=== PATIENT | male | born 1950 | race Caucasian/White ===

== ENCOUNTER 2017-09-20 06:46 | Outpatient (CLI) | payer OTHER, SELFPAY ==
[2017-09-20 07:27] LABS: Abs Immature Grans 0.02 k/cumm (0.0-0.09); Absolute Basophil Count 0.02 k/cumm (0.0-0.2); Absolute Eosinophil Count 0.12 k/cumm (0.0-0.7); Absolute Lymphocyte Count 1.92 k/cumm (1.2-3.4); Absolute Monocyte Count 0.45 k/cumm (0.11-0.7); Absolute Neutrophil Count 4.27 k/cumm (1.2-6.7); Basophils % 0.3; Eosinophils % 1.8; HCT 34.5 % (40.0-50.0); HGB 11.3 g/dL (13.5-17.5); Immature Grans % 0.3; Lymphocytes % 28.2; Mean Corp. HGB Concentration 32.8 g/dL (32.0-36.0); Mean Corpuscular Hemoglobin 31.7 pg (27.0-33.0); Mean Corpuscular Volume 96.6 fL (80-95); Mean Platelet Volume 9.5 fL (8.0-11.0); Monocytes % 6.6; Neutrophils % 62.8; Platelet Count 182 x1000/uL (130-400); RBC 3.57 m/cumm (4.50-6.00)
[2017-09-20 07:39] LABS: ALT 27 U/L (12-78); AST 24 U/L (15-37); Albumin 3.9 g/dL (3.4-5.0); Alkaline Phosphatase 96 U/L (46-116); Anion Gap 6.9 mmol/L (3-11); BUN 31 mg/dL (7-18); Bilirubin, Total 0.5 mg/dL (0.2-1.0); CO2 28.1 mmol/L (21.0-32.0); CREATININE 1.27 mg/dL (0.70-1.30); Calcium 8.8 mg/dL (8.5-10.1); Chloride 101 mmol/L (98-107); Glucose 112 mg/dL (70-100); Potassium 4.3 mmol/L (3.5-5.1); Sodium 136 mmol/L (136-145); Total Protein 7.7 g/dL (6.4-8.2)
[2017-09-23 10:02] LABS: PSA, Diagnostic 92.4 ng/ml (0-4.5)
== END 2017-09-20 06:47 ==
PROVIDERS: PCP Specialist/Technologist Athletic Trainer; Visit Provider Internal Medicine
DX: C61 Malignant neoplasm of prostate (principal)
CPT/HCPCS: 36415; 80053; 84153; 85025

== ENCOUNTER 2017-11-20 00:55 | Outpatient (CLI) | payer OTHER, SELFPAY ==
--- NOTE | 2017-11-20 10:40 | MERGE_ITS ---
*[facility]* *[facility]* [address] [place] [address] Date of study: 11/20/2017 Transthoracic Echocardiography M-mode, complete 2D, complete spectral Doppler, and color Doppler *STUDY CONCLUSIONS* Impressions: Significantly improved LV function. Summary: 1. Left ventricle: The cavity size was at the upper limits of normal. Wall thickness was normal. Systolic function was moderately to severely reduced. The estimated ejection fraction was 30-35%. Moderate diffuse hypokinesis with regional variations. Severe hypokinesis of the apical myocardium. 2. Aortic valve: There was trivial regurgitation. 3. Mitral valve: Mild thickening. There was mild regurgitation. 4. Right ventricle: The cavity size was at the upper limits of normal. Wall thickness was normal. Pacer wire or catheter noted in right ventricle. Systolic function was mildly reduced. 5. Pulmonary arteries: Pulmonary systolic pressure was mildly increased. PA peak pressure: 40mm Hg (S). *PATIENT PRESENTATION* Height: 165.1cm ((65in) ) S/D Pressure: 92 / 61 Weight: 85.3kg ((187.6lb) ) BSA: 2.01m^2 Test start time: 10:45 AM. Test stop time: 11:45 AM. PERFORMING Unknown PERFORMING [facility] SUPERVISOR [employer] POND Ann-Marie Patel RT (R)(CT), [facility] ORDERING Sara Burrell REFERRING Sara Burrell *PROCEDURE DATA* Procedure information: The patient was identified by two identifiers. This study was interpreted by [facility]. Pertinent images and digital data are archived for permanent storage and are available for subsequent review. Comparison was made to the study of 10/26/2016. Study status: Routine. Transthoracic echocardiography. M-mode, complete 2D, complete spectral Doppler, and color Doppler. A Transthoracic Echocardiogram was performed. Scanning was performed from the parasternal, apical, subcostal, and suprasternal notch acoustic windows. Images were obtained using an [id number] cardiac ultrasound machine. Image quality was fair. Study completion: The patient tolerated the procedure well. History: PMH: Cardiomyopathy. Systolic congestive heart failure. *CARDIAC ANATOMY* Left ventricle: The cavity size was at the upper limits of normal. Wall thickness was normal. Systolic function was moderately to severely reduced. The estimated ejection fraction was 30-35%. Moderate diffuse hypokinesis with regional variations. Regional wall motion abnormalities: Severe hypokinesis of the apical myocardium. Aortic valve: Trileaflet; normal thickness leaflets. Mobility was not restricted. Doppler: Transvalvular velocity was within the normal range. There was no stenosis. There was trivial regurgitation. VTI ratio of LVOT to aortic valve: 0.81. Valve area (VTI): 2.4cm^2. Indexed valve area (VTI): 1.2cm^2/m^2. Peak velocity ratio of LVOT to aortic valve: 0.74. Valve area (Vmax): 2.2cm^2. Indexed valve area (Vmax): 1.1cm^2/m^2. Mean velocity ratio of LVOT to aortic valve: 0.68. Valve area (Vmean): 2cm^2. Indexed valve area (Vmean): 1cm^2/m^2. Mean gradient (S): 4.2mm Hg. Peak gradient (S): 7.7mm Hg. Aorta: Aortic root: The aortic root was normal in size. Ascending aorta: The ascending aorta was normal in size. Mitral valve: Mild thickening. Mobility was not restricted. Doppler: Transvalvular velocity was within the normal range. There was no evidence for stenosis. There was mild regurgitation. Valve area by pressure half-time: 3.1cm^2. Indexed valve area by pressure half-time: 1.5cm^2/m^2. Left atrium: The atrium was at the upper limits of normal in size. Right ventricle: The cavity size was at the upper limits of normal. Wall thickness was normal. Pacer wire or catheter noted in right ventricle. Systolic function was mildly reduced. Pulmonic valve: Poorly visualized. Doppler: Transvalvular velocity was within the normal range. There was no evidence for stenosis. There was trivial regurgitation. Tricuspid valve: Structurally normal valve. Doppler: Transvalvular velocity was within the normal range. There was no evidence for stenosis. There was mild regurgitation. Pulmonary artery: Poorly visualized. Pulmonary systolic pressure was mildly increased. Right atrium: The atrium was normal in size. Pacer wire or catheter noted in right atrium. Pericardium: There was no pericardial effusion. Systemic veins: Inferior vena cava: Well visualized. The vessel was patent and normal in size. The respirophasic diameter changes were in the normal range (greater than or equal to 50%), consistent with normal central venous pressure. Baseline ECG: Normal sinus rhythm. Measurements Left ventricle Value 10/26/2016 Reference LV ID, ED, PLAX 5.7 cm 6.3 3.5 - 6.0 LV ID, ES, PLAX (H) 4.9 cm 5.6 2.1 - 4.0 LV PW thickness, ED, PLAX 0.9 cm 0.7 --------- LV end-diastolic volume, 155 ml 190 --------- 1-p A4C LV ejection fraction, 1-p 35 % 11 --------- A4C LV e', lateral 0.094 m/sec --------- LV E/e', lateral 7 --------- LV e', medial 0.071 m/sec --------- LV E/e', medial 9 --------- LV e', average 0.082 m/sec --------- LV E/e', average 8 --------- Ventricular septum Value 10/26/2016 Reference IVS thickness, ED, PLAX 0.9 cm 1.0 --------- LVOT Value 10/26/2016 Reference LVOT ID, A-P 1.9 cm 1.9 --------- LVOT area 2.9 cm^2 2.8 --------- LVOT peak velocity, S 1.03 m/sec 0.68 --------- LVOT mean velocity, S 0.66 m/sec --------- LVOT VTI, S 22.8 cm 12.1 --------- LVOT peak gradient, S 4.3 mm Hg --------- LVOT mean gradient, S 2.1 mm Hg 0.8 --------- Stroke volume (SV), LVOT DP 66 ml --------- Stroke index (SV/bsa), LVOT 33 ml/m^2 --------- DP Aortic valve Value 10/26/2016 Reference Aortic valve peak velocity, 1.4 m/sec --------- S Aortic valve mean velocity, 0.98 m/sec --------- S Aortic valve VTI, S 28.0 cm --------- Aortic mean gradient, S 4.2 mm Hg 3 --------- Aortic peak gradient, S 7.7 mm Hg 5 --------- VTI ratio, LVOT/AV 0.81 0.69 --------- Aortic valve area, VTI 2.4 cm^2 2 --------- Velocity ratio, peak, 0.74 --------- LVOT/AV Aortic valve area, peak 2.2 cm^2 1.8 --------- velocity Velocity ratio, mean, 0.68 --------- LVOT/AV Aortic valve area, mean 2 cm^2 --------- velocity Aortic valve area/bsa, mean 1 cm^2/m^2 --------- velocity Aorta Value 10/26/2016 Reference Aortic root ID, ED 3.1 cm 3.0 --------- Ascending aorta ID, A-P, S 3.2 cm 3.1 --------- RVOT Value 10/26/2016 Reference RVOT VTI, S 15.9 cm 10.2 --------- Left atrium Value 10/26/2016 Reference LA ID, A-P, ES 5.0 cm --------- LA ID/bsa, A-P (H) 2.5 cm/m^2 <=2.2 LA area, ES, A2C 18 cm^2 --------- LA volume/bsa, ES, 1-p A4C 33 ml/m^2 46 --------- LA/aortic root ratio 1.61 1.55 --------- Mitral valve Value 10/26/2016 Reference Mitral E-wave peak velocity 0.65 m/sec 0.85 --------- Mitral A-wave peak velocity 0.9 m/sec 0.3 --------- Mitral deceleration time (H) 248 ms 150 - 230 Mitral pressure half-time 72 ms 34 --------- Mitral E/A ratio, peak 0.72 2.88 --------- Mitral valve area, PHT, DP 3.1 cm^2 6.5 --------- Pulmonary arteries Value 10/26/2016 Reference PA pressure, S, DP (H) 40 mm Hg <=30 Tricuspid valve Value 10/26/2016 Reference Tricuspid regurg peak 2.8 m/sec 3.1 --------- velocity Tricuspid peak RV-RA 30.3 mm Hg 38.8 --------- gradient Systemic veins Value 10/26/2016 Reference Estimated CVP 10 mm Hg --------- Right ventricle Value 10/26/2016 Reference RV pressure, S, DP (H) 40 mm Hg <=30 Legend: (L) and (H) dorothy values outside specified reference range. I have personally reviewed the images and have reviewed and edited the reported findings. Electronically signed by Felix Montalvo 11/20/2017 21:09
== END 2017-11-20 01:15 ==
PROVIDERS: PCP Specialist/Technologist Athletic Trainer; Visit Provider Nurse Practitioner
DX: I25.5 Ischemic cardiomyopathy (principal); I50.22 Chronic systolic (congestive) heart failure; I50.1 Left ventricular failure, unspecified; I34.0 Nonrheumatic mitral (valve) insufficiency; Z95.810 Presence of automatic (implantable) cardiac defibrillator
CPT/HCPCS: 93306

== ENCOUNTER 2017-11-28 07:00 | Outpatient (CLI) | payer OTHER, SELFPAY ==
[2017-11-28 08:17] LABS: Anion Gap 8.8 mmol/L (3-11); BUN 23 mg/dL (7-18); CO2 29.2 mmol/L (21.0-32.0); CREATININE 1.04 mg/dL (0.70-1.30); Calcium 9.2 mg/dL (8.5-10.1); Chloride 102 mmol/L (98-107); Glucose 112 mg/dL (70-100); NT-proBNP 402 pg/mL; Potassium 4.3 mmol/L (3.5-5.1); Sodium 140 mmol/L (136-145)
== END 2017-11-28 07:20 ==
PROVIDERS: PCP Specialist/Technologist Athletic Trainer; Visit Provider Nurse Practitioner
DX: R06.02 Shortness of breath (principal); I25.5 Ischemic cardiomyopathy
CPT/HCPCS: 36415; 80048; 83880

== ENCOUNTER 2017-12-23 00:16 | Outpatient (CLI) | payer OTHER, SELFPAY ==
[2017-12-23 07:28] LABS: Abs Immature Grans 0.01 k/cumm (0.0-0.09); Absolute Basophil Count 0.02 k/cumm (0.0-0.2); Absolute Eosinophil Count 0.12 k/cumm (0.0-0.7); Absolute Lymphocyte Count 1.48 k/cumm (1.2-3.4); Absolute Monocyte Count 0.52 k/cumm (0.11-0.7); Absolute Neutrophil Count 4.15 k/cumm (1.2-6.7); Basophils % 0.3; Eosinophils % 1.9; HGB 9.8 g/dL (13.5-17.5); Immature Grans % 0.2; Lymphocytes % 23.5; Mean Corp. HGB Concentration 30.6 g/dL (32.0-36.0); Mean Corpuscular Hemoglobin 28.8 pg (27.0-33.0); Mean Corpuscular Volume 94.1 fL (80-95); Mean Platelet Volume 8.5 fL (8.0-11.0); Monocytes % 8.3; Neutrophils % 65.8; Platelet Count 202 x1000/uL (130-400)
[2017-12-23 07:41] LABS: ALT 19 U/L (12-78); AST 26 U/L (15-37); Albumin 3.4 g/dL (3.4-5.0); Alkaline Phosphatase 91 U/L (46-116); Anion Gap 6.5 mmol/L (3-11); BUN 25 mg/dL (7-18); Bilirubin, Total 0.4 mg/dL (0.2-1.0); CO2 30.5 mmol/L (21.0-32.0); Calcium 8.8 mg/dL (8.5-10.1); Chloride 101 mmol/L (98-107); Glucose 111 mg/dL (70-100); Potassium 3.8 mmol/L (3.5-5.1); Sodium 138 mmol/L (136-145); Total Protein 6.9 g/dL (6.4-8.2)
[2017-12-23 08:21] LABS: NT-proBNP 395 pg/mL
[2017-12-24 09:39] LABS: PSA, Diagnostic 179.4 ng/ml (0-4.5)
[2017-12-25 04:03] LABS: Testosterone, Total <7.0 ng/dL (240-950)
== END 2017-12-23 00:36 ==
PROVIDERS: PCP Specialist/Technologist Athletic Trainer; Visit Provider Internal Medicine
DX: C61 Malignant neoplasm of prostate (principal); I50.20 Unspecified systolic (congestive) heart failure; I25.5 Ischemic cardiomyopathy
CPT/HCPCS: 36415; 80053; 84403; 83880; 84153; 85025

== ENCOUNTER 2018-02-14 05:09 | Emergency (ER) | payer OTHER, SELFPAY ==
[2018-02-14 05:18] VITALS: BP 119/68; PULSE 79; RESP 16; TEMP 36.5; O2SAT 96
--- NOTE | 2018-02-14 05:48 | W.ED.GENAD ---
Discharge Plan Disposition Patient Disposition: HOME Condition: Good Discharge Details Chief Complaint: Urinary Clinical Impression: Hematuria Primary Care Provider: Nolberto Robert ED Provider: Barak Felton Home Meds and New Rx's Prescriptions: New cephalexin [Keflex] 500 mg capsule 500 mg PO BID 7 Days Qty: 14 RF: 0 No Action leuprolide 1 MG/0.2 ML kit 22.5 mg SQ every 3 mos RF: 0 cholecalciferol (vitamin D3) 1,000 UNITS tablet 2 tab PO DAILY RF: 0 calcium carbonate-vitamin D3 [Calcium 600 + D(3)] 1 EACH tablet 1 ea PO DAILY RF: 0 losartan 50 MG tablet 50 mg PO QAM RF: 0 atorvastatin [Lipitor] 40 MG tablet 40 mg PO HS RF: 0 torsemide 20 MG tablet 120 mg PO DAILY RF: 0 metoprolol succinate [Toprol XL] 50 MG tablet extended release 24 hr 75 mg PO DAILY RF: 0 aspirin [Aspir-81] 81 MG tablet,delayed release (DR/EC) 81 mg PO DAILY RF: 0 Discharge Instructions Instructions: Hematuria (ED) Additional Instructions: Please follow-up with Dr. Prakash on Saturday. If you notice an inability to pass urine, large clots causing pain, worsening pain in your pelvis abdomen or genitals, please return to the ER immediately. Please take the antibiotic as directed. If you notice any worsening of your symptoms, or any new symptoms such as vomiting, diarrhea, fever, chills, shortness of breath, chest pain, numbness, weakness, or fainting , please return immediately to the emergency department for reevaluation. Please follow up with your primary care provider as soon as possible for reassessment and reevaluation. As always, it was a pleasure participating in your medical care today. Referrals: Owen Prakash MD [ [facility] STAFF PHYSICIAN] - Discharge Data Discharge Date/Time-TO BE ENTERED AT DEPARTURE: 02/14/18 09:03 Medical Decision Making <Shine Contreras MD - Last Filed: 02/15/18 00:42> Patient presenting with gross hematuria. He has no pain or fever. He is no longer on Plavix and only takes a baby aspirin a day. He does have a history of prostate cancer. He, by report, did not have cystoscopy or workup following his gross hematuria in September. He does not appear to be in distress. Case is discussed with urology, Dr. Prakash. He does agree that patient probably should have repeat cystoscopy and workup. We will therefore place an IV and get CBC and chemistry for renal function. Plan CT scan with IV contrast as long as creatinine allows for it. Bladder scan in the ED shows only about 125 mL's present. Creatinine is normal. CBC with normal white count. Hemoglobin a little bit lower than baseline but not significant. Urinalysis without clots just blood. CT scan has been completed but not read. Patient will be signed over to Dr. Felton who will follow up on CT results and discuss with Dr. Prakash prior to discharge. Lab Data Lab results reviewed: Yes I reviewed the patient's lab results. <Barak Felton DO - Last Filed: 02/14/18 08:32> The patient was signed out to me by my colleague Dr. Contreras. Patient continues to have reassuring vital signs, CT scan results demonstrate notably inflamed and irritated looking prostate with mild left-sided hydronephrosis. Patient's renal function is stable. Creatinine is 0.99. He is still able to make to rate. He has no significant pain. Contacted Dr. Prakash and discussed the case with him, he feels that patient would benefit from cystoscopy in the outpatient setting secondary to his chronic medical conditions. We will set that up for Saturday morning. He also recommends antibiotic on the end term. Patient will be started on Keflex. I discussed the imaging with radiology and they see no other acute process in the abdomen at this time. Patient will be discharged home with close follow-up on Saturday. We discussed red flags which to return. I have extensively reviewed the treatment plan and discharge instructions with the patient and their family. I have addressed all patient concerns at this time. The patient and family was made aware of what symptoms to monitor for that would warrant a return to the emergency department. Discussed the plan with the patient and family, they demonstrate verbal understanding and agreement with our assessment and plan at this time. HPI <Shine Contreras MD - Last Filed: 02/15/18 00:42> General Mode of arrival: ambulatory. Date/Time Provider Initiated Documentation: 02/14/18 05:48. Limitations to Documentation: no limitations. Information obtained by: patient. HPI Narrative: Patient presents to ED with gross hematuria. Patient reports that it started last evening. This morning seems to be worse with some clots. He is not having any pain. He has no fever. He is not having significant difficulty urinating. He does have a history of metastatic prostate cancer for which he is followed by heme/onc. He does not have a urologist. He did have workup by urology including cystoscopy back in 2007 at the onset of his diagnosis of prostate cancer. In September he had gross hematuria resulting in a large clot in his bladder. Apparently went to [facility] where the clot was cleared and he was taken off Plavix. He did not have further workup and had no repeat cystoscopy or imaging done. He had been doing well until last evening. Related Data Home Medications Medication Instructions Recorded Confirmed leuprolide 22.5 mg SQ every 3 mos kit 05/16/15 02/14/18 calcium carbonate-vitamin D3 1 ea PO DAILY 09/01/15 02/14/18 [Calcium 600 + D(3)] cholecalciferol (vitamin D3) 2 tab PO DAILY 09/01/15 02/14/18 aspirin [Aspir-81] 81 mg PO DAILY 11/03/16 02/14/18 atorvastatin [Lipitor] 40 mg PO HS 11/03/16 02/14/18 metoprolol succinate [Toprol XL] 75 mg PO DAILY 11/03/16 02/14/18 torsemide 120 mg PO DAILY 11/03/16 02/14/18 losartan 50 mg PO QAM 10/08/17 02/14/18 cephalexin [Keflex] 500 mg PO BID 7 Days #14 cap 02/14/18 Previous Rx's Medication Instructions Recorded cephalexin [Keflex] 500 mg PO BID 7 Days #14 cap 02/14/18 Allergies Allergy/AdvReac Type Severity Reaction Status Date / Time No Known Allergies Allergy Unverified 02/14/18 05:27 General Stated Complaint: GI Bleed HOMER: 3 Review of Systems <Shine Contreras MD - Last Filed: 02/15/18 00:42> Constitutional Denies chills, Denies fatigue, Denies fever(s), Denies headache(s), Denies malaise and Denies weakness ENT Denies otalgia, Denies headache(s), Denies nasal congestion and Denies sinus pressure Cardiovascular Denies chest pain, Denies syncope, Denies lightheadedness, Denies palpitations and Denies dyspnea Respiratory Denies cough, Denies pain with cough and Denies dyspnea Gastrointestinal Denies abdominal pain, Denies melena, Denies hematochezia, Denies diarrhea, Denies nausea and Denies vomiting Genitourinary Reports hematuria, Denies dysuria, Denies urinary frequency, Denies urinary hesitancy and Denies urinary incontinence Musculoskeletal Denies back pain, Denies myalgias and Denies numbness Integumentary/Breasts Denies rash Neurologic Denies syncope, Denies headache(s), Denies numbness and Denies weakness Endocrine Denies fatigue and Denies palpitations PFSH <Shine Contreras MD - Last Filed: 02/15/18 00:42> Medical History CAD (coronary artery disease) (Chronic) Cardiomyopathy (Chronic) Prostate cancer (Chronic) Surgical History S/P implantation of automatic cardioverter/defibrillator (AICD) (Inactive) S/P orchiectomy (Inactive) Social History Smoking/Tobacco Use Status: Never Exam <Shine Contreras MD - Last Filed: 02/15/18 00:42> Const General: cooperative and comfortable Orientation: alert and oriented x3 [facility] Head: normocephalic and atraumatic Neck Neck: trachea midline and supple Resp Effort & Inspection: normal respiratory effort Auscultation: clear to auscultation bilaterally Cardio Rate: regular rate Rhythm: regular rhythm Heart Sounds: S1 normal and S2 normal GI Palpation: soft, not firm and nontender Back/Spine/Pelvis Back: no CVA tenderness Skin Rashes: no rashes Neuro General: alert, oriented x3, no focal motor deficits and CN's II-XI intact bilaterally Extrem General: no clubbing, cyanosis or edema Course <Shine Contreras MD - Last Filed: 02/15/18 00:42> Vital Signs Temperature 97.7 F 02/14/18 05:18 Pulse 79 02/14/18 05:18 Respiratory Rate 16 02/14/18 05:18 Blood Pressure 119/68 02/14/18 05:18 Pulse Oximetry 96 02/14/18 05:18 Temperature 97.7 F 02/14/18 05:18 Temperature Source Temporal Artery Scan 02/14/18 05:18 Pulse 79 02/14/18 05:18 Respiratory Rate 16 02/14/18 05:18 Respiratory Effort 02/14/18 05:18 Blood Pressure 119/68 02/14/18 05:18 Pulse Oximetry 96 02/14/18 05:18 Oxygen Delivery Method Room Air 02/14/18 05:18 Oxygen Flow Rate 0 02/14/18 05:18 Pain Level 0 02/14/18 05:18
--- NOTE | 2018-02-14 06:11 | DI.CT_ITS ---
SYMPTOM/DIAGNOSIS: GROSS HEMATURIA CT ABDOMEN AND PELVIS: 02/14/18 The study was conducted according to the usual protocol with intravenous administration of 100 cc Omnipaque 350. The patient has a history of gross hematuria. There is a sizeable bilateral pleural effusion. No gross pulmonary abnormality is demonstrated and there are apparent small regions of atelectasis involving the lung bases in conjunction with the pleural fluid. A small area of pleural based calcification is demonstrated in the posterior portion of the left hemithorax would be consistent with an old area of scarring or old healed granulomatous disease. The heart is not enlarged. There is pericardial effusion. Cardiac pacing leads are noted ending in the right atrium and right ventricle. The liver is intact. There is some thickening of the gallbladder wall with no evidence of definite pericholecystic fluid. There are no stones or ductal dilatation. The pancreas is unremarkable. The spleen is normal. The right kidney is unremarkable. There is a moderate hydronephrosis involving the left kidney and there is moderate to severe left ureterectasis. No stone is identified. There is a very large lobulated heterogeneous mass involving the bladder floor which appears to arise from the prostate and may in fact represent a tumor with invasion of the supra-adjacent posterior and posterolateral bladder wall. There is generalized bladder wall thickening also noted which could be on the basis of cystitis. There is no evidence of free fluid or free air in the intraperitoneal space. There is no evidence of bowel obstruction or localized bowel pathology. The appendix is normal. Incidentally, the adrenals are normal. Note is made of a 1.1 cm left retroperitoneal lymph node at the level of the left renal pedicle. There are at least 2 other small nodes in this region. In addition, there are a number of lymph nodes in the mid and inferior portions of the retroperitoneal space and questionable lymphadenopathy involving the pelvis, however, note is made of irregular nodular densities in the seminal vesicles and the possibility of prostatic tumor invasion through the capsule posteriorly and in to the seminal vesicles is raised. Incidentally, there is no evidence of bowel obstruction The appendix is normal. There is no evidence of an aortic aneurysm with note made of sclerotic and lytic regions involving the body of L-1 entirely consistent with metastatic disease. Note is made of degenerative changes involving the spine as well. There is no evidence of free air or free fluid in the intraperitoneal space. SUMMARY: Findings entirely consistent with prostatic carcinoma with lymphadenopathy and bony metastasis as described above. Note is made of moderately severe left hydronephrosis secondary to obstruction of the left upper track by the prostatic mass. There is also note made of thickening of the bladder wall and findings which would certainly suggest invasion of the bladder wall by the prostatic malignancy and there is evidence of adenopathy in the abdomen and pelvis The findings above should be correlated with a cystoscopic examination and further evaluation with a radionuclide bone scan would also be of value. Will discuss this further with Dr. Contreras in the E.R.
--- NOTE | 2018-02-14 06:14 | ED.GENADUL_ITS ---
Discharge Plan Disposition Patient Disposition: HOME Condition: Good Discharge Details Chief Complaint: Urinary Clinical Impression: Hematuria Primary Care Provider: Nolberto Robert ED Provider: Barak Felton Home Meds and New Rx's Prescriptions: New cephalexin [Keflex] 500 mg capsule 500 mg PO BID 7 Days Qty: 14 RF: 0 No Action leuprolide 1 MG/0.2 ML kit 22.5 mg SQ every 3 mos RF: 0 cholecalciferol (vitamin D3) 1,000 UNITS tablet 2 tab PO DAILY RF: 0 calcium carbonate-vitamin D3 [Calcium 600 + D(3)] 1 EACH tablet 1 ea PO DAILY RF: 0 losartan 50 MG tablet 50 mg PO QAM RF: 0 atorvastatin [Lipitor] 40 MG tablet 40 mg PO HS RF: 0 torsemide 20 MG tablet 120 mg PO DAILY RF: 0 metoprolol succinate [Toprol XL] 50 MG tablet extended release 24 hr 75 mg PO DAILY RF: 0 aspirin [Aspir-81] 81 MG tablet,delayed release (DR/EC) 81 mg PO DAILY RF: 0 Discharge Instructions Instructions: Hematuria (ED) Additional Instructions: Please follow-up with Dr. Prakash on Saturday. If you notice an inability to pass urine, large clots causing pain, worsening pain in your pelvis abdomen or genitals, please return to the ER immediately. Please take the antibiotic as directed. If you notice any worsening of your symptoms, or any new symptoms such as vomiting, diarrhea, fever, chills, shortness of breath, chest pain, numbness, weakness, or fainting , please return immediately to the emergency department for reevaluation. Please follow up with your primary care provider as soon as possible for reassessment and reevaluation. As always, it was a pleasure participating in your medical care today. Referrals: Owen Prakash MD [ [facility] STAFF PHYSICIAN] - Discharge Data Discharge Date/Time-TO BE ENTERED AT DEPARTURE: 02/14/18 09:03 Medical Decision Making <Shine Contreras MD - Last Filed: 02/15/18 00:42> Patient presenting with gross hematuria. He has no pain or fever. He is no longer on Plavix and only takes a baby aspirin a day. He does have a history of prostate cancer. He, by report, did not have cystoscopy or workup following his gross hematuria in September. He does not appear to be in distress. Case is dis cussed with urology, Dr. Prakash. He does agree that patient probably should have repeat cystoscopy and workup. We will therefore place an IV and get CBC and chemistry for renal function. Plan CT scan with IV contrast as long as creatinine allows for it. Bladder scan in the ED shows only about 125 mL's present. Creatinine is normal. CBC with normal white count. Hemoglobin a little bit lower than baseline but not significant. Urinalysis without clots just blood. CT scan has been completed but not read. Patient will be signed over to Dr. Felton who will follow up on CT results and discuss with Dr. Prakash prior to discharge. Lab Data Lab results reviewed: Yes I reviewed the patient's lab results. <Barak Felton DO - Last Filed: 02/14/18 08:32> The patient was signed out to me by my colleague Dr. Contreras. Patient continues to have reassuring vital signs, CT scan results demonstrate notably inflamed and irritated looking prostate with mild left-sided hydronephrosis. Patient's renal function is stable. Creatinine is 0.99. He is still able to make to rate. He has no significant pain. Contacted Dr. Prakash and discussed the case with him, he feels that patient would benefit from cystoscopy in the outpatient setting secondary to his chronic medical conditions. We will set that up for Saturday morning. He also recommends antibiotic on the end term. Patient will be started on Keflex. I discussed the imaging with radiology and they see no other acute process in the abdomen at this time. Patient will be discharged home with close follow-up on Saturday. We discussed red flags which to return. I have extensively reviewed the treatment plan and discharge instructions with the patient and their family. I have addressed all patient concerns at this time. The patient and family was made aware of what symptoms to monitor for that would warrant a return to the emergency department. Discussed the plan with the patient and family, they demonstrate verbal understanding and agreement with our assessment and plan at this time. HPI <Shine Contreras MD - Last Filed: 02/15/18 00:42> General Mode of arrival: ambulatory . Date/Time Provider Initiated Documentation: 02/14/18 05:48 . Limitations to Documentation: no limitations . Information obtained by: patient . HPI Narrative: Patient presents to ED with gross hematuria. Patient reports that it started last evening. This morning seems to be worse with some clots. He is not having any pain. He has no fever. He is not having significant difficulty urinating. He does have a history of metastatic prostate cancer for which he is followed by heme/onc. He does not have a urologist. He did have workup by urology including cystoscopy back in 2007 at the onset of his diagnosis of prostate cancer. In September he had gross hematuria resulting in a large clot in his bladder. Apparently went to [facility] where the clot was cleared and he was taken off Plavix. He did not have further workup and had no repeat cystoscopy or imaging done. He had been doing well until last evening. Related Data Home Medications Medication Instructions Recorded Confirmed leuprolide 22.5 mg SQ every 3 mos kit 05/16/15 02/14/18 calcium carbonate-vitamin D3 1 ea PO DAILY 09/01/15 02/14/18 [Calcium 600 + D(3)] cholecalciferol (vitamin D3) 2 tab PO DAILY 09/01/15 02/14/18 aspirin [Aspir-81] 81 mg PO DAILY 11/03/16 02/14/18 atorvastatin [Lipitor] 40 mg PO HS 11/03/16 02/14/18 metoprolol succinate [Toprol XL] 75 mg PO DAILY 11/03/16 02/14/18 torsemide 120 mg PO DAILY 11/03/16 02/14/18 losartan 50 mg PO QAM 10/08/17 02/14/18 cephalexin [Keflex] 500 mg PO BID 7 Days #14 cap 02/14/18 Previous Rx's Medication Instructions Recorded cephalexin [Keflex] 500 mg PO BID 7 Days #14 cap 02/14/18 Allergies Allergy/AdvReac Type Severity Reaction Status Date / Time No Known Allergies Allergy Unverified 02/14/18 05:27 General Stated Complaint: GI Bleed HOMER: 3 Review of Systems <Shine Contreras MD - Last Filed: 02/15/18 00:42> Constitutional Denies chills, Denies fatigue, Denies fever(s), Denies headache(s), Denies malaise and Denies weakness ENT Denies otalgia, Denies headache(s), Denies nasal congestion and Denies sinus pressure Cardiovascular Denies chest pain, Denies syncope, Denies lightheadedness, Denies palpitations and Denies dyspnea Respiratory Denies cough, Denies pain with cough and Denies dyspnea Gastrointestinal Denies abdominal pain, Denies melena, Denies hematochezia, Denies diarrhea, Denies nausea and Denies vomiting Genitourinary Reports hematuria, Denies dysuria, Denies urinary frequency, Denies urinary hesitancy and Denies urinary incontinence Musculoskeletal Denies back pain, Denies myalgias and Denies numbness Integumentary/Breasts Denies rash Neurologic Denies syncope, Denies headache(s), Denies numbness and Denies weakness Endocrine Denies fatigue and Denies palpitations PFSH <Shine Contreras MD - Last Filed: 02/15/18 00:42> Medical History CAD (coronary artery disease) (Chronic) Cardiomyopathy (Chronic) Prostate cancer (Chronic) Surgical History S/P implantation of automatic cardioverter/defibrillator (AICD) (Inactive) S/P orchiectomy (Inactive) Social History Smoking/Tobacco Use Status: Never Exam <Shine Contreras MD - Last Filed: 02/15/18 00:42> Const General: cooperative and comfortable Orientation: alert and oriented x3 [facility] Head: normocephalic and atraumatic Neck Neck: trachea midline and supple Resp Effort & Inspection: normal respiratory effort Auscultation: clear to auscultation bilaterally Cardio Rate: regular rate Rhythm: regular rhythm Heart Sounds: S1 normal and S2 normal GI Palpation: soft, not firm and nontender Back/Spine/Pelvis Back: no CVA tenderness Skin Rashes: no rashes Neuro General: alert, oriented x3, no focal motor deficits and CN's II-XI intact b ilaterally Extrem General: no clubbing, cyanosis or edema Course <Shine Contreras MD - Last Filed: 02/15/18 00:42> Vital Signs Temperature 97.7 F 02/14/18 05:18 Pulse 79 02/14/18 05:18 Respiratory Rate 16 02/14/18 05:18 Blood Pressure 119/68 02/14/18 05:18 Pulse Oximetry 96 02/14/18 05:18 Temperature 97.7 F 02/14/18 05:18 Temperature Source Temporal Artery Scan 02/14/18 05:18 Pulse 79 02/14/18 05:18 Respiratory Rate 16 02/14/18 05:18 Respiratory Effort 02/14/18 05:18 Blood Pressure 119/68 02/14/18 05:18 Pulse Oximetry 96 02/14/18 05:18 Oxygen Delivery Method Room Air 02/14/18 05:18 Oxygen Flow Rate 0 02/14/18 05:18 Pain Level 0 02/14/18 05:18
[2018-02-14 07:15] LABS: Abs Immature Grans 0.01 k/cumm (0.0-0.09); Absolute Basophil Count 0.01 k/cumm (0.0-0.2); Absolute Eosinophil Count 0.09 k/cumm (0.0-0.7); Absolute Lymphocyte Count 1.32 k/cumm (1.2-3.4); Absolute Monocyte Count 0.47 k/cumm (0.11-0.7); Absolute Neutrophil Count 5.01 k/cumm (1.2-6.7); Basophils % 0.1; Eosinophils % 1.3; Immature Grans % 0.1; Lymphocytes % 19.1; Mean Corpuscular Hemoglobin 28.8 pg (27.0-33.0); Mean Corpuscular Volume 92.7 fL (80-95); Mean Platelet Volume 8.3 fL (8.0-11.0); Monocytes % 6.8; Neutrophils % 72.6; Platelet Count 304 x1000/uL (130-400); RBC 3.13 m/cumm (4.50-6.00); RBC Distribution Width 15.3 % (11.8-14.1); White Blood Cell Count 6.91 k/cumm (4.4-10.8)
[2018-02-14] MEDS: Normal Saline 1,000 ML 125 ML IV (07:21)
[2018-02-14 07:25] VITALS: BP 103/60; PULSE 68; RESP 18; TEMP 36.8; O2SAT 99
--- NOTE | 2018-02-14 07:28 | NUR.NOTE ---
Nursing Note: Pt awake and alert, denies any pain. states he has been voiding blood, upon inspection urine with gross hematuria. vitals stable. denies any sob or n/v. afebrile. at bedside. awaiting imaging. will continue to monitor.
[2018-02-14 07:36] LABS: Anisocytosis 1+; BUN 21 mg/dL (7-18); Basophilic Stippling Present; CREATININE 0.99 mg/dL (0.70-1.30); Calcium 8.8 mg/dL (8.5-10.1); Chloride 101 mmol/L (98-107); Diff Comment RBC Morph Reviewed; Glucose 120 mg/dL (70-100); Hypochromasia 1+; Potassium 4.3 mmol/L (3.5-5.1); Sodium 139 mmol/L (136-145)
[2018-02-14 07:37] LABS: Poikilocytes 1+; Polychromasia Present
[2018-02-14 07:43] LABS: Bilirubin Small (Negative); Blood Large (Negative); Clarity Cloudy; Glucose Negative (Negative); Ketones Negative (Negative); Leukocyte Esterase Negative (Negative); Nitrite Negative (Negative); Specific Gravity 1.015 (1.005-1.025); Urobilinogen 0.2 EU/dL (Up TO 0.2)
[2018-02-14 07:51] LABS: RBC >50 (0-2)
[2018-02-14 07:52] LABS: C & S Indicated? Yes
[2018-02-14] MEDS: Omnipaque 350 MG/ML 100 ML BTL IJ (07:52)
--- NOTE | 2018-02-14 08:01 | NUR.NOTE ---
Nursing Note:Returned from CT. resting comfortably in bed, call light in reach.
== END 2018-02-14 09:03 | disposition home or self-care (01) ==
PROVIDERS: Emergency Medicine; Emergency Provider Student in an Organized Health Care Education/Training Program; PCP Specialist/Technologist Athletic Trainer
DX: R31.0 Gross hematuria (principal); Z85.46 Personal history of malignant neoplasm of prostate; Z79.82 Long term (current) use of aspirin
CPT/HCPCS: 36415; 80048; 96361; 99284; 74177; 81003; 81015; 85025; 87086; 99283; J3490

== ENCOUNTER 2018-02-20 01:14 | Emergency (ER) | payer OTHER, SELFPAY ==
[2018-02-20 01:19] VITALS: BP 127/73; PULSE 78; RESP 16; TEMP 36.4; O2SAT 100
--- NOTE | 2018-02-20 01:44 | ED.GENADUL_ITS ---
Discharge Plan Disposition Patient Disposition: HOME Condition: Stable Discharge Details Chief Complaint: Urinary Clinical Impression: Acute urinary retention Primary Care Provider: Nolberto Robert ED Provider: Barak Felton Home Meds and New Rx's Prescriptions: No Action leuprolide 1 MG/0.2 ML kit 22.5 mg SQ every 3 mos RF: 0 cholecalciferol (vitamin D3) 1,000 UNITS tablet 2 tab PO DAILY RF: 0 calcium carbonate-vitamin D3 [Calcium 600 + D(3)] 1 EACH tablet 1 ea PO DAILY RF: 0 losartan 50 MG tablet 50 mg PO QAM RF: 0 cephalexin [Keflex] 500 mg capsule 500 mg PO BID 7 Days Qty: 14 RF: 0 atorvastatin [Lipitor] 40 MG tablet 40 mg PO HS RF: 0 torsemide 20 MG tablet 120 mg PO DAILY RF: 0 metoprolol succinate [Toprol XL] 50 MG tablet extended release 24 hr 75 mg PO DAILY RF: 0 aspirin [Aspir-81] 81 MG tablet,delayed release (DR/EC) 81 mg PO DAILY RF: 0 Discharge Instructions Instructions: Urinary Retention in Men (ED) Additional Instructions: Continue her home antibiotic that you are currently on. Please keep the Calix in place. Dr. Prakash will be contacting you to see if you need an additional antibiotic after culture results return. Please follow-up with Dr. Prakash your scheduled appointment. If you notice any worsening of your symptoms, or any new symptoms such as vomiting, diarrhea, fever, chills, shortness of breath, chest pain, numbness, weakness, or fainting , please return immediately to the emergency department for reevaluation. Please follow up with your primary care provider as soon as possible for reassessment and reevaluation. As always, it was a pleasure participating in your medical care today. Referrals: Owen Prakash MD [ [facility] STAFF PHYSICIAN] - Medical Decision Making This is a 67-year-old male with a past medical history of notable to severe prostate cancer, who recently had a hematuria within the past week, and was eventually discharged home without a Calix as he was able to make urine well without any clots. He is scheduled to follow-up with Dr. Prakash his follow-up appointment was scheduled for early March. He has been doing well over the past few days, he has had no blood except until tonight. Fortunately he has also noted clots, notable suprapubic pressure. He denies any severe pain, or associated vomiting or diarrhea. Physical exam demonstrates normal vital signs with a reassuring heart rate, normal blood pressure. Genital exam demonstrates no other significant abnormalities. I did discuss potential laboratory workup versus holding off for the time being, the patient would like to hold off on any additional needle sticks or labs at this time. No clear indication for repeat imaging at this time. We will place a Calix catheter for washout. Patient will most likely require a leg bag for home use and continue close follow-up with Dr. Prakash. 4:13 a.m. Multiple attempts have been made with various types of catheter including a 16 [place], 14 coud? catheter, and a pediatric catheter, unfortunately none of these have been able to pass. The patient seems to have a very tight, borderline impassable stricture roughly 1 cm in from the urethral meatus. The patient does have over 400 cc in his bladder at this time but is comfortable. I am concerned that there may be a new stricture, mass, or other abnormality causing his symptoms. We will get basic labs, and contact Dr. Prakash for potential suprapubic catheter further evaluation. 7:[address] Prakash has come by and assessed the patient. Utilizing a HIDA wire and dilator he was able to place a Calix catheter. Notable amount of urine was obtained. Patient tolerated the procedure well and does have a Calix leg bag in place now. Dr. Prakash has requested that the patient continue his antibiotic that he was initially prescribed. He has requested a urine culture. We will get this. Dr. Prakash will be contacting the patient later this week to see if a different antibiotic is indicated. Is also requested that the patient follow-up closely next week. Patient is feeling well at this time, vital signs are reassuring. Patient will be discharged home. I have extensively reviewed the treatment plan and discharge instructions with the patient and their family. I have addressed all patient concerns at this time. The patient and family was made aware of what symptoms to monitor for that would warrant a return to the emergency department. Discussed the plan with the patient and family, they demonstrate verbal understanding and agreement with our assessment and plan at this time. HPI General Date/Time Provider Initiated Documentation: 02/20/18 01:24 . HPI Narrative: This is a 67-year-old male with a past medical history of prostate cancer, who is not a candidate for radiation or chemo but is taking Lupron for hormonal treatment. He was recently searing here in the emergency department roughly 1 week ago, where he had notable hematuria at that time but no evidence of clots. Dr. Prakash was contacted, and after a CT scan showing mild hydro-, as well as a notable prostate cancer Dr. Prakash recommended close outpatient follow- up. Patient's follow-up appointment is scheduled for March 21. Patient was still able to make a good stream, and a Calix catheter was not placed. He was discharged home and he had resolution of his hematuria roughly 3-4 days later, he has been hematuria free for the last 4 days until tonight. He noticed again return of the hematuria, with some mild associated suprapubic pressure. He denies any burning, dysuria, nausea, vomiting, or diarrhea. He has been taking his Keflex antibiotic as directed and still has 1-2 days left of treatment peer he is not on a blood thinners except for a baby aspirin. He denies any other complaints, modifying factors, recent surgery, pertinent family history, or IV or illicit drug use. Related Data Home Medications Medication Instructions Recorded Confirmed leuprolide 22.5 mg SQ every 3 mos kit 05/16/15 02/14/18 calcium carbonate-vitamin D3 1 ea PO DAILY 09/01/15 02/14/18 [Calcium 600 + D(3)] cholecalciferol (vitamin D3) 2 tab PO DAILY 09/01/15 02/14/18 aspirin [Aspir-81] 81 mg PO DAILY 11/03/16 02/14/18 atorvastatin [Lipitor] 40 mg PO HS 11/03/16 02/14/18 metoprolol succinate [Toprol XL] 75 mg PO DAILY 11/03/16 02/14/18 torsemide 120 mg PO DAILY 11/03/16 02/14/18 losartan 50 mg PO QAM 10/08/17 02/14/18 cephalexin [Keflex] 500 mg PO BID 7 Days #14 cap 02/14/18 Previous Rx's Medication Instructions Recorded cephalexin [Keflex] 500 mg PO BID 7 Days #14 cap 02/14/18 Allergies Allergy/AdvReac Type Severity Reaction Status Date / Time No Known Allergies Allergy Unverified 02/14/18 05:27 General Stated Complaint: Urinary HOMER: 3 Review of Systems Review of Systems All systems reviewed & are unremarkable except as noted in HPI and below PFSH Social History Smoking/Tobacco Use Status: Never Exam Narrative Exam Narrative: 1.Const: Well-nourished, Well-developed, appearing stated age 2.Eyes: PERRL, no conjunctival injection, and symmetrical lids. No evidence of conjunctival pallor. 3.ENT: Atraumatic external nose and ears. Moist MM. Neck: Symmetric, trachea midline, No thyromegaly. 4.CVS: +S1/S2, No murmurs or gallops. Peripheral pulses 2+ and equal in all extremities. Brisk capillary refill in all extremities. 5.RESP: Unlabored respiratory effort. Clear to auscultation bilaterally. No wheezes rales or rhonchi 6.GI: Soft, Nontender/Nondistended, No hepatosplenomegaly. No guarding or rebound. Minimal suprapubic tenderness/pressure. 7.MSK: Normocephalic/Atraumatic, Extremities w/o deformity or ttp No cyanosis or clubbing, Normal movement of all extremities 8.Skin: Warm, Dry. No rashes or lesions. No pallor 9.Neuro: endoscope technician II-XII grossly intact. Sensation grossly intact, no focal neurologic deficits. 10.Psych: (AAO) x3. Appropriate mood and affect Course Vital Signs Temperature 36.4 C L 02/20/18 01:19 Pulse 78 02/20/18 01:19 Respiratory Rate 16 02/20/18 01:19 Blood Pressure 127/73 02/20/18 01:19 Pulse Oximetry 100 02/20/18 01:19 Temperature 36.4 C L 02/20/18 01:19 Pulse 78 02/20/18 01:19 Respiratory Rate 16 02/20/18 01:19 Respiratory Effort 02/20/18 01:19 Blood Pressure 127/73 02/20/18 01:19 Pulse Oximetry 100 02/20/18 01:19 Oxygen Delivery Method Room Air 02/20/18 01:19 Oxygen Flow Rate 0 02/20/18 01:19 Pain Level 0 02/20/18 01:31
[2018-02-20 03:26] LABS: Abs Immature Grans 0.02 k/cumm (0.0-0.09); Absolute Basophil Count 0.01 k/cumm (0.0-0.2); Absolute Eosinophil Count 0.07 k/cumm (0.0-0.7); Absolute Lymphocyte Count 1.36 k/cumm (1.2-3.4); Absolute Monocyte Count 0.33 k/cumm (0.11-0.7); Absolute Neutrophil Count 5.42 k/cumm (1.2-6.7); Basophils % 0.1; HCT 31.8 % (40.0-50.0); Immature Grans % 0.3; Lymphocytes % 18.9; Mean Corp. HGB Concentration 31.4 g/dL (32.0-36.0); Mean Corpuscular Hemoglobin 29.2 pg (27.0-33.0); Mean Platelet Volume 8.5 fL (8.0-11.0); Monocytes % 4.6; Neutrophils % 75.1; Platelet Count 310 x1000/uL (130-400); RBC 3.42 m/cumm (4.50-6.00); RBC Distribution Width 16.2 % (11.8-14.1); White Blood Cell Count 7.21 k/cumm (4.4-10.8)
[2018-02-20 03:34] LABS: ALT 26 U/L (12-78); AST 21 U/L (15-37); Albumin 3.4 g/dL (3.4-5.0); Alkaline Phosphatase 99 U/L (46-116); Anion Gap 10.7 mmol/L (3-11); BUN 26 mg/dL (7-18); Bilirubin, Total 0.4 mg/dL (0.2-1.0); CO2 27.3 mmol/L (21.0-32.0); CREATININE 1.33 mg/dL (0.70-1.30); Calcium 8.9 mg/dL (8.5-10.1); Chloride 101 mmol/L (98-107); Estimated GFR 53.47 (mL/min/1.73m2); Glucose 118 mg/dL (70-100); Potassium 4.2 mmol/L (3.5-5.1); Sodium 139 mmol/L (136-145); Total Protein 7.5 g/dL (6.4-8.2)
--- NOTE | 2018-02-20 06:36 | NUR.NOTE ---
Addendum entered by Michelle Huitron 02/20/18 06:44: we could not get the charles passed the meatus with the different sizes down to a pedi cath Original Note: Nursing Note: tried four times to get a charles in pt with no luck, tried by two different nurses
[2018-02-20] MEDS: Lidocaine 2% Jelly 11 ML SYR (06:38)
[2018-02-20 07:23] LABS: Bilirubin Negative (Negative); Blood Large (Negative); Clarity Sl Cloudy; Glucose Negative (Negative); Ketones Negative (Negative); Leukocyte Esterase Negative (Negative); Nitrite Negative (Negative); Specific Gravity 1.015 (1.005-1.025); Urobilinogen 0.2 EU/dL (Up TO 0.2)
[2018-02-20 07:31] LABS: Bacteria Few HPF (Negative); Casts Negative LPF (Negative); Epithelial Cells Rare HPF (Negative); Mucus Negative (Negative); RBC >50 (0-2); WBC 0-2 HPF (0-5)
[2018-02-20 07:32] LABS: C & S Indicated? Yes; Crystals Few Amorphous HPF (Negative)
--- NOTE | 2018-02-20 07:49 | W.PM.OP ---
Date of service: 02/20/18 Time of Service: 07:00 Operative Note DATE OF PROCEDURE: 02/20/18 PRE-OP DIAGNOSIS: Urethral stricture POST-OP DIAGNOSIS: same PROCEDURE: Urethral dilation, insert urethral catheter ANESTHESIA: none ESTIMATED BLOOD LOSS: 0 COMPLICATIONS: None Patient was transported to: no change Patient's condition: stable Indications: This is a 67 year old man who has a history of metastatic and locally aggressive prostate cancer. He is currently in the ER unable to void. The staff was unable to place a catheter due to an obstruction just within the urethral meatus. Procedure Description: I saw the patient in the ER. He was placed in the supine position. I was able to pass a guidewire through a [place] tipped catheter and advance the wire through the urethral stricture. I then dilated the urethral stricture with fascial dilators and advanced a 16 [place] tipped catheter over the wire into the bladder. The catheter balloon was inflated with 10 cc of sterile water. The catheter was hooked to gravity drainage. We will plan on removing the catheter for a voiding trial in about a week. a urine sample was sent to the lab to see if additional antibiotics might be needed.
--- NOTE | 2018-02-20 07:56 | ROE_ITS ---
Date of service: 02/20/18 Time of Service: 07:00 Operative Note DATE OF PROCEDURE: 02/20/18 PRE-OP DIAGNOSIS: Urethral stricture POST-OP DIAGNOSIS: same PROCEDURE: Urethral dilation, insert urethral catheter ANESTHESIA: none ESTIMATED BLOOD LOSS: 0 COMPLICATIONS: None Patient was transported to: no change Patient's condition: stable Indications: This is a 67 year old man who has a history of metastatic and locally aggressive prostate cancer. He is currently in the ER unable to void. The staff was unable to place a catheter due to an obstruction just within the urethral meatus. Procedure Description: I saw the patient in the ER. He was placed in the supine position. I was able to pass a guidewire through a [place] tipped catheter and advance the wire through the urethral stricture. I then dilated the urethral stricture with fascial dilators and advanced a 16 [place] tipped catheter over the wire into the bladder. The catheter balloon was inflated with 10 cc of sterile water. The catheter was hooked to gravity drainage. We will plan on removing the catheter for a voiding trial in about a week. a urine sample was sent to the lab to see if additional antibiotics might be needed.
[2018-02-20 08:00] VITALS: TEMP 36.4
== END 2018-02-20 07:43 | disposition home or self-care (01) ==
PROVIDERS: Emergency Provider Student in an Organized Health Care Education/Training Program; PCP Specialist/Technologist Athletic Trainer
DX: R33.8 Other retention of urine (principal); R31.9 Hematuria, unspecified; C61 Malignant neoplasm of prostate
CPT/HCPCS: 51703; 80053; 99284; 81003; 81015; 85025; 87086

== ENCOUNTER 2018-02-23 21:03 | Emergency (ER) | payer OTHER, SELFPAY ==
[2018-02-23 21:07] VITALS: BP 115/59; PULSE 81; RESP 18; TEMP 36.1; O2SAT 99
--- NOTE | 2018-02-23 21:22 | W.ED.GENAD ---
Discharge Plan Disposition Patient Disposition: HOME Condition: Improving Discharge Details Chief Complaint: Urinary Clinical Impression: Blocked urinary catheter Primary Care Provider: Nolberto Robert ED Provider: Cait Crandall Home Meds and New Rx's Prescriptions: Continued oxybutynin chloride 5 mg tablet 5 mg PO TID PRN (Reason: bladder spasms) Qty: 15 RF: 0 leuprolide 1 MG/0.2 ML kit 22.5 mg SQ every 3 mos RF: 0 cholecalciferol (vitamin D3) 1,000 UNITS tablet 2 tab PO DAILY RF: 0 losartan 50 MG tablet 50 mg PO QPM RF: 0 atorvastatin [Lipitor] 40 MG tablet 40 mg PO HS RF: 0 torsemide 20 MG tablet 120 mg PO DAILY RF: 0 metoprolol succinate [Toprol XL] 50 MG tablet extended release 24 hr 75 mg PO DAILY RF: 0 aspirin [Aspir-81] 81 MG tablet,delayed release (DR/EC) 81 mg PO DAILY RF: 0 No Action potassium chloride 20 mEq Tablet Extended Release 20 meq PO DAILY RF: 0 Discharge Instructions Additional Instructions: Encourage hydration. Continue with catheter care as previously advised. Please contact Dr. Prakash tomorrow to discuss plan moving forward. If you have blockage again and are unable ot clear this please return to the emergency department. Referrals: Owen Prakash MD [ [facility] STAFF PHYSICIAN] - Nolberto Robert [Primary Care Provider] - Discharge Data Discharge Date/Time-TO BE ENTERED AT DEPARTURE: 02/23/18 21:47 Medical Decision Making Patient presents with c/c of clogged urinary catheter that has been blocked approxiamtely 1 hour. Small amount of blood tinged urine is noted in leg bag/ Patient is uncomfortable with palpation over the lower abdomen, unable to palpate bladder. Bladder scan 300cc per nursing staff, however, this seems low as the patient's had pushed 240 and nursing staff had pushed 180cc in an effort to clear the catheter. Despite these efforts, catheter continues to not drain. Consulted with Dr. Prakash who advised replacing the catheter with a 16F Coude catheter. Discussed procedure with patient and his . Nursing staff and myself were able to switch the catheter without difficulty, clot was removed and blood tinged urine flowing well. After draining, 25cc remains in bladder. He is feelign much improved. Patient discharged home, is aware of catheter care and how to flush. Encouarged hydration. He will contact Dr. Prakash tomorrow to discuss continued catheter care and recurrent blockages. Advised he seek care urgently with new/worsening symptoms. All of his quesitons and concerns were addressed, he is in agreement with this plan. HPI General Mode of arrival: ambulatory. Date/Time Provider Initiated Documentation: 02/23/18 21:03. Limitations to Documentation: no limitations. Information obtained by: patient and family (accompanied by ). HPI Narrative: Patient is a 67 year old male, accompanied by , with c/c of clogged urinary catheter. Patient has been having difficulty with this clogging, has been seen multiple times over the past week. Followed by Dr. Prakash. Patient has history of prostate cancer, hematuria, cardiomyopathy, CAD. He reports that his catheter, which was placed [address] Prakash, has not been draining for the past hour. He feels uncomfortable, feels full. , who is a nurse, has attempted to flush. Has been clogging his catheter with clots, has been flushing for hte past few nights. Unable to get return despite flushing at home. No flank pain, no fevers/chills. Related Data Home Medications Medication Instructions Recorded Confirmed leuprolide 22.5 mg SQ every 3 mos kit 05/16/15 02/24/18 cholecalciferol (vitamin D3) 2 tab PO DAILY 09/01/15 02/24/18 aspirin [Aspir-81] 81 mg PO DAILY 11/03/16 02/24/18 atorvastatin [Lipitor] 40 mg PO HS 11/03/16 02/24/18 metoprolol succinate [Toprol XL] 75 mg PO DAILY 11/03/16 02/24/18 torsemide 120 mg PO DAILY 11/03/16 02/24/18 losartan 50 mg PO QPM 10/08/17 02/24/18 oxybutynin chloride 5 mg tablet 5 mg PO TID PRN #15 tab 02/21/18 02/24/18 potassium chloride 20 meq PO DAILY 02/23/18 02/24/18 Previous Rx's Medication Instructions Recorded oxybutynin chloride 5 mg tablet 5 mg PO TID PRN #15 tab 02/21/18 Allergies Allergy/AdvReac Type Severity Reaction Status Date / Time No Known Allergies Allergy Unverified 02/23/18 22:17 General Stated Complaint: Urinary HOMER: 3 Review of Systems Constitutional Reports as per HPI, Denies chills, Denies fatigue, Denies fever(s) and Denies headache(s) ENT Denies headache(s) Cardiovascular Reports as per HPI, Denies chest pain and Denies dyspnea Respiratory Denies dyspnea Gastrointestinal Reports as per HPI, Reports abdominal pain (pressure), Denies change in bowel habits, Denies nausea and Denies vomiting Genitourinary Reports as per HPI, Reports hematuria and Reports difficulty urinating (catheter in place) Musculoskeletal Reports back pain (low central back pain which he reports is typical with blockage, no flank p) Integumentary/Breasts Reports as per HPI and Denies rash Neurologic Denies headache(s) Endocrine Denies fatigue [facility] Social History Smoking/Tobacco Use Status: Never Exam Const General: cooperative, healthy appearing, comfortable, no acute distress and well developed Nutritional Appearance: average body habitus and well nourished Orientation: alert and awake HENMT Head: normal to inspection Mouth: moist mucous membranes Resp Effort & Inspection: normal respiratory effort, able to speak in complete sentences and no respiratory distress Auscultation: clear to auscultation bilaterally, no rales, no rhonchi and no wheezes Cardio Rate: regular rate Rhythm: regular rhythm Heart Sounds: S1 normal and S2 normal GI Inspection: normal to inspection and non-distended Palpation: soft and tender (low central pain over the bladder) with no rebound tenderness Auscultation: normal bowel sounds Penis: normal penis and other (catheter in place with no abnormliaty) Back/Spine/Pelvis Back: no CVA tenderness Skin General skin exam: no rashes or lesions noted Trauma: no lacerations or abrasions Neuro General: alert and awake Cognition: normal cognition Speech: speech normal Gait: normal gait Psych Appearance: grossly normal and well kempt Mental Status: mental status grossly normal Speech and Movement: speech and movement normal Course Vital Signs Temperature 36.1 C L 02/23/18 21:07 Pulse 81 02/23/18 21:07 Respiratory Rate 18 02/23/18 21:07 Blood Pressure 115/59 L 01/06/19 21:07 Pulse Oximetry 99 02/23/18 21:07 Temperature 36.1 C L 02/23/18 21:07 Temperature Source Skin 02/23/18 21:07 Pulse 81 02/23/18 21:07 Respiratory Rate 18 02/23/18 21:07 Blood Pressure 115/59 L 02/23/18 21:07 Pulse Oximetry 99 02/23/18 21:07 Oxygen Delivery Method Room Air 02/23/18 21:07 Oxygen Flow Rate 0 02/23/18 21:07 Pain Level 8 02/23/18 21:07
--- NOTE | 2018-02-23 21:27 | ED.GENADUL_ITS ---
Discharge Plan Disposition Patient Disposition: HOME Condition: Improving Discharge Details Chief Complaint: Urinary Clinical Impression: Blocked urinary catheter Primary Care Provider: Nolberto Robert ED Provider: Cait Crandall Home Meds and New Rx's Prescriptions: Continued oxybutynin chloride 5 mg tablet 5 mg PO TID PRN (Reason: bladder spasms) Qty: 15 RF: 0 leuprolide 1 MG/0.2 ML kit 22.5 mg SQ every 3 mos RF: 0 cholecalciferol (vitamin D3) 1,000 UNITS tablet 2 tab PO DAILY RF: 0 losartan 50 MG tablet 50 mg PO QPM RF: 0 atorvastatin [Lipitor] 40 MG tablet 40 mg PO HS RF: 0 torsemide 20 MG tablet 120 mg PO DAILY RF: 0 metoprolol succinate [Toprol XL] 50 MG tablet extended release 24 hr 75 mg PO DAILY RF: 0 aspirin [Aspir-81] 81 MG tablet,delayed release (DR/EC) 81 mg PO DAILY RF: 0 No Action potassium chloride 20 mEq Tablet Extended Release 20 meq PO DAILY RF: 0 Discharge Instructions Additional Instructions: Encourage hydration. Continue with catheter care as previously advised. Please contact Dr. Prakash tomorrow to discuss plan moving forward. If you have blockage again and are unable ot clear this please return to the emergency department. Referrals: Owen Prakash MD [ [facility] STAFF PHYSICIAN] - Nolberto Robert [Primary Care Provider] - Discharge Data Discharge Date/Time-TO BE ENTERED AT DEPARTURE: 02/23/18 21:47 Medical Decision Making Patient presents with c/c of clogged urinary catheter that has been blocked approxiamtely 1 hour. Small amount of blood tinged urine is noted in leg bag/ Patient is uncomfortable with palpation over the lower abdomen, unable to palpate bladder. Bladder scan 300cc per nursing staff, however, this seems low as the patient's had pushed 240 and nursing staff had pushed 180cc in an effort to clear the catheter. Despite these efforts, catheter continues to not drain. Consulted with Dr. Prkaash who advised replacing the catheter with a 16F Coude catheter. Discussed procedure with patient and his . Nursing staff and myself were able to switch the catheter without difficulty, clot was removed and blood tinged urine flowing well. After draining, 25cc remains in bladder. He is feelign much improved. Patient discharged home, is aware of catheter care and how to flush. Encouarged hydration. He will contact Dr. Prakash tomorrow to discuss continued catheter care and recurrent blockages. Advised he seek care urgently with new/worsening symptoms. All of his quesitons and concerns were addressed, he is in agreement with this plan. HPI General Mode of arrival: ambulatory . Date/Time Provider Initiated Documentation: 02/23/18 21:03 . Limitations to Documentation: no limitations . Information obtained by: patient and family (accompanied by ) . HPI Narra tive: Patient is a 67 year old male, accompanied by , with c/c of clogged urinary catheter. Patient has been having difficulty with this clogging, has been seen multiple times over the past week. Followed by Dr. Prakash. Patient has history of prostate cancer, hematuria, cardiomyopathy, CAD. He reports that his catheter, which was placed [address] Prakash, has not been draining for the past hour. He feels uncomfortable, feels full. , who is a nurse, has attempted to flush. Has been clogging his catheter with clots, has been flushing for hte past few nights. Unable to get return despite flushing at home. No flank pain, no fevers/chills. Related Data Home Medications Medication Instructions Recorded Confirmed leuprolide 22.5 mg SQ every 3 mos kit 05/16/15 02/24/18 cholecalciferol (vitamin D3) 2 tab PO DAILY 09/01/15 02/24/18 aspirin [Aspir-81] 81 mg PO DAILY 11/03/16 02/24/18 atorvastatin [Lipitor] 40 mg PO HS 11/03/16 02/24/18 metoprolol succinate [Toprol XL] 75 mg PO DAILY 11/03/16 02/24/18 torsemide 120 mg PO DAILY 11/03/16 02/24/18 losartan 50 mg PO QPM 10/08/17 02/24/18 oxybutynin chloride 5 mg tablet 5 mg PO TID PRN #15 tab 02/21/18 02/24/18 potassium chloride 20 meq PO DAILY 02/23/18 02/24/18 Previous Rx's Medication Instructions Recorded oxybutynin chloride 5 mg tablet 5 mg PO TID PRN #15 tab 02/21/18 Allergies Allergy/AdvReac Type Severity Reaction Status Date / Time No Known Allergies Allergy Unverified 02/23/18 22:17 General Stated Complaint: Urinary HOMER: 3 Review of Systems Constitutional Reports as per HPI, Denies chills, Denies fatigue, Denies fever(s) and Denies headache(s) ENT Denies headache(s) Cardiovascular Reports as per HPI, Denies chest pain and Denies dyspnea Respiratory Denies dyspnea Gastrointestinal Reports as per HPI, Reports abdominal pain (pressure), Denies change in bowel habits, Denies nausea and Denies vomiting Genitourinary Reports as per HPI, Reports hematuria and Reports difficulty urinating (catheter in place) Musculoskeletal Reports back pain (low central back pain which he reports is typical with blockage, no flank p) Integumentary/Breasts Reports as per HPI and Denies rash Neurologic Denies headache(s) Endocrine Denies fatigue [facility] Social History Smoking/Tobacco Use Status: Never Exam Const General: cooperative, healthy appearing, comfortable, no acute distress and well developed Nutritional Appearance: average body habitus and well nourished Orientation: alert and awake HENMT Head: normal to inspection Mouth: moist mucous membranes Resp Effort & Inspection: normal respiratory effort, able to speak in complete sentences and no respiratory distress Auscultation: clear to auscultation bilaterally, no rales, no rhonchi and no wheezes Cardio Rate: regular rate Rhythm: regular rhythm Heart Sounds: S1 normal and S2 normal GI Inspection: normal to inspection and non-distended Palpation: soft and tender (low central pain over the bladder) with no rebound tenderness Auscultation: normal bowel sounds Penis: normal penis and other (catheter in place with no abnormliaty) Back/Spine/Pelvis Back: no CVA tenderness Skin General skin exam: no rashes or lesions noted Trauma: no lacerations or abrasions Neuro General: alert and awake Cognition: normal cognition Speech: speech normal Gait: normal gait Psych Appearance: grossly normal and well kempt Mental Status: mental status grossly normal Speech and Movement: speech and movement normal Course Vital Signs Temperature 36.1 C L 02/23/18 21:07 Pulse 81 02/23/18 21:07 Respiratory Rate 18 02/23/18 21:07 Blood Pressure 115/59 L 02/23/18 21:07 Pulse Oximetry 99 02/23/18 21:07 Temperature 36.1 C L 02/23/18 21:07 Temperature Source Skin 02/23/18 21:07 Pulse 81 02/23/18 21:07 Respiratory Rate 18 02/23/18 21:07 Blood Pressure 115/59 L 02/23/18 21:07 Pulse Oximetry 99 02/23/18 21:07 Oxygen Delivery Method Room Air 02/23/18 21:07 Oxygen Flow Rate 0 02/23/18 21:07 Pain Level 8 02/23/18 21:07
--- NOTE | 2018-02-23 22:13 | NUR.NOTE ---
patient reports catheter is not draining, provider examined patient, bladder scan revealed greater than 306mL, irrigating charles unsuccessful, provder ordered catheter change after consulting urology, 16 guyanese caude inserted pvr 25 mL. RN will attach new leg bag to patient. Nursing Note:
[2018-02-23] MEDS: Lidocaine 2% Jelly 11 ML SYR (22:31)
== END 2018-02-23 21:47 | disposition home or self-care (01) ==
PROVIDERS: Emergency Provider Physician Assistant; PCP Specialist/Technologist Athletic Trainer
DX: T83.098A Other mechanical complication of other urinary catheter, initial encounter (principal); R31.9 Hematuria, unspecified; Z85.46 Personal history of malignant neoplasm of prostate
CPT/HCPCS: 51702; 99281

== ENCOUNTER 2018-02-24 22:12 | Emergency (ER) | payer OTHER, MEDICARE, SELFPAY ==
[2018-02-24 22:17] VITALS: BP 130/65; PULSE 78; RESP 20; TEMP 36.3; O2SAT 96
--- NOTE | 2018-02-24 22:29 | W.ED.GENAD ---
Discharge Plan Disposition Patient Disposition: HOME Condition: Improving Discharge Details Chief Complaint: Urinary Clinical Impression: Gross hematuria, Calix catheter problem Primary Care Provider: Nolberto Robert ED Provider: Cait Crandall Home Meds and New Rx's Prescriptions: Continued oxybutynin chloride 5 mg tablet 5 mg PO TID PRN (Reason: bladder spasms) Qty: 15 RF: 0 leuprolide 1 MG/0.2 ML kit 22.5 mg SQ every 3 mos RF: 0 cholecalciferol (vitamin D3) 1,000 UNITS tablet 2 tab PO DAILY RF: 0 losartan 50 MG tablet 50 mg PO QPM RF: 0 potassium chloride 20 mEq Tablet Extended Release 20 meq PO DAILY RF: 0 atorvastatin [Lipitor] 40 MG tablet 40 mg PO HS RF: 0 torsemide 20 MG tablet 120 mg PO DAILY RF: 0 metoprolol succinate [Toprol XL] 50 MG tablet extended release 24 hr 75 mg PO DAILY RF: 0 aspirin [Aspir-81] 81 MG tablet,delayed release (DR/EC) 81 mg PO DAILY RF: 0 Discharge Instructions Additional Instructions: Encourage hydration. Continue with catheter care as previously advised. If you have issues with flow, increased pain, fevers/chills or other new/worsening symptoms please seek care urgently once again. Referrals: Owen Prakash MD [ [facility] STAFF PHYSICIAN] - Nolberto Robert [Primary Care Provider] - Medical Decision Making Patient is 59-year-old male, coming by his , with chief complaint of clogged urinary catheter. He was seen by myself last night for the same complaint. At that time, catheter was changed and good flow was achieved. However, secondary to the patient's continued clot formation, this clotted off again. Patient is closely followed by urology. He did stop to see Dr. Prakash today who is scheduled the patient for cystoscopy in 3 days. At that time, it is reported that he is hoping to cauterize the area of its bleeding and possibly discuss prostate surgery. Patient has known prostate cancer. Has been having difficulty with this over the past week requiring multiple ED visits and visits with urology. Nursing staff bladder scanned the patient, 40mL noted in the bladder, blood tinged urine is now noted in the catheter bag. Patient reports that none was present prior to him coming here, appears to be flowing at this time. No intervention needed at this time. Advised they continue with plan as previously outlined by Dr. Prakash, encouraged hyhdration. Advised thye may return if this becomes blocked again. All questions and concerns were addressed, they are in agreement iwht this plan. HPI General Mode of arrival: ambulatory. Date/Time Provider Initiated Documentation: 02/24/18 22:26. Limitations to Documentation: no limitations. Information obtained by: patient and family. History of Present Illness 67 year old M presents to the emergency department with the chief complaint of clogged urinary catheter, Patient started experiencing this unknown and it has been intermittent. other things that improve symptom(s), ( has been able to flush, unsuccessful at this time.) No exacerbating factors reported . Patient notes denies cough, fever/chills and nausea/vomiting. Patient did receive the following treatments prior to arrival, other (attempted to flush) Related Data Home Medications Medication Instructions Recorded Confirmed leuprolide 22.5 mg SQ every 3 mos kit 05/16/15 02/24/18 cholecalciferol (vitamin D3) 2 tab PO DAILY 09/01/15 02/24/18 aspirin [Aspir-81] 81 mg PO DAILY 11/03/16 02/24/18 atorvastatin [Lipitor] 40 mg PO HS 11/03/16 02/24/18 metoprolol succinate [Toprol XL] 75 mg PO DAILY 11/03/16 02/24/18 torsemide 120 mg PO DAILY 11/03/16 02/24/18 losartan 50 mg PO QPM 10/08/17 02/24/18 oxybutynin chloride 5 mg tablet 5 mg PO TID PRN #15 tab 02/21/18 02/24/18 potassium chloride 20 meq PO DAILY 02/23/18 02/24/18 Previous Rx's Medication Instructions Recorded oxybutynin chloride 5 mg tablet 5 mg PO TID PRN #15 tab 02/21/18 Allergies Allergy/AdvReac Type Severity Reaction Status Date / Time No Known Allergies Allergy Unverified 02/23/18 22:17 General Stated Complaint: Urinary HOMER: 4 Review of Systems Constitutional Reports as per HPI, Denies chills, Denies fatigue, Denies fever(s) and Denies headache(s) ENT Denies headache(s) Cardiovascular Reports as per HPI, Denies chest pain and Denies dyspnea Respiratory Denies dyspnea Gastrointestinal Reports as per HPI Genitourinary Reports as per HPI, Reports hematuria and Denies flank pain Musculoskeletal Reports back pain (low central back pain, unchanged over time) Integumentary/Breasts Reports as per HPI and Denies rash Neurologic Denies headache(s) Endocrine Denies fatigue [facility] Medical History CAD (coronary artery disease) (Chronic) Cardiomyopathy (Chronic) Prostate cancer (Chronic) Surgical History S/P implantation of automatic cardioverter/defibrillator (AICD) (Inactive) S/P orchiectomy (Inactive) Social History Smoking/Tobacco Use Status: Never Exam Const General: cooperative, comfortable, no acute distress, well developed and ill appearing chronically (pale) Nutritional Appearance: average body habitus and well nourished Orientation: alert and awake HENMT Head: normal to inspection Mouth: moist mucous membranes Resp Effort & Inspection: normal respiratory effort, able to speak in complete sentences and no respiratory distress Auscultation: clear to auscultation bilaterally, no rales, no rhonchi and no wheezes Cardio Rate: regular rate Rhythm: regular rhythm Heart Sounds: S1 normal and S2 normal GI Inspection: normal to inspection Palpation: soft, no guarding and nontender Back/Spine/Pelvis Back: no CVA tenderness Skin General skin exam: no rashes or lesions noted Trauma: no lacerations or abrasions Neuro General: alert and awake Cognition: normal cognition Speech: speech normal Gait: normal gait Psych Appearance: grossly normal and well kempt Mental Status: mental status grossly normal Speech and Movement: speech and movement normal Course Vital Signs Temperature 36.3 C L 02/24/18 22:17 Pulse 78 02/24/18 22:17 Respiratory Rate 20 02/24/18 22:17 Blood Pressure 130/65 02/24/18 22:17 Pulse Oximetry 96 02/24/18 22:17 Temperature 36.3 C L 02/24/18 22:17 Temperature Source Skin 02/24/18 22:17 Pulse 78 02/24/18 22:17 Respiratory Rate 20 02/24/18 22:17 Respiratory Effort Non-Labored 02/24/18 22:18 Blood Pressure 130/65 02/24/18 22:17 Blood Pressure Position Sitting 02/24/18 22:17 Pulse Oximetry 96 02/24/18 22:17 Oxygen Delivery Method Room Air 02/24/18 22:17 Oxygen Flow Rate 0 02/24/18 22:17
--- NOTE | 2018-02-24 22:33 | ED.GENADUL_ITS ---
Discharge Plan Disposition Patient Disposition: HOME Condition: Improving Discharge Details Chief Complaint: Urinary Clinical Impression: Gross hematuria, Calix catheter problem Primary Care Provider: Nolberto Robert ED Provider: Cait Crandall Home Meds and New Rx's Prescriptions: Continued oxybutynin chloride 5 mg tablet 5 mg PO TID PRN (Reason: bladder spasms) Qty: 15 RF: 0 leuprolide 1 MG/0.2 ML kit 22.5 mg SQ every 3 mos RF: 0 cholecalciferol (vitamin D3) 1,000 UNITS tablet 2 tab PO DAILY RF: 0 losartan 50 MG tablet 50 mg PO QPM RF: 0 potassium chloride 20 mEq Tablet Extended Release 20 meq PO DAILY RF: 0 atorvastatin [Lipitor] 40 MG tablet 40 mg PO HS RF: 0 torsemide 20 MG tablet 120 mg PO DAILY RF: 0 metoprolol succinate [Toprol XL] 50 MG tablet extended release 24 hr 75 mg PO DAILY RF: 0 aspirin [Aspir-81] 81 MG tablet,delayed release (DR/EC) 81 mg PO DAILY RF: 0 Discharge Instructions Additional Instructions: Encourage hydration. Continue with catheter care as previously advised. If you have issues with flow, increased pain, fevers/chills or other new/worsening symptoms please seek care urgently once again. Referrals: Owen Prakash MD [ [facility] STAFF PHYSICIAN] - Nolberto Robert [Primary Care Provider] - Medical Decision Making Patient is 59-year-old male, coming by his , with chief complaint of clogged urinary catheter. He was seen by myself last night for the same complaint. At that time, catheter was changed and good flow was achieved. However, secondary to the patient's continued clot formation, this clotted off again. Patient is closely followed by urology. He did stop to see Dr. Prakash today who is scheduled the patient for cystoscopy in 3 days. At that time, it is reported that he is hoping to cauterize the area of its bleeding and possibly discuss prostate surgery. Patient has known prostate cancer. Has been having difficulty with this over the past week requiring multiple ED visits and visits with urology. Nursing staff bladder scanned the patient, 40mL noted in the bladder, blood tinged urine is now noted in the catheter bag. Patient reports that none was present prior to him coming here, appears to be flowing at this time. No intervention needed at this time. Advised they continue with plan as previously outlined by Dr. Prakash, encouraged hyhdration. Advised thye may return if this becomes blocked again. All questions and concerns were addressed, they are in agreement iwht this plan. HPI General Mode of arrival: ambulatory . Date/Time Provider Initiated Documentation: 02/24/18 22:26 . Limitations to Documentation: no limitations . Information obtained by: patient and family . History of Present Illness 67 year old M presents to the emergency department with the chief complaint of clogged urinary catheter, Patient started experiencing this unknown and it has been intermittent. other things that improve symptom(s), ( has been able to flush, unsuccessful at this time.) No exacerbating factors reported . Patient notes denies cough, fever/chills and nausea/vomiting. Patient did receive the following treatments prior to arrival, other (attempted to flush) Related Data Home Medications Medication Instructions Recorded Confirmed leuprolide 22.5 mg SQ every 3 mos kit 05/16/15 02/24/18 cholecalciferol (vitamin D3) 2 tab PO DAILY 09/01/15 02/24/18 aspirin [Aspir-81] 81 mg PO DAILY 11/03/16 02/24/18 atorvastatin [Lipitor] 40 mg PO HS 11/03/16 02/24/18 metoprolol succinate [Toprol XL] 75 mg PO DAILY 11/03/16 02/24/18 torsemide 120 mg PO DAILY 11/03/16 02/24/18 losartan 50 mg PO QPM 10/08/17 02/24/18 oxybutynin chloride 5 mg tablet 5 mg PO TID PRN #15 tab 02/21/18 02/24/18 potassium chloride 20 meq PO DAILY 02/23/18 02/24/18 Previous Rx's Medication Instructions Recorded oxybutynin chloride 5 mg tablet 5 mg PO TID PRN #15 tab 02/21/18 Allergies Allergy/AdvReac Type Severity Reaction Status Date / Time No Known Allergies Allergy Unverified 02/23/18 22:17 General Stated Complaint: Urinary HOMER: 4 Review of Systems Constitutional Reports as per HPI, Denies chills, Denies fatigue, Denies fever(s) and Denies headache(s) ENT Denies headache(s) Cardiovascular Reports as per HPI, Denies chest pain and Denies dyspnea Respiratory Denies dyspnea Gastrointestinal Reports as per HPI Genitourinary Reports as per HPI, Reports hematuria and Denies flank pain Musculoskeletal Reports back pain (low central back pain, unchanged over time) Integumentary/Breasts Reports as per HPI and Denies rash Neurologic Denies headache(s) Endocrine Denies fatigue FOR[facility] Medical History CAD (coronary artery disease) (Chronic) Cardiomyopathy (Chronic) Prostate cancer (Chronic) Surgical History S/P implantation of automatic cardioverter/defibrillator (AICD) (Inactive) S/P orchiectomy (Inactive) Social History Smoking/Tobacco Use Status: Never Exam Const General: cooperative, comfortable, no acute distress, well developed and ill appearing chronically (pale) Nutritional Appearance: average body habitus and well nourished Orientation: alert and awake HENMT Head: normal to inspection Mouth: moist mucous membranes Resp Effort & Inspection: normal respiratory effort, able to speak in complete sentences and no respiratory distress Auscultation: clear to auscultation bilaterally, no rales, no rhonchi and no wheezes Cardio Rate: regular rate Rhythm: regular rhythm Heart Sounds: S1 normal and S2 normal GI Inspection: normal to inspection Palpation: soft, no guarding and nontender Back/Spine/Pelvis Back: no CVA tenderness Skin General skin exam: no rashes or lesions noted Trauma: no lacerations or abrasions Neuro General: alert and awake Cognition: normal cognition Speech: speech normal Gait: normal gait Psych Appearance: grossly normal and well kempt Mental Status: mental status grossly normal Speech and Movement: speech and movement normal Course Vital Signs Temperature 36.3 C L 02/24/18 22:17 Pulse 78 02/24/18 22:17 Respiratory Rate 20 02/24/18 22:17 Blood Pressure 130/65 02/24/18 22:17 Pulse Oximetry 96 02/24/18 22:17 Temperature 36.3 C L 02/24/18 22:17 Temperature Source Skin 02/24/18 22:17 Pulse 78 02/24/18 22:17 Respiratory Rate 20 02/24/18 22:17 Respiratory Effort Non-Labored 02/24/18 22:18 Blood Pressure 130/65 02/24/18 22:17 Blood Pressure Position Sitting 02/24/18 22:17 Pulse Oximetry 96 02/24/18 22:17 Oxygen Delivery Method Room Air 02/24/18 22:17 Oxygen Flow Rate 0 02/24/18 22:17
== END 2018-02-24 22:49 | disposition home or self-care (01) ==
PROVIDERS: Emergency Provider Physician Assistant; PCP Specialist/Technologist Athletic Trainer
DX: R31.0 Gross hematuria (principal); T83.098A Other mechanical complication of other urinary catheter, initial encounter; C61 Malignant neoplasm of prostate
CPT/HCPCS: 99281

== ENCOUNTER 2018-02-27 14:31 | Observation (INO) | payer OTHER, SELFPAY ==
[2018-02-27 12:33] VITALS: BP 110/67; PULSE 84; RESP 18; TEMP 36.2; O2SAT 100
[2018-02-27] MEDS: Lactated Ringers 1,000 ML 80 ML IV ×2 (12:59→16:28)
[2018-02-27] MEDS: Lidocaine 2% Jelly 6 ML SYR (14:15)
[2018-02-27 15:25] VITALS: BP 106/52; PULSE 82; RESP 18; TEMP 36.2; O2SAT 90
--- NOTE | 2018-02-27 15:46 | NUR.NOTE ---
1525-Pt arrived to med/surg room 217 via stretcher. Pt arrived fully alert and oriented x3. Pt transferred from the stretcher to his bed by stand and pivoting. Vital signs stable (see vitals). Continues bladder irrigation in progress. Urine in Calix catheter is clear pale pink. Respirations even and regular. No edema. Lung sounds are clear throughout with good aeration. Palpable AICD left chest wall. Distant heart sounds. Tolerating water. No nausea. Penile (towards tip) discomfort but manageable.
[2018-02-27 16:02] VITALS: BP 117/54; PULSE 60; RESP 18; TEMP 35.9; O2SAT 100
[2018-02-27 17:00] VITALS: BP 102/60; PULSE 60; RESP 18; TEMP 36; O2SAT 95
--- NOTE | 2018-02-27 18:39 | ROE_ITS ---
DATE OF OPERATION: February 27, 2018 PREOPERATIVE DIAGNOSIS: Gross hematuria with clot retention. POSTOPERATIVE DIAGNOSIS: Gross hematuria with clot retention. PROCEDURE: Cystoscopy, fulguration of prostatic tissue. SURGEON: Owen Prakash M.D. ANESTHESIA: MAC with local. COMPLICATIONS: None. HISTORY: This is a 67-year-old gentleman who has a history of castrate-resistant, locally aggressive , and metastatic prostate cancer. He is currently on androgen deprivation alone. His PSA is rising but given his cardiac and other health status he is not felt to be a candidate for chemotherapy. He has had several recent encounters with gross hematuria and clot. We had arranged a CT scan which showed new onset of left hydronephrosis from progression of his localized prostate cancer. He presen ts now for cystoscopy with clot evacuation and fulguration of any suspicious bleeding point. OPERATIVE REPORT: The patient was brought to the Operating Room on 02/27/18. He was given monitored anesthesia care and placed in the dorsal lithotomy position. His indwelling urethral catheter was re moved. A 22 [place] rigid cystoscope was then passed through the urethra into the bladder. The urethra and b ladder were inspected with a 30-degree lens. The pendulous urethra showed an area of narrowing that had required dilation previously. This area s eemed well open at this point in time. The remainder of the pendulous urethra appeared normal. The prostatic urethra showed irregular tissue with very prominent blood vessels. Up toward the 2 o'clock position there did appear to be some adherent clot. I then entered the bladder neck and the bladder mucosa was inspected. No retained clots were identif ied but some of the prostatic tissue did appear to be impinging on the bladder lumen. We then removed the cystoscope and placed a 24 [place] resectoscope sheath. I used a cauterizing butt on to vaporize any of the prominent blood vessels that I saw as well as the mucosa under the area wit h adherent clot. At the completion of the procedure no active bleeding was seen. We removed the resectoscope and plac ed a 22 [place] hematuria catheter. The catheter balloon was inflated with 30 cc of sterile water. C ontinuous bladder irrigation with saline was begun. We will plan on running bladder irrigation overn ight to make sure there are no clots that form. As long as the urine remains clear, we will plan on removing the irrigation and catheter tomorrow morning. cc: YULIYA Peñaloza M.D.
[2018-02-27 19:08] VITALS: BP 118/54; PULSE 63; RESP 18; TEMP 36.2; O2SAT 95
[2018-02-27] MEDS: Losartan 50 MG TAB PO (20:45)
[2018-02-27] MEDS: Atorvastatin 40 MG TAB PO (22:36)
[2018-02-28 02:05] VITALS: BP 104/58; PULSE 67; RESP 16; TEMP 37.1; O2SAT 98
[2018-02-28 04:50] VITALS: BP 97/47; PULSE 64; RESP 18; TEMP 36.8; O2SAT 96
[2018-02-28 07:30] VITALS: BP 105/50; PULSE 64; RESP 16; TEMP 36.2; O2SAT 99
--- NOTE | 2018-02-28 07:42 | W.PM.PROGNOT ---
Date of Service Date of service: 02/28/18 Time of Service: 07:42 Assessment and Plan (1) Gross hematuria: Current visit: No Status: Acute He is doing quite well. We will discontinue his CBI and see what the urine psych by itself. If the urine remains clear, we will remove the catheter. We can then discharge him if he is voiding. If the urine is pink tinged, we should probably send him home with his catheter. He would then come to our office early in the week to have a catheter removed. Subjective Interval history since last seen: Chief complaint: Postoperative day #1 He had a comfortable night. He had no spasms or episodes of clot retention. He is tolerating p.o. fluids Exam Narrative Exam Narrative: He looks reasonably comfortable. His vital signs are documented elsewhere. H his bladder outflow is clear with CBI. Objective Objective Clinical Data: Vital Signs Temperature 37.1 C 02/28/18 02:05 Temperature Source Tympanic 02/28/18 02:05 Pulse 67 02/28/18 02:05 Pulse Rhythm Regular 02/27/18 15:10 Respiratory Rate 16 02/28/18 02:05 Respiratory Effort Non-Labored 02/27/18 15:10 Respiratory Depth Normal 02/27/18 15:10 Respiratory Pattern Normal 02/27/18 15:10 Blood Pressure 104/58 L 02/28/18 02:05 Pulse Oximetry 98 02/28/18 02:05 Oxygen Delivery Method Room Air 02/28/18 02:05 Oxygen Flow Rate 0 02/28/18 02:05 Pain Level 0 02/28/18 02:05 Comment 02/27/18 16:02 Intake & Output 02/27/18 02/27/18 02/28/18 11:59 23:59 11:59 Intake Total 496.667 / 496.667 240 / 240 Output Total 8250 / 8250 Balance -7753.333 / -7753.333 240 / 240 Weight 87.7 kg Intake: IV 496.667 / 496.667 Oral 240 / 240 Output: Urine 8250 / 8250 Other: Urine Color Pale Urine Appearance Clear Urine Odor None Comment [address] charles
[2018-02-28] MEDS: Calcium Carbonate 1.25 GM TAB 0.5 GM PO (08:42)
[2018-02-28] MEDS: Aspirin E.C. 81 MG TABEC PO (08:42)
[2018-02-28] MEDS: Potassium Chloride 10 MEQ TABCR 20 MEQ PO (08:43)
[2018-02-28] MEDS: TORSEMIDE 120 MG PO (08:43)
[2018-02-28] MEDS: Metoprolol CR 50 MG TABCR 75 MG PO (08:44)
[2018-02-28] MEDS: Normal Saline Flush 10 ML SYR IV (08:48)
--- NOTE | 2018-02-28 09:10 | W.PM.DS.N ---
Date of service: 02/28/18 Time of Service: 09:10 DS: Diagnosis Discharge Diagnosis (1) Gross hematuria: Status: Acute Discharge Plan Disposition Patient Disposition: HOME Condition: Stable Discharge Details Reason For Visit: CLOT RETENTION Admit Date/Time: 02/27/18 14:31 Admit Provider: Owen Prakash Attending Provider: Owen Prakash Primary Care Provider: Nolberto Robert Hospital Course Hospital Course: The patient was admitted for a planned cystoscopy, clot evacuation and fulguration of bleeders. Cystoscopically, the bleeding appeared to be from locally invasive prostate cancer. We hospitalized him over night with CBI. His irrigation wa clear, but he had some pink tinge to the urine after the CBI was stopped. Home Meds and New Rx's Prescriptions: No Action oxybutynin chloride 5 mg tablet 5 mg PO TID PRN (Reason: bladder spasms) Qty: 15 RF: 0 leuprolide 1 MG/0.2 ML kit 22.5 mg SQ every 3 mos RF: 0 cholecalciferol (vitamin D3) 1,000 UNITS tablet 2 tab PO DAILY RF: 0 losartan 50 MG tablet 50 mg PO QPM RF: 0 potassium chloride 20 mEq Tablet Extended Release 20 meq PO DAILY RF: 0 calcium carbonate [Calcium 500] 500 mg calcium (1,250 mg) Tablet 500 mg PO DAILY RF: 0 atorvastatin [Lipitor] 40 MG tablet 40 mg PO HS RF: 0 torsemide 20 MG tablet 120 mg PO DAILY RF: 0 metoprolol succinate [Toprol XL] 50 MG tablet extended release 24 hr 75 mg PO DAILY RF: 0 aspirin [Aspir-81] 81 MG tablet,delayed release (DR/EC) 81 mg PO DAILY RF: 0 Discharge Instructions Additional Instructions: F/U Saturday for catheter removal Stand Alone Forms: Nursing Discharge Form Referrals: Marianela Farris NP [NURSE PRACTITIONER] - 03/03/18 9:00 am (Cath Removal) Activity:: Activity as Tolerated Equipment/Supplies:: charles to leg bag Diet:: As Tolerated Discharge Orders Discharge Orders: Discharge Order (Routine); Ordered 02/28/18 Ordered By: Owen Prakash Exam Const General: cooperative, comfortable and frail appearing Chest Chest: normal inspection of the chest GI Palpation: soft and no masses Other: charles with light pink urine Neuro General: alert, awake and oriented x3 DS: Data Vitals/I&O Vitals and I&O: Vital Signs Temperature 36.2 C L 02/28/18 07:30 Temperature Source Tympanic 02/28/18 07:30 Pulse 64 02/28/18 07:30 Pulse Rhythm Regular 02/28/18 02:10 Respiratory Rate 16 02/28/18 07:30 Respiratory Effort Non-Labored 02/28/18 02:10 Respiratory Depth Normal 02/28/18 02:10 Respiratory Pattern Normal 02/28/18 02:10 Blood Pressure 105/50 L 02/28/18 07:30 Pulse Oximetry 99 02/28/18 07:30 Oxygen Delivery Method Room Air 02/28/18 07:30 Oxygen Flow Rate 0 02/28/18 07:30 Pain Level 0 02/28/18 04:50 Comment 02/27/18 16:02 Intake & Output 02/27/18 02/27/18 02/28/18 11:59 23:59 11:59 Intake Total 496.667 / 496.667 600 / 600 Output Total 8250 / 8250 Balance -7753.333 / -7753.333 600 / 600 Weight 87.7 kg Intake: IV 496.667 / 496.667 Oral 600 / 600 Output: Urine 8250 / 8250 Other: Urine Color Pale Pale Urine Appearance Clear Clear Urine Odor None Comment [address] charles clear with slight tint of pink PFSH Medical History CAD (coronary artery disease) (Chronic) Cardiomyopathy (Chronic) Prostate cancer (Chronic) Surgical History S/P implantation of automatic cardioverter/defibrillator (AICD) (Inactive) S/P orchiectomy (Inactive) Social History Smoking/Tobacco Use Status: Never
--- NOTE | 2018-02-28 09:52 | PDOC.CMIN ---
- If Service Date Differs Date of service: 02/28/18 Time of Service: 09:52 Care Management Initial Assess REASON FOR HOSPITALIZATION:: Clot retention. PAST MEDICAL HISTORY/PAST SURGICAL HISTORY:: CHF, CAD, colon polyp, diabetes, cardiomyopathy, prostate cancer. Surgical hx: AICD, orchiectomy, vasectomy, colonoscopy. PREVIOUS FUNCTIONAL STATUS/SOCIAL/FAMILY SUPPORTS:: Per CM initial assessment (10/08), Josiah resides with his Malu in [place], [place]. The couple report a good support network of family and friends. Josiah reports he worked at [employer] for years prior to senior living, and reports enjoying his senior living. He also shares his cancer diagnosis came about in 2008 and had already metastasized at that time. He has hormonal treatments every three monthes at [facility]. ADVANCE DIRECTIVES:: On file at [facility]. Health Care Agent: Malu Gongora. Has patient been provided with information about the portal?: Yes Did the patient sign up for the portal?: Yes CODE STATUS:: DNR/DNI INSURANCE COVERAGE / FINANCIAL ISSUES:: Medicare, [employer]. PRIMARY CARE PHYSICIAN:: Nolberto Robert. POTENTIAL DISCHARGE NEEDS:: Follow up appointment with urology for catheter removal (03/03) and PCP. PATIENT/FAMILY EDUCATION NEEDS:: Discharge education, any limitations, and follow up plan of care. Ask Me Three discussion. ANTICIPATED BARRIERS TO DISCHARGE:: No anticipated barriers to discharge. TRANSPORTATION:: Josiah will transport via private vehicle with his , Malu. PLAN:: Josiah will discharge when medically ready per MD. Anticipate patient will discharge with follow up appointments and no home health services. CM will continue to offer support to patient, family, and care team regarding discharge planning and disposition.
--- NOTE | 2018-02-28 10:00 | INITIAL_ITS ---
- If Service Date Differs Date of service: 02/28/18 Time of Service: 09:52 Care Management Initial Assess REASON FOR HOSPITALIZATION:: Clot retention. PAST MEDICAL HISTORY/PAST SURGICAL HISTORY:: CHF, CAD, colon polyp, diabetes, cardiomyopathy, prostate cancer. Surgical hx: AICD, orchiectomy, vasectomy, colonoscopy. PREVIOUS FUNCTIONAL STATUS/SOCIAL/FAMILY SUPPORTS:: Per CM initial assessment (10/08), Josiah resides with his Malu in [place], [place]. The couple report a good support network of family and friends. Josiah reports he worked at [employer] for years prior to [facility], and reports enjoying his [facility]. He also shares his cancer diagnosis came about in 2008 and had already metastasized at that time. He has hormonal treatments every three monthes at [facility]. ADVANCE DIRECTIVES:: On file at [facility]. Health Care Agent: Malu Gongora. Has patient been provided with information about the portal?: Yes Did the patient sign up for the portal?: Yes CODE STATUS:: DNR/DNI INSURANCE COVERAGE / FINANCIAL ISSUES:: Medicare, [employer]. PRIMARY CARE PHYSICIAN:: Nolberto Robert. POTENTIAL DISCHARGE NEEDS:: Follow up appointment with urology for catheter removal (03/03) and PCP. PATIENT/FAMILY EDUCATION NEEDS:: Discharge education, any limitations, and follow up plan of care. Ask Me Three discussion. ANTICIPATED BARRIERS TO DISCHARGE:: No anticipated barriers to discharge. TRANSPORTATION:: Josiah will transport via private vehicle with his , Malu. PLAN:: Josiah will discharge when medically ready per MD. Anticipate patient will discharge with follow up appointments and no home health services. CM will continue to offer support to patient, family, and care team regarding discharge planning and disposition.
--- NOTE | 2018-02-28 10:00 | PDOC.CMDIS ---
- If Service Date Differs Date of service: 02/28/18 Time of Service: 10:00 LACE Index Scoring Tool - Questions: Length of Stay (in days): 2 Acuity (Admit via E.D.?): Yes Comorbidities: Diabetes w/o Complication, Congestive Heart Failure, Any Tumor, Metastatic Solid Tumor E.D. Visits: 5 - Answers: Total Score: 14 Risk of Readmission: High Risk Care Management Discharge Reason for Hospitalization: Clot retention. Discharge Plan: Josiah will discharge home when medically ready per MD. Anticipate patient will discharge with no services and follow up with urology and his PCP. Josiah will transport via private vehicle with his , Malu. Patient/Family Education Needs: Discharge education, any limitation, and follow up plan of care. Ask Me Three discussion.
== END 2018-02-28 10:40 | disposition home or self-care (01) ==
LOC: SURG 15:34 → MS 15:39
PROVIDERS: Admitting Provider Urology; PCP Specialist/Technologist Athletic Trainer; Visit Provider Urology
PROC: 0TJB8ZZ Inspection of Bladder, Via Natural or Artificial Opening Endoscopic (ICD-10-PCS; CPT 52000; principal; 2018-02-27 14:00)
DX: R31.0 Gross hematuria (principal); N32.89 Other specified disorders of bladder; R97.21 Rising PSA following treatment for malignant neoplasm of prostate; C61 Malignant neoplasm of prostate; C79.9 Secondary malignant neoplasm of unspecified site
CPT/HCPCS: 52224; 99238; J3490; NC; G0378; J0690; J2250; J3010

== ENCOUNTER 2018-03-17 06:47 | Outpatient (CLI) | payer OTHER, SELFPAY ==
[2018-03-17 09:39] LABS: Anion Gap 10.3 mmol/L (3-11); BUN 30 mg/dL (7-18); CO2 27.7 mmol/L (21.0-32.0); CREATININE 1.25 mg/dL (0.70-1.30); Calcium 8.9 mg/dL (8.5-10.1); Chloride 102 mmol/L (98-107); Estimated GFR 57.44 (mL/min/1.73m2); Glucose 108 mg/dL (70-100); NT-proBNP 490 pg/mL; Potassium 4.1 mmol/L (3.5-5.1); Sodium 140 mmol/L (136-145)
== END 2018-03-17 07:07 ==
PROVIDERS: PCP Specialist/Technologist Athletic Trainer; Visit Provider Nurse Practitioner
DX: R06.02 Shortness of breath (principal); I25.5 Ischemic cardiomyopathy
CPT/HCPCS: 36415; 80048; 83880

== ENCOUNTER 2018-04-07 06:49 | Outpatient (CLI) | payer OTHER, SELFPAY ==
[2018-04-07 07:24] LABS: Abs Immature Grans 0.01 k/cumm (0.0-0.09); Absolute Basophil Count 0.01 k/cumm (0.0-0.2); Absolute Lymphocyte Count 1.74 k/cumm (1.2-3.4); Absolute Monocyte Count 0.54 k/cumm (0.11-0.7); Absolute Neutrophil Count 3.88 k/cumm (1.2-6.7); Basophils % 0.2; Eosinophils % 1.6; HCT 32.4 % (40.0-50.0); Immature Grans % 0.2; Lymphocytes % 27.7; Mean Corp. HGB Concentration 30.9 g/dL (32.0-36.0); Mean Corpuscular Hemoglobin 29.1 pg (27.0-33.0); Mean Corpuscular Volume 94.2 fL (80-95); Mean Platelet Volume 8.7 fL (8.0-11.0); Monocytes % 8.6; Neutrophils % 61.7; Platelet Count 213 x1000/uL (130-400); RBC 3.44 m/cumm (4.50-6.00); RBC Distribution Width 16.8 % (11.8-14.1); White Blood Cell Count 6.28 k/cumm (4.4-10.8)
[2018-04-07 07:35] LABS: ALT 17 U/L (12-78); AST 24 U/L (15-37); Albumin 3.5 g/dL (3.4-5.0); Alkaline Phosphatase 103 U/L (46-116); Anion Gap 10.3 mmol/L (3-11); BUN 29 mg/dL (7-18); Bilirubin, Total 0.7 mg/dL (0.2-1.0); CO2 28.7 mmol/L (21.0-32.0); CREATININE 1.37 mg/dL (0.70-1.30); Chloride 100 mmol/L (98-107); Estimated GFR 51.67 (mL/min/1.73m2); Glucose 106 mg/dL (70-100); Potassium 4.1 mmol/L (3.5-5.1); Sodium 139 mmol/L (136-145); Total Protein 7.8 g/dL (6.4-8.2)
[2018-04-08 11:00] LABS: PSA, Diagnostic 209.7 ng/ml (0-4.5)
[2018-04-09 13:41] LABS: Testosterone, Total <7.0 ng/dL (240-950)
== END 2018-04-07 07:09 ==
PROVIDERS: PCP Specialist/Technologist Athletic Trainer; Visit Provider Internal Medicine
DX: C61 Malignant neoplasm of prostate (principal)
CPT/HCPCS: 36415; 80053; 84403; 84153; 85025

== ENCOUNTER 2018-04-29 07:06 | Outpatient (CLI) | payer OTHER, SELFPAY ==
[2018-04-29 07:49] LABS: Abs Immature Grans 0.02 k/cumm (0.0-0.09); Absolute Basophil Count 0.01 k/cumm (0.0-0.2); Absolute Eosinophil Count 0.08 k/cumm (0.0-0.7); Absolute Lymphocyte Count 1.52 k/cumm (1.2-3.4); Absolute Monocyte Count 0.42 k/cumm (0.11-0.7); Absolute Neutrophil Count 3.78 k/cumm (1.2-6.7); Basophils % 0.2; Eosinophils % 1.4; HCT 32.6 % (40.0-50.0); HGB 10.2 g/dL (13.5-17.5); Immature Grans % 0.3; Lymphocytes % 26.1; Mean Corp. HGB Concentration 31.3 g/dL (32.0-36.0); Mean Corpuscular Hemoglobin 28.9 pg (27.0-33.0); Mean Corpuscular Volume 92.4 fL (80-95); Mean Platelet Volume 8.7 fL (8.0-11.0); Monocytes % 7.2; Neutrophils % 64.8; Platelet Count 224 x1000/uL (130-400); RBC 3.53 m/cumm (4.50-6.00); RBC Distribution Width 16.1 % (11.8-14.1); White Blood Cell Count 5.83 k/cumm (4.4-10.8)
[2018-04-29 08:09] LABS: ALT 18 U/L (12-78); AST 33 U/L (15-37); Albumin 3.5 g/dL (3.4-5.0); Alkaline Phosphatase 111 U/L (46-116); Anion Gap 11.5 mmol/L (3-11); BUN 31 mg/dL (7-18); Bilirubin, Total 0.4 mg/dL (0.2-1.0); CO2 26.5 mmol/L (21.0-32.0); CREATININE 1.36 mg/dL (0.70-1.30); Calcium 8.7 mg/dL (8.5-10.1); Chloride 99 mmol/L (98-107); Estimated GFR 52.11 (mL/min/1.73m2); Glucose 109 mg/dL (70-100); Potassium 3.6 mmol/L (3.5-5.1); Sodium 137 mmol/L (136-145); Total Protein 7.8 g/dL (6.4-8.2)
[2018-04-29 09:51] LABS: NT-proBNP 377 pg/mL
[2018-04-30 09:40] LABS: PSA, Diagnostic 189.8 ng/ml (0-4.5)
== END 2018-04-29 07:26 ==
PROVIDERS: Nurse Practitioner; PCP Specialist/Technologist Athletic Trainer; Visit Provider Internal Medicine
DX: C61 Malignant neoplasm of prostate (principal); I25.5 Ischemic cardiomyopathy; I50.20 Unspecified systolic (congestive) heart failure
CPT/HCPCS: 36415; 80053; 83880; 84153; 85025

== ENCOUNTER 2018-05-09 00:52 | Outpatient (CLI) | payer OTHER, SELFPAY ==
--- NOTE | 2018-05-09 10:30 | DI.NM_ITS ---
SYMPTOMS/DIAGNOSIS: RESTAGING OF METASTATIC PROSTATE CA, C61, C79.51 WHOLE BODY BONE SCAN: The patient received 24.5 mCi of technetium 99m MDP and whole body imaging was performed. Comparison is 04/19/16. Since the prior examination, there have developed multiple areas of radiotracer uptake. There is increased tracer uptake seen in the manubrium, the sternum, the left mid humerus, the right 8th rib posteriorly, the left 8th rib laterally. Several areas in the cervical, thoracic and lumbar spine are also noted. There is also increased radiotracer uptake involving the right femur. Increased radiotracer uptake is seen in the mid left clavicle. There is activity seen in the kidneys and urinary bladder. There is prominence of the left renal pelvis consistent with obstruction. CT scan from the same day shows that the pancreatic mass appears to be obstructing the left renal collecting system causing hydronephrosis. IMPRESSION: Findings consistent with metastatic disease involving the axial and appendicular skeleton.
[2018-05-09] MEDS: Omnipaque 350 MG/ML 50 ML BTL IJ (10:43)
[2018-05-09] MEDS: Breeza Beverage 473 ML BTL PO ×2 (10:44→10:45)
--- NOTE | 2018-05-09 11:30 | DI.CT_ITS ---
SYMPTOMS/DIAGNOSIS: RESTAGING OF METASTATIC PROSTATE CA, C61, C79.51 CT SCAN OF THE CHEST, ABDOMEN AND PELVIS: CT scan of the chest, abdomen and pelvis was performed following the uneventful administration of intravenous and oral contrast material. Comparison examinations are 02/14/18 and 07/02/16. CT SCAN OF THE ABDOMEN AND PELVIS: The liver is normal in size. No evidence of a hepatic mass is seen. The portal and superior mesenteric veins are patient as is the splenic vein. The gallbladder is negative. There is no biliary ductal dilatation. The pancreas, spleen and adrenal glands are unremarkable. The right kidney shows normal enhancement. No evidence of obstruction is identified. The prostate is enlarged and invades the urinary bladder. It measures 6.2 cm AP x 4.6 cm craniocaudad. Using similar techniques, on the prior examination it measures 6.8 cm AP x 5.6 cm transverse. There is again seen obstruction of the left renal collecting system which is dilated and there is delayed enhancement of the left kidney. There does not appear to be involvement of the adjacent rectum and colon by the mass. There is diffuse thickening of the wall of the urinary bladder likely chronic and related to obstructive changes. Post therapeutic cystitis can not be entirely excluded. The abdominal aorta is of normal caliber. No aneurysmal dilatation is seen. There are again seen enlarged retroperitoneal and bilateral iliac and inguinal adenopathy. The largest lymph node in the right iliac chain measures 3.6 x 1.8 cm which is unchanged. The largest lymph node in the left iliac chain measures 2.8 x 1.5 cm compared to 2.7 x 1.5 cm. There does appear to be slight decrease in size of the left periaortic adenopathy compared to the prior examination. No new abdominal or pelvic adenopathy is appreciated. The bowel shows no evidence of obstruction or inflammation. No findings of an acute appendicitis are present. No significant abdominal or pelvic ascites or pneumoperitoneum is present. Osseous sclerotic metastases are again identified. IMPRESSION: 1. Findings of an enlarged prostate gland consistent with prostatic carcinoma again shown to cause obstruction of the left renal collecting system. 2. Abdominal and pelvic adenopathy. Slight interval decrease in size of the left para-aortic lymph nodes. 3. Skeletal metastatic disease. Increase in size of the sclerotic focus in the L 5 vertebral body compared to 02/14/18. CT SCAN OF THE CHEST: The thoracic aorta is of normal caliber. No aneurysm or dissection is appreciated. The heart size is at the upper limits of normal. No significant pericardial effusion is seen. Pacing wires are present. No significant thoracic adenopathy, pleural effusion or pneumothorax is identified. The lungs are clear. No nodules are seen. No infiltrates are present. The tracheobronchial tree is unremarkable. Since the prior examination of the chest from 07/02/16, there have developed multiple sclerotic foci seen in the thoracic spine and sclerosis of the manubrium consistent with progressive osseous metastatic disease. There also appears to be sclerosis of the C 6 vertebral body consistent with metastatic disease. IMPRESSION: Progressive osseous metastatic disease in the chest.
[2018-05-09] MEDS: Omnipaque 350 MG/ML 100 ML BTL IJ (11:33)
== END 2018-05-09 01:12 ==
PROVIDERS: PCP Specialist/Technologist Athletic Trainer; Visit Provider Internal Medicine
DX: C61 Malignant neoplasm of prostate (principal); C79.51 Secondary malignant neoplasm of bone; K86.89 Other specified diseases of pancreas; N13.30 Unspecified hydronephrosis; N32.9 Bladder disorder, unspecified; R59.0 Localized enlarged lymph nodes
CPT/HCPCS: 74177; 78306; 71260; J3490; Q9967

== ENCOUNTER 2018-06-16 07:02 | Outpatient (CLI) | payer OTHER, SELFPAY ==
[2018-06-16 07:50] LABS: Abs Immature Grans 0.01 k/cumm (0.0-0.09); Absolute Basophil Count 0.01 k/cumm (0.0-0.2); Absolute Eosinophil Count 0.07 k/cumm (0.0-0.7); Absolute Lymphocyte Count 1.49 k/cumm (1.2-3.4); Absolute Monocyte Count 0.38 k/cumm (0.11-0.7); Absolute Neutrophil Count 3.45 k/cumm (1.2-6.7); Basophils % 0.2; Eosinophils % 1.3; HCT 31.6 % (40.0-50.0); HGB 9.7 g/dL (13.5-17.5); Immature Grans % 0.2; Lymphocytes % 27.5; Mean Corp. HGB Concentration 30.7 g/dL (32.0-36.0); Mean Corpuscular Hemoglobin 28.9 pg (27.0-33.0); Mean Platelet Volume 8.8 fL (8.0-11.0); Neutrophils % 63.8; Platelet Count 211 x1000/uL (130-400); RBC 3.36 m/cumm (4.50-6.00); RBC Distribution Width 16.1 % (11.8-14.1); White Blood Cell Count 5.41 k/cumm (4.4-10.8)
[2018-06-16 08:33] LABS: ALT 18 U/L (12-78); AST 29 U/L (15-37); Albumin 3.3 g/dL (3.4-5.0); Alkaline Phosphatase 110 U/L (46-116); Anion Gap 11.5 mmol/L (3-11); BUN 30 mg/dL (7-18); Bilirubin, Total 0.4 mg/dL (0.2-1.0); CO2 26.5 mmol/L (21.0-32.0); CREATININE 1.25 mg/dL (0.70-1.30); Calcium 8.6 mg/dL (8.5-10.1); Chloride 102 mmol/L (98-107); Estimated GFR 57.27 (mL/min/1.73m2); Glucose 111 mg/dL (70-100); Potassium 3.8 mmol/L (3.5-5.1); Sodium 140 mmol/L (136-145); Total Protein 6.9 g/dL (6.4-8.2)
[2018-06-16 08:39] LABS: NT-proBNP 702 pg/mL
[2018-06-17 09:22] LABS: PSA, Diagnostic 174.5 ng/ml (0-4.5)
[2018-06-19 12:29] LABS: Testosterone, Total <7.0 ng/dL (240-950)
== END 2018-06-16 07:22 ==
PROVIDERS: Nurse Practitioner; PCP Specialist/Technologist Athletic Trainer; Visit Provider Internal Medicine
DX: C61 Malignant neoplasm of prostate (principal); R06.02 Shortness of breath; I25.5 Ischemic cardiomyopathy
CPT/HCPCS: 36415; 80053; 84403; 83880; 84153; 85025

== ENCOUNTER 2018-07-28 02:14 | Outpatient (CLI) | payer OTHER, SELFPAY ==
[2018-07-28 07:42] LABS: Abs Immature Grans 0.02 k/cumm (0.0-0.09); Absolute Basophil Count 0.01 k/cumm (0.0-0.2); Absolute Eosinophil Count 0.07 k/cumm (0.0-0.7); Absolute Lymphocyte Count 1.59 k/cumm (1.2-3.4); Absolute Monocyte Count 0.62 k/cumm (0.11-0.7); Absolute Neutrophil Count 4.82 k/cumm (1.2-6.7); Basophils % 0.1; HCT 32.1 % (40.0-50.0); HGB 10.1 g/dL (13.5-17.5); Immature Grans % 0.3; Lymphocytes % 22.3; Mean Corp. HGB Concentration 31.5 g/dL (32.0-36.0); Mean Corpuscular Hemoglobin 29.2 pg (27.0-33.0); Mean Corpuscular Volume 92.8 fL (80-95); Monocytes % 8.7; Neutrophils % 67.6; Platelet Count 250 x1000/uL (130-400); RBC 3.46 m/cumm (4.50-6.00); RBC Distribution Width 16.1 % (11.8-14.1); White Blood Cell Count 7.13 k/cumm (4.4-10.8)
[2018-07-28 08:19] LABS: ALT 20 U/L (12-78); AST 57 U/L (15-37); Alkaline Phosphatase 170 U/L (46-116); Anion Gap 9.4 mmol/L (3-11); BUN 40 mg/dL (7-18); Bilirubin, Total 0.6 mg/dL (0.2-1.0); CO2 27.6 mmol/L (21.0-32.0); CREATININE 1.53 mg/dL (0.70-1.30); Chloride 100 mmol/L (98-107); Estimated GFR 45.35 (mL/min/1.73m2); Glucose 120 mg/dL (70-100); Potassium 4.5 mmol/L (3.5-5.1); Sodium 137 mmol/L (136-145); Total Protein 7.4 g/dL (6.4-8.2)
[2018-07-28 08:27] LABS: NT-proBNP 383 pg/mL
[2018-07-29 10:36] LABS: PSA, Diagnostic 373.5 ng/ml (0-4.5)
[2018-07-31 08:46] LABS: Testosterone, Total <7.0 ng/dL (240-950)
== END 2018-07-28 02:34 ==
PROVIDERS: Nurse Practitioner; PCP Specialist/Technologist Athletic Trainer; Visit Provider Internal Medicine
DX: I25.5 Ischemic cardiomyopathy (principal); I50.22 Chronic systolic (congestive) heart failure; C61 Malignant neoplasm of prostate
CPT/HCPCS: 36415; 80053; 84403; 83880; 84153; 85025

== ENCOUNTER 2018-08-04 07:02 | Outpatient (CLI) | payer OTHER, SELFPAY ==
[2018-08-04 08:34] LABS: Abs Immature Grans 0.01 k/cumm (0.0-0.09); Absolute Basophil Count 0.01 k/cumm (0.0-0.2); Absolute Eosinophil Count 0.07 k/cumm (0.0-0.7); Absolute Lymphocyte Count 1.22 k/cumm (1.2-3.4); Absolute Monocyte Count 0.41 k/cumm (0.11-0.7); Absolute Neutrophil Count 3.83 k/cumm (1.2-6.7); Basophils % 0.2; Eosinophils % 1.3; HCT 29.4 % (40.0-50.0); HGB 8.9 g/dL (13.5-17.5); Immature Grans % 0.2; Mean Corp. HGB Concentration 30.3 g/dL (32.0-36.0); Mean Corpuscular Hemoglobin 28.1 pg (27.0-33.0); Mean Corpuscular Volume 92.7 fL (80-95); Mean Platelet Volume 9.1 fL (8.0-11.0); Monocytes % 7.4; Neutrophils % 68.9; Platelet Count 246 x1000/uL (130-400); RBC 3.17 m/cumm (4.50-6.00); RBC Distribution Width 15.6 % (11.8-14.1); White Blood Cell Count 5.55 k/cumm (4.4-10.8)
[2018-08-04 08:56] LABS: Diff Comment RBC Morph Reviewed
[2018-08-04 08:57] LABS: Polychromasia Present
[2018-08-04 09:08] LABS: ALT 18 U/L (12-78); AST 39 U/L (15-37); Albumin 3.4 g/dL (3.4-5.0); Alkaline Phosphatase 143 U/L (46-116); Anion Gap 10.8 mmol/L (3-11); BUN 35 mg/dL (7-18); Bilirubin, Total 0.4 mg/dL (0.2-1.0); CO2 26.2 mmol/L (21.0-32.0); CREATININE 1.48 mg/dL (0.70-1.30); Calcium 8.8 mg/dL (8.5-10.1); Chloride 102 mmol/L (98-107); Estimated GFR 47.13 (mL/min/1.73m2); Glucose 115 mg/dL (70-100); NT-proBNP 713 pg/mL; Potassium 4.2 mmol/L (3.5-5.1); Sodium 139 mmol/L (136-145); Total Protein 6.9 g/dL (6.4-8.2)
[2018-08-04 10:23] LABS: Calculated LDL 48; Cholesterol 93 mg/dL (50-200); HDL Cholesterol 26 mg/dL (40-60); Triglyceride 98 mg/dL (30-150)
[2018-08-05 12:58] LABS: PSA, Diagnostic 343.3 ng/ml (0-4.5)
[2018-08-06 08:17] LABS: Testosterone, Total <7.0 ng/dL (240-950)
== END 2018-08-04 07:22 ==
PROVIDERS: PCP Specialist/Technologist Athletic Trainer; Visit Provider Nurse Practitioner
DX: C61 Malignant neoplasm of prostate (principal); I25.5 Ischemic cardiomyopathy; I50.22 Chronic systolic (congestive) heart failure; I25.10 Atherosclerotic heart disease of native coronary artery without angina pectoris
CPT/HCPCS: 36415; 80053; 80061; 83721; 84403; 83880; 84153; 85025

== ENCOUNTER 2018-08-22 12:15 | Outpatient (REF) | payer OTHER, SELFPAY | END 2018-08-22 12:35 | LOC: LBN 12:15 | PROVIDERS: PCP Specialist/Technologist Athletic Trainer; Visit Provider Urology | DX: R30.0 Dysuria (principal) | CPT/HCPCS: 87077; 87086; 87186 ==

== ENCOUNTER 2018-09-05 07:31 | Outpatient (CLI) | payer OTHER, SELFPAY ==
[2018-09-05 08:09] LABS: Abs Immature Grans 0.01 k/cumm (0.0-0.09); Absolute Basophil Count 0.01 k/cumm (0.0-0.2); Absolute Eosinophil Count 0.12 k/cumm (0.0-0.7); Absolute Lymphocyte Count 0.48 k/cumm (1.2-3.4); Absolute Monocyte Count 0.25 k/cumm (0.11-0.7); Basophils % 0.2; Eosinophils % 2.8; HCT 26.5 % (40.0-50.0); HGB 8.4 g/dL (13.5-17.5); Immature Grans % 0.2; Lymphocytes % 11.2; Mean Corp. HGB Concentration 31.7 g/dL (32.0-36.0); Mean Corpuscular Hemoglobin 29.2 pg (27.0-33.0); Mean Platelet Volume 8.7 fL (8.0-11.0); Monocytes % 5.9; Neutrophils % 79.7; Platelet Count 216 x1000/uL (130-400); RBC 2.88 m/cumm (4.50-6.00); RBC Distribution Width 16.7 % (11.8-14.1); White Blood Cell Count 4.27 k/cumm (4.4-10.8)
[2018-09-05 08:53] LABS: ALT 15 U/L (12-78); AST 35 U/L (15-37); Albumin 3.4 g/dL (3.4-5.0); Alkaline Phosphatase 178 U/L (46-116); Anion Gap 13.1 mmol/L (3-11); BUN 28 mg/dL (7-18); Bilirubin, Total 0.5 mg/dL (0.2-1.0); CO2 23.9 mmol/L (21.0-32.0); Calcium 8.3 mg/dL (8.5-10.1); Chloride 101 mmol/L (98-107); Glucose 166 mg/dL (70-100); Potassium 3.5 mmol/L (3.5-5.1); Sodium 138 mmol/L (136-145); Total Protein 7.1 g/dL (6.4-8.2)
[2018-09-08 10:24] LABS: PSA, Diagnostic 319.5 ng/ml (0-4.5)
[2018-09-09 03:23] LABS: Testosterone, Total <7.0 ng/dL (240-950)
== END 2018-09-05 07:51 ==
PROVIDERS: PCP Specialist/Technologist Athletic Trainer; Visit Provider Internal Medicine
DX: C61 Malignant neoplasm of prostate (principal)
CPT/HCPCS: 36415; 80053; 84403; 84153; 85025

== ENCOUNTER 2018-09-08 10:24 | Outpatient (CLI) | payer OTHER, SELFPAY | END 2018-09-08 10:44 | PROVIDERS: PCP Specialist/Technologist Athletic Trainer; Visit Provider Urology | DX: R35.0 Frequency of micturition (principal); R30.0 Dysuria; C61 Malignant neoplasm of prostate | CPT/HCPCS: 87086 ==

== ENCOUNTER 2018-09-29 05:19 | Outpatient (CLI) | payer OTHER, SELFPAY ==
[2018-09-29 07:53] LABS: Abs Immature Grans 0.02 k/cumm (0.0-0.09); Absolute Eosinophil Count 0.05 k/cumm (0.0-0.7); Absolute Lymphocyte Count 0.37 k/cumm (1.2-3.4); Absolute Monocyte Count 0.32 k/cumm (0.11-0.7); Absolute Neutrophil Count 4.31 k/cumm (1.2-6.7); HCT 26.1 % (40.0-50.0); HGB 7.8 g/dL (13.5-17.5); Immature Grans % 0.4; Lymphocytes % 7.3; Mean Corp. HGB Concentration 29.9 g/dL (32.0-36.0); Mean Corpuscular Hemoglobin 28.2 pg (27.0-33.0); Mean Corpuscular Volume 94.2 fL (80-95); Mean Platelet Volume 8.6 fL (8.0-11.0); Monocytes % 6.3; Platelet Count 264 x1000/uL (130-400); RBC 2.77 m/cumm (4.50-6.00); RBC Distribution Width 18.5 % (11.8-14.1); White Blood Cell Count 5.07 k/cumm (4.4-10.8)
[2018-09-29 08:14] LABS: ALT 17 U/L (12-78); AST 42 U/L (15-37); Albumin 3.2 g/dL (3.4-5.0); Alkaline Phosphatase 211 U/L (46-116); BUN 23 mg/dL (7-18); Bilirubin, Total 0.5 mg/dL (0.2-1.0); CREATININE 1.26 mg/dL (0.70-1.30); Calcium 8.4 mg/dL (8.5-10.1); Chloride 100 mmol/L (98-107); Estimated GFR 56.74 (mL/min/1.73m2); Glucose 171 mg/dL (70-100); NT-proBNP 918 pg/mL; Potassium 3.5 mmol/L (3.5-5.1); Sodium 138 mmol/L (136-145); Total Protein 7.4 g/dL (6.4-8.2)
[2018-09-29 08:39] LABS: Anisocytosis 2+; Diff Comment RBC Morph Reviewed; Hypochromasia 1+; Polychromasia Present
[2018-09-29 08:40] LABS: Poikilocytes 1+
[2018-09-30 09:57] LABS: PSA, Diagnostic 390.2 ng/ml (0-4.5)
[2018-10-02 11:40] LABS: Testosterone, Total <7.0 ng/dL (240-950)
== END 2018-09-29 05:39 ==
PROVIDERS: PCP Specialist/Technologist Athletic Trainer; Visit Provider Nurse Practitioner
DX: I25.5 Ischemic cardiomyopathy (principal); I50.22 Chronic systolic (congestive) heart failure; C61 Malignant neoplasm of prostate
CPT/HCPCS: 36415; 80053; 84403; 83880; 84153; 85025

== ENCOUNTER 2018-11-07 10:43 | Outpatient (CLI) | payer OTHER, SELFPAY ==
[2018-11-07 11:17] LABS: Abs Immature Grans 0.07 k/cumm (0.0-0.09); Absolute Basophil Count 0.01 k/cumm (0.0-0.2); Absolute Eosinophil Count 0.01 k/cumm (0.0-0.7); Absolute Lymphocyte Count 0.49 k/cumm (1.2-3.4); Absolute Monocyte Count 0.29 k/cumm (0.11-0.7); Absolute Neutrophil Count 3.28 k/cumm (1.2-6.7); Basophils % 0.2; Eosinophils % 0.2; Immature Grans % 1.7; Lymphocytes % 11.8; Mean Corp. HGB Concentration 28.9 g/dL (32.0-36.0); Mean Corpuscular Hemoglobin 25.9 pg (27.0-33.0); Mean Corpuscular Volume 89.6 fL (80-95); Mean Platelet Volume 8.1 fL (8.0-11.0); Neutrophils % 79.1; Platelet Count 197 x1000/uL (130-400); RBC 2.01 m/cumm (4.50-6.00); RBC Distribution Width 18.6 % (11.8-14.1); Reticulocyte 1.4 % (0.5-2.4); White Blood Cell Count 4.15 k/cumm (4.4-10.8)
[2018-11-07 11:31] LABS: HGB 5.2 g/dL (13.5-17.5)
[2018-11-07 12:10] LABS: Anisocytosis 2+; Diff Comment RBC Morph Reviewed; Hypochromasia 1+; Microcytosis 1+
[2018-11-07 12:11] LABS: Poikilocytes 1+; Polychromasia Present
[2018-11-07 12:23] LABS: Iron 46 ug/dL (50-175); Total Iron Binding Capacity 227 ug/dL (250-450); Transferrin Sat 20 % (20-55)
[2018-11-07 12:48] LABS: ALT 54 U/L (16-63); AST 124 U/L (15-37); Albumin 2.6 g/dL (3.4-5.0); Alkaline Phosphatase 422 U/L (46-116); Anion Gap 13.2 mmol/L (3-11); BUN 28 mg/dL (7-18); Bilirubin, Total 0.4 mg/dL (0.2-1.0); CO2 23.8 mmol/L (21.0-32.0); CREATININE 1.21 mg/dL (0.70-1.30); Calcium 8.4 mg/dL (8.5-10.1); Chloride 99 mmol/L (98-107); Estimated GFR 59.46 (mL/min/1.73m2); Folate 17.7 ng/mL (8.6-20.0); Glucose 166 mg/dL (70-100); Potassium 3.8 mmol/L (3.5-5.1); Sodium 136 mmol/L (136-145); Total Protein 6.7 g/dL (6.4-8.2); Vitamin B12 341 pg/mL (193-986)
== END 2018-11-07 11:03 ==
PROVIDERS: PCP Specialist/Technologist Athletic Trainer; Visit Provider Specialist/Technologist Athletic Trainer
DX: D64.9 Anemia, unspecified (principal)
CPT/HCPCS: 36415; 80053; 82607; 82746; 83540; 83550; 85025; 85045

== ENCOUNTER 2018-11-07 12:44 | Inpatient (IN) | payer OTHER, SELFPAY ==
[2018-11-07] VITALS (17 sets, daily range): BP systolic 81–112; BP diastolic 36–71; PULSE 60–95; RESP 12–24; TEMP 36.7–37.8; O2SAT 96–100
[2018-11-07 13:29] LABS: Abs Immature Grans 0.13 k/cumm (0.0-0.09); Mean Corp. HGB Concentration 29.6 g/dL (32.0-36.0); Mean Corpuscular Hemoglobin 26.3 pg (27.0-33.0); Mean Corpuscular Volume 88.9 fL (80-95); Mean Platelet Volume 8.7 fL (8.0-11.0); Platelet Count 192 x1000/uL (130-400); RBC Distribution Width 18.7 % (11.8-14.1); White Blood Cell Count 4.47 k/cumm (4.4-10.8)
--- NOTE | 2018-11-07 13:31 | DI.RAD_ITS ---
EXAM: XR CHEST 2V PA LATERAL INDICATION: mild cough. COMPARISON: No exams were available for comparison TECHNIQUE: 2D digital imaging was performed. FINDINGS: The lungs are well expanded and free of infiltrate. There is no pleural effusion. The heart is not e nlarged. The hilar structures, mediastinum and tracheal air column are intact. Cardiac pacing leads end in the right atrium and right ventricle. library monitor leads overlie the chest wall. IMPRESSION: No evidence of an infiltrate or mass. No evidence of acute cardiopulmonary disease.
--- NOTE | 2018-11-07 13:31 | W.ED.GENAD ---
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 He presents today for evaluation of low hemoglobin. No red flags of hematochezia melena or acholic stool. No red flags of hematuria. He did have a urinalysis earlier today which is negative for any significant blood. Physical exam is notably unremarkable, slightly pale conjunctiva. He is on aspirin daily. At this time concern is highest for potentially mild upper GI bleed or anemia of chronic disease. He does admit to decreased bowel movements, and occasional mild cramping but is asymptomatic now. We will get a CT scan to evaluate for colonic thickening out of concern for potential metastases to colon, we will start blood products, and reassess. 5 PM Patient laboratory work-up continued to demonstrate expectant findings, hemoglobin was 5.0, but he does not have evidence of pancytopenia, platelets normal. Coagulation studies stable, electrolytes normal, creatinine at baseline. Urinalysis negative for any blood. Stool Hemoccult negative. Patient's blood pressure actively oscillates between 80 systolic and 110 systolic. Family states that this is very normal for him. I did discuss central line and pressor support as a precaution, and family has refused this at this time. Initially patient did not want to stay overnight, however with his notably severe hemoglobin dropped, it strongly encouraged him to stay for blood and further surgical evaluation. I did contact the hospitalist and discussed the case with , he did recommend further surgical evaluation as there is no clear source of an active bleed however GI bleed is likely the cause of the patient's symptomatology. I did contact Dr. Retana the surgeon on-call, she came and assessed the patient. She agrees with the need for further EGD and colonoscopy evaluation. She accepts the patient for admission. I have extensively reviewed the treatment plan with the patient. I have addressed all patient concerns at this time. I have also discussed the plan with the admitting physician and they agree with the current assessment and plan and have agreed to assume responsibility for the patient. All parties demonstrate verbal understanding and agreement with our assessment and plan at this time. EKG 13: 08 Rate 89, intervals normal, sinus rhythm, no significant ST elevations or depressions, QRS is slightly prolonged. No evidence of STEMI, no significant Q waves. FINDINGS: The lungs are well expanded and free of infiltrate. There is no pleural effusion. The heart is not enlarged. The hilar structures, mediastinum and tracheal air column are intact. Cardiac pacing leads end in the right atrium and right ventricle. environmental monitoring specialist leads overlie the chest wall. IMPRESSION: No evidence of an infiltrate or mass. No evidence of acute cardiopulmonary disease. FINDINGS: Liver: Unremarkable. No mass. Gallbladder and bile ducts: Unremarkable. No calcified stones. No ductal dilation. Pancreas: Unremarkable. No ductal dilation. Spleen: Unremarkable. No splenomegaly. Adrenals: A left adrenal gland mass measuring 3 cm in diameter is new and consistent with metastatic disease. Normal right adrenal gland. Kidneys and ureters: Moderate dilatation of the left proximal renal collecting system to the level of the mid ureter on axial images 46 through 50 is redemonstrated. The distal left ureter is nondilated. The right kidney and right ureter are unremarkable. Stomach and bowel: Unremarkable. No obstruction. No mucosal thickening. Appendix: No evidence of appendicitis. Intraperitoneal space: Unremarkable. No free air. No significant fluid collection. Retroperitoneal space: Left-sided infrarenal retroperitoneal stranding is unchanged. Vasculature: Mild atherosclerosis of the abdominal aorta. No aneurysm. Lymph nodes: There has been interval change in the retroperitoneal lymphadenopathy which is now more infiltrative in appearance. Bladder: Mild wall thickening of the urinary bladder is unchanged. The probable urinary bladder wall invasion by prostate tumor is less prominent. Reproductive: There has been an interval decrease in size of the prostate, which now measures approximately 3.2 cm x 3.7 cm x 3.0 cm. Bones/joints: Interval progression of osseous bony metastatic disease is present. No acute fracture is identified. Soft tissues: Unremarkable. IMPRESSION: 1. Interval decrease in size of heterogeneously enhancing prostate. 2. Mild retroperitoneal lymphadenopathy. 3. Moderate left hydronephrosis, similar to that seen on the prior exam. The distal left ureter is now nondistended. 4. New left adrenal gland mass measuring 3 cm in diameter, consistent with metastatic disease. 5. Diffuse bony metastatic disease. Thank you for allowing us to participate in the care of your patient. Dictated and Authenticated by: Serg Feng MD HPI General Date/Time Provider Initiated Documentation: 11/07/18 12:57. 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 He also has a history of hypertension, coronary artery disease and high cholesterol. He also has a history of hematuria in the past which is notably resolved. He presents today for evaluation of notably low hemoglobin after routine blood draw. He has had some mild fatigue as of late however he denies any vomiting, nausea, hematemesis, diarrhea, melena, acholic stool, hematuria. He does admit to increased flatus and decreased bowel movements but denies any abdominal pain. Does admit to a very occasional cough but denies any chest pain, shortness of breath, numbness tingling weakness, bandlike sensation in the chest or chest heaviness. He was at his PCPs office today which did demonstrate a hemoglobin less than 6, urinalysis which was benign, electrolytes which is relatively benign. He does take aspirin but no other blood thinners. He has no other complaints at this time. Related Data Home Medications Medication Instructions Recorded Confirmed leuprolide 22.5 mg SQ every 3 mos kit 05/16/15 11/07/18 cholecalciferol (vitamin D3) 2 tab PO DAILY 09/01/15 11/07/18 aspirin [Aspir-81] 81 mg PO DAILY 11/03/16 11/07/18 atorvastatin [Lipitor] 40 mg PO HS 11/03/16 11/07/18 metoprolol succinate [Toprol XL] 75 mg PO DAILY 11/03/16 11/07/18 torsemide 100 mg PO DAILY 11/03/16 11/07/18 losartan 50 mg PO QPM 10/08/17 11/07/18 calcium carbonate [Calcium 500] 500 mg PO DAILY 02/27/18 11/07/18 [id number] acid 1 tab PO DAILY 11/07/18 11/07/18 [Multi-Day with Iron] Allergies Allergy/AdvReac Type Severity Reaction Status Date / Time No Known Allergies Allergy Unverified 11/07/18 18:11 General Stated Complaint: GenMedical HOMER: 2 Review of Systems Review of Systems ROS Unobtainable: All systems reviewed & are unremarkable except as noted in HPI and below PFSH Social History Smoking/Tobacco Use Status: Never Alcohol Intake: never Drug use: Never Substance use type: does not use Do you feel safe at home: Yes Do you feel safe in your relationship?: Yes Exam Narrative Exam Narrative: 1.Const: Well-nourished, Well-developed, appearing stated age 2.Eyes: PERRL, no conjunctival injection, and symmetrical lids. Slightly pale conjunctiva 3.ENT: Atraumatic external nose and ears. Moist MM. Neck: Symmetric, trachea midline, No thyromegaly. 4.CVS: +S1/S2, No murmurs or gallops. Peripheral pulses 2+ and equal in all extremities. Brisk capillary refill in all extremities. 5.RESP: Unlabored respiratory effort. Clear to auscultation bilaterally. No wheezes rales or rhonchi 6.GI: Soft, Nontender/Nondistended, No hepatosplenomegaly. No guarding or rebound. Rectal exam demonstrates normal male rectal exam, no fissures, no active blood or melena, stool Hemoccult is negative. 7.MSK: Normocephalic/Atraumatic, Extremities w/o deformity or ttp No cyanosis or clubbing, Normal movement of all extremities 8.Skin: Warm, Dry. No rashes or lesions. 9.Neuro: division director II-XII grossly intact. Sensation grossly intact, no focal neurologic deficits. 10.Psych: (AAO) x3. Appropriate mood and affect Course Vital Signs Vital signs: Vital Signs Temperature 37.1 C 11/07/18 12:57 Pulse 95 H 11/07/18 12:57 Respiratory Rate 16 11/07/18 12:57 Blood Pressure 101/47 L 11/07/18 12:57 Pulse Oximetry 100 11/07/18 12:57 Temperature 37.1 C 11/07/18 12:57 Temperature Source Skin 11/07/18 12:57 Pulse 95 H 11/07/18 12:57 Respiratory Rate 16 11/07/18 12:57 Blood Pressure 101/47 L 11/07/18 12:57 Blood Pressure Position Supine 11/07/18 12:57 Pulse Oximetry 100 11/07/18 12:57 Oxygen Delivery Method Room Air 11/07/18 12:57 Oxygen Flow Rate 0 11/07/18 12:57 Pain Level 0 11/07/18 12:57 Lab/Test Results Lab/Test Results: Laboratory Tests Range/Units 11/07/18 13:05 Crossmatch See Detail
[2018-11-07] MEDS: Omnipaque 350 MG/ML 100 ML BTL IJ (13:34)
--- NOTE | 2018-11-07 13:45 | DI.CT_ITS ---
EXAM: CT ABDOMEN PELVIS W CLINICAL HISTORY: abdominal pain, drop in hgb, constipation. TECHNIQUE: CT CHEST/ABD/PEL W from 05/09/2018 FINDINGS: The liver is unremarkable. The gallbladder is unremarkable. There are no stones or ductal dilatation. The pancreas and spleen are unremarkable. A left adrenal gland mass measures 3 cm in diameter and is new, consistent with metastatic disease. The right adrenal gland is normal. There is moderate dilata tion of the left proximal renal collecting system to the level of the mid ureter. The distal left is nondilated. The right kidney and right ureter are unremarkable. The stomach is unremarkable. There is no evidence of obstruction or mucosal thickening. There is nothing to suggest an acute appendix. The re is no free air or significant fluid in the intraperitoneal space. Left sided renal retroperitoneal stranding is unchanged. There are mild atherosclerotic changes involving the abdominal aorta. There is no evidence of an aneurysm. There has been an interval change in the retroperitoneal lymphadenopat hy which is now more infiltrative in appearance. Bladder wall thickening is identified, unchanged. Th ere is probable urinary bladder invasion by prostate tumor which appears less prominent on today's ex amination. An interval decrease in the size of the prostate which now measures approximately 3.2 x 3. 7 x 3.0 cm. Note is made of interval progression of osseous metastatic disease. No acute fracture is seen. The soft tissues are unremarkable. IMPRESSION: Summary interval decrease in the size of a heterogeneously enhancing prostate. There is mild retroper itoneal lymphadenopathy. Moderate left hydronephrosis is similar to that on the prior examination. Di stal left ureter is now nondistended. There is a new 3 cm left adrenal mass. This would be consistent with metastatic disease. Diffuse bony metastases are identified.
[2018-11-07 13:53] LABS: ALT 52 U/L (16-63); AST 130 U/L (15-37); Albumin 2.4 g/dL (3.4-5.0); Alkaline Phosphatase 375 U/L (46-116); BUN 29 mg/dL (7-18); Bilirubin, Total 0.4 mg/dL (0.2-1.0); CREATININE 1.34 mg/dL (0.70-1.30); Calcium 8.5 mg/dL (8.5-10.1); Chloride 98 mmol/L (98-107); Estimated GFR 52.85 (mL/min/1.73m2); Glucose 163 mg/dL (70-100); Potassium 3.9 mmol/L (3.5-5.1); Sodium 134 mmol/L (136-145); Total Protein 7.4 g/dL (6.4-8.2)
[2018-11-07 14:08] LABS: HCT 16.9 % (40.0-50.0)
[2018-11-07 14:09] LABS: Absolute Lymphocyte Count 0.45 k/cumm (1.2-3.4); Absolute Neutrophil Count 3.62 k/cumm (1.2-6.7)
[2018-11-07 14:10] LABS: Absolute Monocyte Count 0.22 k/cumm (0.11-0.7); Anisocytosis 2+; Diff Comment Manual Differential; Hypochromasia 1+; Microcytosis 1+
[2018-11-07 14:11] LABS: Poikilocytes 1+; Polychromasia Present
[2018-11-07 14:42] LABS: INR 1.2 (0.9-1.1); PTT Activated 31.6 sec (21.0-31.4); Prothrombin Time 12.2 sec (9.3-11.0)
--- NOTE | 2018-11-07 14:51 | NUR.NOTE ---
Consent obtained and patient educated.
--- NOTE | 2018-11-07 16:09 | W.SURGCON ---
Date of service: 11/07/18 Time of Service: 16:10 History of Present Illness Narrative: pt was sent to ED by PCP how checked his hgb and found it to be low- 5.0. He has always been anemic- around 8.0. He is on ASA- baby daily. stool was heme -. BP is stable. pt has prostate CA and treated w/ lupron. hematuria. Consults Consult date: 11/07/18 Requesting physician: Barak Felton [facility] Social History Smoking/Tobacco Use Status: Never Alcohol Intake: never Drug use: Never Substance use type: does not use Do you feel safe at home: Yes Do you feel safe in your relationship?: Yes Results Last Vital Signs Temp 37.0 C 11/07/18 15:32 Pulse 81 11/07/18 16:02 Resp 16 11/07/18 16:02 BP 104/56 L 11/07/18 16:02 Pulse Ox 98 11/07/18 16:02 Labs Result diagrams: 11/07/18 13:05 11/07/18 13:05 Labs: Laboratory Results - last 24 hr 11/07/18 11/07/18 11/07/18 13:05 13:05 13:05 WBC 4.47 RBC 1.90 L Hgb 5.0 L* Hct 16.9 L* MCV 88.9 MCH 26.3 L MCHC 29.6 L RDW 18.7 H Plt Count 192 MPV 8.7 Immature Gran % See Differential Neutrophils % 76.0 Band Neutrophils % 5.0 Lymphocytes % 10.0 Monocytes % 5.0 Eosinophils % 0.0 Basophils % 0.0 Metamyelocytes % 4.0 Absolute Neutrophils 3.62 Absolute Lymphocytes 0.45 L Absolute Monocytes 0.22 Absolute Eosinophils 0.00 Absolute Basophils 0.00 Differential Comment Manual differential RBC Morphology See below Polychromasia Present Hypochromasia 1+ Poikilocytosis 1+ Anisocytosis 2+ Microcytosis 1+ PT INR APTT Sodium 134 L Potassium 3.9 Chloride 98 Carbon Dioxide 22.0 Anion Gap 14.0 H BUN 29 H Creatinine 1.34 H Estimated GFR/1.73 m2 52.85 Glucose 163 H Calcium 8.5 Total Bilirubin 0.4 AST 130 H ALT 52 Alkaline Phosphatase 375 H Total Protein 7.4 Albumin 2.4 L Patient ABO/Rh B Positive Antibody Screen Negative Crossmatch See Detail 11/07/18 11/07/18 13:05 14:15 WBC RBC Hgb Hct MCV MCH MCHC RDW Plt Count MPV Immature Gran % Neutrophils % Band Neutrophils % Lymphocytes % Monocytes % Eosinophils % Basophils % Metamyelocytes % Absolute Neutrophils Absolute Lymphocytes Absolute Monocytes Absolute Eosinophils Absolute Basophils Differential Comment RBC Morphology Polychromasia Hypochromasia Poikilocytosis Anisocytosis Microcytosis PT Cancelled 12.2 H INR Cancelled 1.2 H APTT Cancelled 31.6 H Sodium Potassium Chloride Carbon Dioxide Anion Gap BUN Creatinine Estimated GFR/1.73 m2 Glucose Calcium Total Bilirubin AST ALT Alkaline Phosphatase Total Protein Albumin Patient ABO/Rh Antibody Screen Crossmatch
[2018-11-07 18:25] LABS: Bilirubin Negative (Negative); Blood Negative (Negative); Clarity Clear (Clear); Glucose Negative (Negative); Ketones Negative (Negative); Leukocyte Esterase Negative (Negative); Nitrite Negative (Negative); Specific Gravity <= 1.005 (1.005-1.025)
[2018-11-07] MEDS: Normal Saline Flush 10 ML SYR IVP ×2 (18:55→20:05)
[2018-11-07] MEDS: IRON SUCROSE COMPLEX 200 MG in Normal Saline 100 ML 136.176 MG IVPB (18:59)
[2018-11-07 19:22] LABS: Ferritin > 1000 ng/mL (8-388)
[2018-11-07] MEDS: diphenhydrAMINE 25 MG CAP PO (20:06)
[2018-11-07] MEDS: Ciprofloxacin 250 MG TAB PO (20:06)
[2018-11-07] MEDS: Acetaminophen 325 MG TAB 650 MG PO (20:06)
[2018-11-07] MEDS: Magnesium Citrate 300 ML BTL PO (20:07)
[2018-11-07] MEDS: Lactated Ringers 1,000 ML 125 ML IV (20:10)
[2018-11-07] MEDS: Sucralfate 1 GM TAB PO (21:39)
--- NOTE | 2018-11-07 22:09 | HPE_ITS ---
Date of service: 11/07/18 Time of Service: 22:10 Assessment and Plan Assessment and plan (1) Iron deficiency anemia due to chronic blood loss: Status: Acute Assessment and plan: pt has been taking po iron supp will do IV Fe supp IV PPI start carafate plan EGD in am risk: bleeding/infecton/perforation/aspiration/comp of anethesia no etiology for acute blood loss check periph smear (2) CAD (coronary artery disease): Status: Chronic (3) Prostate cancer: Status: Chronic Assessment and plan: mets to bladder by direct extension s/p XRT (4) Primary prostate cancer with metastasis from prostate to other site: Status: Acute History of Present Illness Consults Consult date: 11/07/18 Requesting physician: Deonna Carr Narrative: pt was sent to ED by PCP how checked his hgb and found it to be low- 5.0. He has always been anemic- around 8.0. He is on ASA- baby daily. stool was heme -. BP is stable. pt has prostate CA and treated w/ lupron. denies hematuria. He was having signif hematuria earlier this summer. He did undergo XRT. He has had no bleeding since than. He has been having problems w/ constipation lately. He has had problems w/ abdom pain and n/v, on saturday/saturday. He has not moved his bowels since the weekend. no wt loss. no bleeding. no black tarry stools. In june/july prior to XRT- he was playing volleyball. He is week/tired and can't do any activities. right colon is mildly dilated. don't see lg masses. Needs to move his bowels. there are some mildly dilated loops of small bowel- nonspeicific Review of Systems Review of Systems ROS Unobtainable: All systems reviewed & are unremarkable except as noted in HPI and below PFSH Medical History (Updated 11/07/18 @ 22:26 by Janeen Retana DO) CAD (coronary artery disease) (Chronic) Cardiomyopathy (Chronic) Iron deficiency anemia due to chronic blood loss (Acute) Primary prostate cancer with metastasis from prostate to other site (Acute) Prostate cancer (Chronic) Prostate cancer (Chronic) Surgical History S/P implantation of automatic cardioverter/defibrillator (AICD) (Inactive) S/P orchiectomy (Inactive) Social History Smoking/Tobacco Use Status: Never Alcohol Intake: never Drug use: Never Substance use type: does not use Do you feel safe at home: Yes Do you feel safe in your relationship?: Yes Meds Home Medications and Allergies Home Medications Medication Instructions Recorded Confirmed Type leuprolide 22.5 mg SQ every 3 mos kit 05/16/15 11/07/18 History cholecalciferol (vitamin D3) 2 tab PO DAILY 09/01/15 11/07/18 History aspirin [Aspir-81] 81 mg PO DAILY 11/03/16 11/07/18 History atorvastatin [Lipitor] 40 mg PO HS 11/03/16 11/07/18 History metoprolol succinate [Toprol XL] 75 mg PO DAILY 11/03/16 11/07/18 History torsemide 100 mg PO DAILY 11/03/16 11/07/18 History losartan 50 mg PO QPM 10/08/17 11/07/18 History calcium carbonate [Calcium 500] 500 mg PO DAILY 02/27/18 11/07/18 History [id number]-[id number] acid 1 tab PO DAILY 11/07/18 11/07/18 History [Multi-Day with Iron] Allergies Allergy/AdvReac Type Severity Reaction Status Date / Time No Known Allergies Allergy Unverified 11/07/18 18:11 Exam Const General: cooperative, comfortable, no acute distress, well developed and well groomed Nutritional Appearance: average body habitus and well nourished Orientation: alert, awake and oriented x3 Other: pale. [facility] Head: normal to inspection, normocephalic and atraumatic Ears: hearing grossly normal bilaterally and external ears normal General nose exam: external nose normal Face and sinus: normal facial exam and sinuses nontender Mouth: oral mucosae normal, lip normal, tongue normal and moist mucous membranes Teeth and gingiva: dentition normal Eyes General: appearance normal, both eyes and all related structures Conjunctivae: conjunctivae normal Sclera: sclerae normal Pupils: PERRL Neck Neck: normal visual inspection and full ROM Chest Chest: normal inspection of the chest Resp Effort & Inspection: normal respiratory effort, able to speak in complete sentences, no cough, no nasal flaring, not tachypneic and no use of accessory muscles Auscultation: clear to auscultation bilaterally, no rales, no rhonchi and no wheezes Cardio Jugular venous pressure: no JVD Rate: regular rate Rhythm: regular rhythm GI Inspection: normal to inspection, no edema and distended Palpation: soft, no masses, nontender and No ascites Auscultation: normal bowel sounds Other: mildly distended . minimal tenderness in epigastric position. Skin General skin exam: no rashes or lesions noted Trauma: no lacerations or abrasions Neuro General: alert, oriented x3, oriented, gait normal, moves all extremities, no focal motor deficits and CN's II-XI intact bilaterally Cognition: normal cognition Speech: speech normal Gait: normal gait Motor: muscle tone normal throughout Extrem General: normal to inspection, full ROM and no clubbing, cyanosis or edema Psych Appearance: grossly normal and well kempt Mental Status: mental status grossly normal Speech and Movement: speech and movement normal Affect: normal affect Results Labs Result diagrams: 11/07/18 13:05 11/07/18 13:05 Labs: Laboratory Results - last 24 hr 11/07/18 11/07/18 11/07/18 13:05 13:05 13:05 WBC 4.47 RBC 1.90 L Hgb 5.0 L* Hct 16.9 L* MCV 88.9 MCH 26.3 L MCHC 29.6 L RDW 18.7 H Plt Count 192 MPV 8.7 Immature Gran % See Differential Neutrophils % 76.0 Band Neutrophils % 5.0 Lymphocytes % 10.0 Monocytes % 5.0 Eosinophils % 0.0 Basophils % 0.0 Metamyelocytes % 4.0 Absolute Neutrophils 3.62 Absolute Lymphocytes 0.45 L Absolute Monocytes 0.22 Absolute Eosinophils 0.00 Absolute Basophils 0.00 Differential Comment Manual differential RBC Morphology See below Polychromasia Present Hypochromasia 1+ Poikilocytosis 1+ Anisocytosis 2+ Microcytosis 1+ PT INR APTT Sodium 134 L Potassium 3.9 Chloride 98 Carbon Dioxide 22.0 Anion Gap 14.0 H BUN 29 H Creatinine 1.34 H Estimated GFR/1.73 m2 52.85 Glucose 163 H Calcium 8.5 Ferritin Total Bilirubin 0.4 AST 130 H ALT 52 Alkaline Phosphatase 375 H Total Protein 7.4 Albumin 2.4 L Urine Color Urine Clarity Urine pH Ur Specific [place] Urine Protein Urine Ketones Urine Blood Urine Nitrite Urine Bilirubin Urine Urobilinogen Ur Leukocyte Esterase Urine Glucose Patient ABO/Rh B Positive Antibody Screen Negative Crossmatch See Detail 11/07/18 11/07/18 11/07/18 13:05 13:14 14:15 WBC RBC Hgb Hct MCV MCH MCHC RDW Plt Count MPV Immature Gran % Neutrophils % Band Neutrophils % Lymphocytes % Monocytes % Eosinophils % Basophils % Metamyelocytes % Absolute Neutrophils Absolute Lymphocytes Absolute Monocytes Absolute Eosinophils Absolute Basophils Differential Comment RBC Morphology Polychromasia Hypochromasia Poikilocytosis Anisocytosis Microcytosis PT Cancelled 12.2 H INR Cancelled 1.2 H APTT Cancelled 31.6 H Sodium Potassium Chloride Carbon Dioxide Anion Gap BUN Creatinine Estimated GFR/1.73 m2 Glucose Calcium Ferritin > 1000 H Total Bilirubin AST ALT Alkaline Phosphatase Total Protein Albumin Urine Color Urine Clarity Urine pH Ur Specific [place] Urine Protein Urine Ketones Urine Blood Urine Nitrite Urine Bilirubin Urine Urobilinogen Ur Leukocyte Esterase Urine Glucose Patient ABO/Rh Antibody Screen Crossmatch 11/07/18 18:08 WBC RBC Hgb Hct MCV MCH MCHC RDW Plt Count MPV Immature Gran % Neutrophils % Band Neutrophils % Lymphocytes % Monocytes % Eosinophils % Basophils % Metamyelocytes % Absolute Neutrophils Absolute Lymphocytes Absolute Monocytes Absolute Eosinophils Absolute Basophils Differential Comment RBC Morphology Polychromasia Hypochromasia Poikilocytosis Anisocytosis Microcytosis PT INR APTT Sodium Potassium Chloride Carbon Dioxide Anion Gap BUN Creatinine Estimated GFR/1.73 m2 Glucose Calcium Ferritin Total Bilirubin AST ALT Alkaline Phosphatase Total Protein Albumin Urine Color Yellow Urine Clarity Clear Urine pH 6.0 Ur Specific [place] <= 1.005 Urine Protein Negative Urine Ketones Negative Urine Blood Negative Urine Nitrite Negative Urine Bilirubin Negative Urine Urobilinogen 1.0 H Ur Leukocyte Esterase Negative Urine Glucose Negative Patient ABO/Rh Antibody Screen Crossmatch Last Vital Signs Temp 37.6 C H 11/07/18 21:51 Pulse 60 11/07/18 21:51 Resp 20 11/07/18 21:51 BP 112/55 L 11/07/18 21:51 Pulse Ox 96 11/07/18 21:51
[2018-11-08] VITALS (9 sets, daily range): BP systolic 97–119; BP diastolic 59–76; PULSE 77–84; RESP 16–19; TEMP 36.7–37.5; O2SAT 95–100
[2018-11-08] MEDS: Lactated Ringers 1,000 ML 125 ML IV (04:00)
[2018-11-08 05:36] LABS: Abs Immature Grans 0.11 k/cumm (0.0-0.09); HCT 27.5 % (40.0-50.0); Mean Corp. HGB Concentration 32.7 g/dL (32.0-36.0); Mean Corpuscular Volume 85.7 fL (80-95); Mean Platelet Volume 8.8 fL (8.0-11.0); Platelet Count 142 x1000/uL (130-400); RBC 3.21 m/cumm (4.50-6.00); RBC Distribution Width 16.2 % (11.8-14.1); White Blood Cell Count 4.23 k/cumm (4.4-10.8)
[2018-11-08 05:41] LABS: ALT 44 U/L (16-63); AST 116 U/L (15-37); Albumin 2.2 g/dL (3.4-5.0); Alkaline Phosphatase 368 U/L (46-116); Anion Gap 9.5 mmol/L (3-11); BUN 23 mg/dL (7-18); CO2 24.5 mmol/L (21.0-32.0); CREATININE 1.15 mg/dL (0.70-1.30); Calcium 8.2 mg/dL (8.5-10.1); Chloride 103 mmol/L (98-107); Glucose 119 mg/dL (70-100); Potassium 4.3 mmol/L (3.5-5.1); Sodium 137 mmol/L (136-145); Total Protein 6.5 g/dL (6.4-8.2)
[2018-11-08 06:02] LABS: Absolute Lymphocyte Count 0.25 k/cumm (1.2-3.4); Absolute Monocyte Count 0.21 k/cumm (0.11-0.7); Diff Comment Manual Differential; RBC Morphology Normal
--- NOTE | 2018-11-08 08:22 | PDOC.CMIN ---
- If Service Date Differs Date of service: 11/08/18 Time of Service: 08:22 Care Management Initial Assess REASON FOR HOSPITALIZATION:: iron deficiency anemia secondary to chronic blood loss PAST MEDICAL HISTORY/PAST SURGICAL HISTORY:: Medical History: CAD (coronary artery disease) (Chronic). Cardiomyopathy (Chronic). Iron deficiency anemia due to chronic blood loss (Acute). Primary prostate cancer with metastasis from prostate to other site (Acute). Surgical History: S/P implantation of automatic cardioverter/defibrillator (AICD) (Inactive). S/P orchiectomy (Inactive) PREVIOUS FUNCTIONAL STATUS/SOCIAL/FAMILY SUPPORTS:: Josiah resides with his Malu in [place], [place]. The couple report a good support network of family and friends. Josiah reports he worked at [employer] for years prior to long-term, and reports enjoying his long-term. He also shares his cancer diagnosis came about in 2008 and had already metastasized at that time. He has hormonal treatments every three monthes at [facility]. CURRENT FUNCTIONAL STATUS:: Josiah was sitting up in the chair talking with family when CM met with him. He was pleasant and receptive to conversation but not very talkative. He stated that he is feeling much better than when he first came in and has received 4 units of blood. He would like to go home today he reports, but the doctor wants him to stay one more night. ADVANCE DIRECTIVES:: On file at [facility]. HCA: Sofi Gongora Has patient been provided with information about the portal?: Yes Did the patient sign up for the portal?: No CODE STATUS:: DNR/DNI INSURANCE COVERAGE / FINANCIAL ISSUES:: Health plans INC CURRENT HOME/COMMUNITY SERVICES/EQUIPMENT:: none currently PRIMARY CARE PHYSICIAN:: Nolberto Robert POTENTIAL DISCHARGE NEEDS:: Follow up with PCP, surgeon and discharge plan of care PATIENT/FAMILY EDUCATION NEEDS:: Discharge plan, limitations, follow up, Ask Me Three. ANTICIPATED BARRIERS TO DISCHARGE:: none TRANSPORTATION:: via private vehicle with PLAN:: Josiah has received 4 blood transfusions for his profound, blood-loss anemia. He will return home with no new services. CM will continue to provide support to patient, family and discharge planning needs
[2018-11-08] MEDS: Normal Saline Flush 10 ML SYR IVP (09:29)
--- NOTE | 2018-11-08 10:07 | STOM_PTH ---
PATIENT: CHANDA PATEL LOC: U#:[id number] AGE/SX: 68/M ROOM: RE11/07/[address]: Janeen Retana : 1950 BED: A DIS: 11/10/2018 SPEC #: [id number] RECD: 11/10/18 11:11 STATUS: [facility] #: [id number] YELITZA: 11/08/18 10:[address]: Janeen Retana DEPT: Surgical Specimen RECD BY: Lucia Wilder ENTERED: 11/10/18 11:13 SP TYPE: STOMACH OTHR DR: Nolberto Robert Tissues: 1 - BIOPSY BOWEL 2 - STOMACH BIOPSY 3 - STOMACH BIOPSY 4 - ESOPHAGUS BIOPSY 5 - ESOPHAGUS BIOPSY Procedures: GROSS AND MICRO LEVEL 4 IMMUNOPEROXIDASE STAIN Comments: [id number]
[2018-11-08] MEDS: Lactated Ringers 1,000 ML 50 ML IV (11:30)
[2018-11-08] MEDS: Sucralfate 1 GM TAB PO ×3 (11:36→20:48)
[2018-11-08] MEDS: Ciprofloxacin 250 MG TAB PO ×2 (11:37→20:45)
[2018-11-08] MEDS: Mirabegron 25 MG TABCR PO (11:37)
[2018-11-08] MEDS: Torsemide 20 MG TAB 100 MG PO (13:15)
--- NOTE | 2018-11-08 14:26 | ENDO_ITS ---
Date of service: 11/08/18 Time of Service: 10:00 Endoscopy Report DATE OF PROCEDURE: 11/08/18 PRE-OP DIAGNOSIS: Fe defn anemia/GI bleed POST-OP DIAGNOSIS: other (mild gastritis ) PROCEDURE: egd w/ bx SURGEON: Janeen Retana ANESTHESIA: MAC ESTIMATED BLOOD LOSS: 2 PATHOLOGY: other COMPLICATIONS: None DISPOSITION: PACU INDICATIONS: se H & P PROCEDURE DESCRIPTION: After informed consent was obtained the patient was take to the procedure room and placed in a supine position. Monitors were applied and a time out was done. The patients name, date of , procedure type, allergies to medications and metal in their body was reviewed. A bite block was placed and the patient was sedated. Once sedated and comfortable the gastroscope was advanced through the oropharynx which was grossly normal into the esophagus. The proximal and mid-esophagus were nl.. In the distal esophagus there was small hiatal hernia and some mild esophagitis noted. The scope was advanced into the stomach and through the pylorus into the 3rd portion of the duodenum. The duodenum was noted to be nl. Biopsies were done. The scope was retracted back into the stomach and biopsies were done to rule out H. pylori. There were no ulcers. The scope was retroflexed. The cardia and fundus were noted to be normal. There small a hiatal hernia noted. The scope was retracted back into the esophagus and biopsies were done of the GE junction to rule out Marie's. The scope was removed and the patient was woken up and taken back to [facility] in stable condition. This is an essentially nl exam and does not explain pt degree of anemia.
--- NOTE | 2018-11-08 14:31 | W.PM.PROGNOT ---
Date of Service Date of service: 11/08/18 Time of Service: 14:31 Assessment and Plan Assessment and plan (1) Iron deficiency anemia due to chronic blood loss: Status: Acute Assessment and plan: EGD essentially unremarkable needs CE in future. ? Saturday check H & H at 4pm today cont PPI & carafate supportive care hold BP meds. pt bp has been good: 112/72 (2) CAD (coronary artery disease): Status: Chronic (3) Prostate cancer: Status: Chronic (4) Primary prostate cancer with metastasis from prostate to other site: Status: Acute Subjective Subjective Interval history since last seen: Pt is doing well. no headaches. No CP or SOB. no productive cough. no dysuria. no leg pain or swelling. stools were all heme. no hematuria. pt has much better color and feels stronger. no abdominal pain/H/I. Exam Const General: cooperative, healthy appearing, comfortable, no acute distress, well developed and well groomed Nutritional Appearance: average body habitus and well nourished Orientation: alert, awake and oriented x3 [facility] Head: normal to inspection, normocephalic and atraumatic Ears: hearing grossly normal bilaterally and external ears normal General nose exam: external nose normal Face and sinus: normal facial exam and sinuses nontender Mouth: oral mucosae normal, lip normal, tongue normal and moist mucous membranes Teeth and gingiva: dentition normal Eyes General: appearance normal, both eyes and all related structures Conjunctivae: conjunctivae normal Sclera: sclerae normal Pupils: PERRL Neck Neck: normal visual inspection and full ROM Chest Chest: normal inspection of the chest Resp Effort & Inspection: normal respiratory effort, able to speak in complete sentences, no cough, no nasal flaring, not tachypneic and no use of accessory muscles Auscultation: clear to auscultation bilaterally, no rales, no rhonchi and no wheezes Cardio Jugular venous pressure: no JVD Rate: regular rate Rhythm: regular rhythm GI Inspection: normal to inspection, no edema and non-distended Palpation: soft, no masses, nontender and No ascites Auscultation: normal bowel sounds Skin General skin exam: no rashes or lesions noted Trauma: no lacerations or abrasions Neuro General: alert, oriented x3, oriented, gait normal, moves all extremities, no focal motor deficits and CN's II-XI intact bilaterally Cognition: normal cognition Speech: speech normal Gait: normal gait Motor: muscle tone normal throughout Extrem General: normal to inspection, full ROM and no clubbing, cyanosis or edema Psych Appearance: grossly normal and well kempt Mental Status: mental status grossly normal Speech and Movement: speech and movement normal Affect: normal affect Objective Objective Clinical Data: Abnormal lab results 11/07/18 11/07/18 11/07/18 Range/Units 13:05 13:14 14:15 WBC (4.4-10.8) k/cumm RBC (4.50-6.00) m/cumm Hgb (13.5-17.5) g/dL Hct (40.0-50.0) % RDW (11.8-14.1) % Absolute Lymphocytes (1.2-3.4) k/cumm PT 12.2 H (9.3-11.0) sec INR 1.2 H (0.9-1.1) APTT 31.6 H (21.0-31.4) sec BUN (7-18) mg/dL Glucose (70-100) mg/dL Calcium (8.5-10.1) mg/dL Ferritin > 1000 H (8-388) ng/mL AST (15-37) U/L Alkaline Phosphatase (46-116) U/L Albumin (3.4-5.0) g/dL Urine Urobilinogen (Up TO 0.2) EU/dL Crossmatch See Detail 11/07/18 11/08/18 11/08/18 Range/Units 18:08 05:10 05:10 WBC 4.23 L (4.4-10.8) k/cumm RBC 3.21 L (4.50-6.00) m/cumm Hgb 9.0 L D (13.5-17.5) g/dL Hct 27.5 L D (40.0-50.0) % RDW 16.2 H (11.8-14.1) % Absolute Lymphocytes 0.25 L (1.2-3.4) k/cumm PT (9.3-11.0) sec INR (0.9-1.1) APTT (21.0-31.4) sec BUN 23 H (7-18) mg/dL Glucose 119 H (70-100) mg/dL Calcium 8.2 L (8.5-10.1) mg/dL Ferritin (8-388) ng/mL AST 116 H (15-37) U/L Alkaline Phosphatase 368 H (46-116) U/L Albumin 2.2 L (3.4-5.0) g/dL Urine Urobilinogen 1.0 H (Up TO 0.2) EU/dL Crossmatch Vital Signs Temperature 36.9 C 11/08/18 10:32 Temperature Source Tympanic 11/08/18 10:32 Pulse 77 11/08/18 10:32 Pulse Rhythm Regular 11/08/18 08:05 Respiratory Rate 18 11/08/18 10:32 Respiratory Effort Non-Labored 11/08/18 08:05 Respiratory Depth Normal 11/08/18 08:05 Respiratory Pattern Normal 11/08/18 08:05 Blood Pressure 106/61 11/08/18 10:32 Blood Pressure Position Supine 11/07/18 12:57 Pulse Oximetry 100 11/08/18 10:32 Oxygen Delivery Method Room Air 11/08/18 10:32 Oxygen Flow Rate 0 11/08/18 10:32 Pain Level 0 11/08/18 10:32 Intake & Output 11/07/18 11/08/18 11/08/18 23:59 11:59 23:59 Intake Total 940 / 940 2270.833 / 2270.833 Output Total 550 / 550 325 / 325 Balance 390 / 390 1945.833 / 1945.833 Weight 84.4 kg Intake: IV 120 / 120 833 / Blood Product 780 / 780 250 / 250 Rbc Leuko Reduced Unit 250 / 250 [id number] Rbc Leuko Reduced Unit 280 / 280 [id number] Rbc Leuko Reduced Unit 250 / 250 [id number] Rbc Leuko Reduced Unit 250 / 250 [id number] Other 40 / 40 30 / 30 Rbc Leuko Reduced Unit 20 / 20 [id number] Rbc Leuko Reduced Unit 30 / 30 [id number] Rbc Leuko Reduced Unit 20 / 20 [id number] Output: Urine 550 / 550 325 / 325 Other: Urine Color Yellow Yellow Straw Urine Appearance Clear Clear Urine Odor Normal Normal Stool Occult Blood Negative Stool Size Moderate Stool Characteristics Soft Liquid Brown Voiding Methods Toilet Urinal Laboratory Results WBC 4.23 k/cumm (4.4-10.8) L 11/08/18 05:10 RBC 3.21 m/cumm (4.50-6.00) L 11/08/18 05:10 Hgb 9.0 g/dL (13.5-17.5) L D 11/08/18 05:10 Hgb Cancelled 11/08/18 05:10 Hct 27.5 % (40.0-50.0) L D 11/08/18 05:10 Hct Cancelled 11/08/18 05:10 MCV 85.7 fL (80-95) D 11/08/18 05:10 MCH 28.0 pg (27.0-33.0) 11/08/18 05:10 MCHC 32.7 g/dL (32.0-36.0) 11/08/18 05:10 RDW 16.2 % (11.8-14.1) H 11/08/18 05:10 Plt Count 142 x1000/uL (130-400) 11/08/18 05:10 MPV 8.8 fL (8.0-11.0) 11/08/18 05:10 Immature Gran % 0.0 11/08/18 05:10 Neutrophils % 79.0 11/08/18 05:10 Band Neutrophils % 6.0 % 11/08/18 05:10 Lymphocytes % 6.0 11/08/18 05:10 Monocytes % 5.0 11/08/18 05:10 Eosinophils % 0.0 11/08/18 05:10 Basophils % 0.0 11/08/18 05:10 Metamyelocytes % 3.0 % 11/08/18 05:10 Myelocytes % 1.0 % 11/08/18 05:10 Absolute Neutrophils 3.60 k/cumm (1.2-6.7) 11/08/18 05:10 Absolute Lymphocytes 0.25 k/cumm (1.2-3.4) L 11/08/18 05:10 Absolute Monocytes 0.21 k/cumm (0.11-0.7) 11/08/18 05:10 Absolute Eosinophils 0.00 k/cumm (0.0-0.7) 11/08/18 05:10 Absolute Basophils 0.00 k/cumm (0.0-0.2) 11/08/18 05:10 Differential Comment Manual differential 11/08/18 05:10 RBC Morphology Normal 11/08/18 05:10 Polychromasia Present 11/07/18 13:05 Hypochromasia 1+ 11/07/18 13:05 Poikilocytosis 1+ 11/07/18 13:05 Anisocytosis 2+ 11/07/18 13:05 Microcytosis 1+ 11/07/18 13:05 PT 12.2 sec (9.3-11.0) H 11/07/18 14:15 INR 1.2 (0.9-1.1) H 11/07/18 14:15 APTT 31.6 sec (21.0-31.4) H 11/07/18 14:15 Sodium 137 mmol/L (136-145) 11/08/18 05:10 Potassium 4.3 mmol/L (3.5-5.1) 11/08/18 05:10 Chloride 103 mmol/L (98-107) 11/08/18 05:10 Carbon Dioxide 24.5 mmol/L (21.0-32.0) 11/08/18 05:10 Anion Gap 9.5 mmol/L (3-11) 11/08/18 05:10 BUN 23 mg/dL (7-18) H 11/08/18 05:10 Creatinine 1.15 mg/dL (0.70-1.30) 11/08/18 05:10 Estimated GFR/1.73 m2 >= 60.00 (mL/min/1.73m2) 11/08/18 05:10 Glucose 119 mg/dL (70-100) H 11/08/18 05:10 Calcium 8.2 mg/dL (8.5-10.1) L 11/08/18 05:10 Ferritin > 1000 ng/mL (8-388) H 11/07/18 13:14 Total Bilirubin 1.0 mg/dL (0.2-1.0) 11/08/18 05:10 AST 116 U/L (15-37) H 11/08/18 05:10 ALT 44 U/L (16-63) 11/08/18 05:10 Alkaline Phosphatase 368 U/L (46-116) H 11/08/18 05:10 Total Protein 6.5 g/dL (6.4-8.2) 11/08/18 05:10 Albumin 2.2 g/dL (3.4-5.0) L 11/08/18 05:10 Urine Color Yellow (Yellow) 11/07/18 18:08 Urine Clarity Clear (Clear) 11/07/18 18:08 Urine pH 6.0 (5-8) 11/07/18 18:08 Ur Specific [place] <= 1.005 (1.005-1.025) 11/07/18 18:08 Urine Protein Negative mg/dL (Negative) 11/07/18 18:08 Urine Ketones Negative mg/dL (Negative) 11/07/18 18:08 Urine Blood Negative (Negative) 11/07/18 18:08 Urine Nitrite Negative (Negative) 11/07/18 18:08 Urine Bilirubin Negative (Negative) 11/07/18 18:08 Urine Urobilinogen 1.0 EU/dL (Up TO 0.2) H 11/07/18 18:08 Ur Leukocyte Esterase Negative (Negative) 11/07/18 18:08 Urine Glucose Negative mg/dL (Negative) 11/07/18 18:08 Pathology Consult Spec Cancelled 11/07/18 16:57 Patient ABO/Rh B Positive 11/07/18 13:05 Antibody Screen Negative 11/07/18 13:05 Crossmatch See Detail 11/07/18 13:05
[2018-11-08 16:08] LABS: HCT 30.4 % (40.0-50.0)
[2018-11-08] MEDS: Metoprolol CR 25 MG TABCR PO (16:09)
[2018-11-09 03:15] VITALS: BP 97/61; PULSE 78; RESP 17; TEMP 37.1; O2SAT 100
[2018-11-09] MEDS: Lactated Ringers 1,000 ML 50 ML IV ×2 (08:21→21:00)
[2018-11-09 09:28] VITALS: BP 100/66; PULSE 92; RESP 12; TEMP 35.7; O2SAT 99
[2018-11-09] MEDS: Sucralfate 1 GM TAB PO ×2 (09:29→11:31)
[2018-11-09] MEDS: Ciprofloxacin 250 MG TAB PO ×2 (09:29→21:00)
[2018-11-09 11:20] LABS: HCT 31.6 % (40.0-50.0); HGB 10.3 g/dL (13.5-17.5)
[2018-11-09] MEDS: Torsemide 100 MG TAB PO (11:31)
--- NOTE | 2018-11-09 14:30 | PGE_ITS ---
Date of Service Date of service: 11/09/18 Time of Service: 14:30 Assessment and Plan Assessment and plan (1) Bone metastases: Status: Acute (2) Metastasis to adrenal gland: Status: Acute (3) Iron deficiency anemia due to chronic blood loss: Status: Acute Assessment and plan: pt hgb is stable -iron studies are still low. Most likely this is residential anemia secondary to loss from bleeding from bladder. (Prostate cancer is directly eroding into bladder). He had XRT in August for palliation for the bleeding. He is not having any further hematuria at this time. But his iron level was 16- so he is severely depleted of Iron stores. will cont to replace. His last CE was about 5 yrs ago. He does have a hx of polyps. We will do a CE for complete eval of GI tract. The EGD was nl. Plan CE in am. bowel prep tonight. anticipate CE in am and than d/c home. Colonoscopy include but are not limited to: Bleeding infection perforation aspiration and complications of anesthesia. on reviewing the CT- prostate cancer is continuing to progress- new bony mets adn lesion in the adrenal gland. (4) Prostate cancer: Status: Chronic (5) Primary prostate cancer with metastasis from prostate to other site: Status: Acute (6) CAD (coronary artery disease): Status: Chronic (7) Hypotension: Status: Acute Assessment and plan: pt is on losaarten 50mg po daily toprolo XL 75mg po daily torsemide daily pt received diuretic today but am holding in am b/c bowel prepping. pt only received 25mg toprolo XL and SBP is in high 90's. (97 currently) 97/63 112/70 after 4 units and on no BP meds. I think he is on too much BP meds. Will hold losaarten at d/c and have him f/u w/ PCP for evaluation and re-adjust meds. Subjective Subjective Interval history since last seen: Pt is doing well. no headaches. No CP or SOB. no productive cough. no dysuria. no leg pain or swelling. no abdominal pain. no CP or SOB. no stools today. no hematuria. Exam Const General: cooperative, comfortable, no acute distress, well developed and well groomed Nutritional Appearance: average body habitus and well nourished Orientation: alert, awake and oriented x3 HENMT Head: normal to inspection, normocephalic and atraumatic Ears: hearing grossly normal bilaterally and external ears normal General nose exam: external nose normal Face and sinus: normal facial exam and sinuses nontender Mouth: oral mucosae normal, lip normal, tongue normal and moist mucous membranes Teeth and gingiva: dentition normal Eyes General: appearance normal, both eyes and all related structures Conjunctivae: conjunctivae normal Sclera: sclerae normal Pupils: PERRL Neck Neck: normal visual inspection and full ROM Chest Chest: normal inspection of the chest Resp Effort & Inspection: normal respiratory effort, able to speak in complete sentences, no cough, no nasal flaring, not tachypneic and no use of accessory muscles Auscultation: clear to auscultation bilaterally, no rales, no rhonchi and no wheezes Cardio Jugular venous pressure: no JVD Rate: regular rate Rhythm: regular rhythm GI Inspection: normal to inspection, no edema and non-distended Palpation: soft, no masses, nontender and No ascites Auscultation: normal bowel sounds Skin General skin exam: no rashes or lesions noted Trauma: no lacerations or abrasions Neuro General: alert, oriented x3, oriented, gait normal, moves all extremities, no focal motor deficits and CN's II-XI intact bilaterally Cognition: normal cognition Speech: speech normal Gait: normal gait Motor: muscle tone normal throughout Extrem General: normal to inspection, full ROM and no clubbing, cyanosis or edema Psych Appearance: grossly normal and well kempt Mental Status: mental status grossly normal Speech and Movement: speech and movement normal Affect: normal affect Objective Objective Clinical Data: Abnormal lab results 11/08/18 11/09/18 Range/Units 16:03 11:11 Hgb 10.0 L 10.3 L (13.5-17.5) g/dL Hct 30.4 L 31.6 L (40.0-50.0) % Vital Signs Temperature 37.1 C 11/09/18 03:15 Temperature Source Tympanic 11/09/18 03:15 Pulse 78 11/09/18 03:15 Pulse Rhythm Regular 11/09/18 03:25 Respiratory Rate 17 11/09/18 03:15 Respiratory Effort Non-Labored 11/09/18 03:25 Respiratory Depth Normal 11/09/18 03:25 Respiratory Pattern Normal 11/09/18 03:25 Blood Pressure 97/61 L 11/09/18 03:15 Blood Pressure Position Supine 11/07/18 12:57 Pulse Oximetry 100 11/09/18 03:15 Oxygen Delivery Method Room Air 11/09/18 03:15 Oxygen Flow Rate 0 11/09/18 03:15 Pain Level 0 11/09/18 03:15 Intake & Output 11/08/18 11/09/18 11/09/18 23:59 11:59 23:59 Intake Total 240 / 2510.833 1380 / 1380 Output Total 2700 / 3025 750 / 750 Balance -2460 / -514.167 630 / 630 Intake: IV 1010 / 1010 Oral 240 / 240 370 / 370 Output: Urine 2700 / 3025 750 / 750 Other: Urine Color Yellow Yellow Urine Appearance Clear Clear Urine Odor Normal None Voiding Methods Urinal Urinal Laboratory Results WBC 4.23 k/cumm (4.4-10.8) L 11/08/18 05:10 RBC 3.21 m/cumm (4.50-6.00) L 11/08/18 05:10 Hgb 10.3 g/dL (13.5-17.5) L 11/09/18 11:11 Hct 31.6 % (40.0-50.0) L 11/09/18 11:11 MCV 85.7 fL (80-95) D 11/08/18 05:10 MCH 28.0 pg (27.0-33.0) 11/08/18 05:10 MCHC 32.7 g/dL (32.0-36.0) 11/08/18 05:10 RDW 16.2 % (11.8-14.1) H 11/08/18 05:10 Plt Count 142 x1000/uL (130-400) 11/08/18 05:10 MPV 8.8 fL (8.0-11.0) 11/08/18 05:10 Immature Gran % 0.0 11/08/18 05:10 Neutrophils % 79.0 11/08/18 05:10 Band Neutrophils % 6.0 % 11/08/18 05:10 Lymphocytes % 6.0 11/08/18 05:10 Monocytes % 5.0 11/08/18 05:10 Eosinophils % 0.0 11/08/18 05:10 Basophils % 0.0 11/08/18 05:10 Metamyelocytes % 3.0 % 11/08/18 05:10 Myelocytes % 1.0 % 11/08/18 05:10 Absolute Neutrophils 3.60 k/cumm (1.2-6.7) 11/08/18 05:10 Absolute Lymphocytes 0.25 k/cumm (1.2-3.4) L 11/08/18 05:10 Absolute Monocytes 0.21 k/cumm (0.11-0.7) 11/08/18 05:10 Absolute Eosinophils 0.00 k/cumm (0.0-0.7) 11/08/18 05:10 Absolute Basophils 0.00 k/cumm (0.0-0.2) 11/08/18 05:10 Differential Comment Manual differential 11/08/18 05:10 RBC Morphology Normal 11/08/18 05:10 Polychromasia Present 11/07/18 13:05 Hypochromasia 1+ 11/07/18 13:05 Poikilocytosis 1+ 11/07/18 13:05 Anisocytosis 2+ 11/07/18 13:05 Microcytosis 1+ 11/07/18 13:05 PT 12.2 sec (9.3-11.0) H 11/07/18 14:15 INR 1.2 (0.9-1.1) H 11/07/18 14:15 APTT 31.6 sec (21.0-31.4) H 11/07/18 14:15 Sodium 137 mmol/L (136-145) 11/08/18 05:10 Potassium 4.3 mmol/L (3.5-5.1) 11/08/18 05:10 Chloride 103 mmol/L (98-107) 11/08/18 05:10 Carbon Dioxide 24.5 mmol/L (21.0-32.0) 11/08/18 05:10 Anion Gap 9.5 mmol/L (3-11) 11/08/18 05:10 BUN 23 mg/dL (7-18) H 11/08/18 05:10 Creatinine 1.15 mg/dL (0.70-1.30) 11/08/18 05:10 Estimated GFR/1.73 m2 >= 60.00 (mL/min/1.73m2) 11/08/18 05:10 Glucose 119 mg/dL (70-100) H 11/08/18 05:10 Calcium 8.2 mg/dL (8.5-10.1) L 11/08/18 05:10 Ferritin > 1000 ng/mL (8-388) H 11/07/18 13:14 Total Bilirubin 1.0 mg/dL (0.2-1.0) 11/08/18 05:10 AST 116 U/L (15-37) H 11/08/18 05:10 ALT 44 U/L (16-63) 11/08/18 05:10 Alkaline Phosphatase 368 U/L (46-116) H 11/08/18 05:10 Total Protein 6.5 g/dL (6.4-8.2) 11/08/18 05:10 Albumin 2.2 g/dL (3.4-5.0) L 11/08/18 05:10 Urine Color Yellow (Yellow) 11/07/18 18:08 Urine Clarity Clear (Clear) 11/07/18 18:08 Urine pH 6.0 (5-8) 11/07/18 18:08 Ur Specific [place] <= 1.005 (1.005-1.025) 11/07/18 18:08 Urine Protein Negative mg/dL (Negative) 11/07/18 18:08 Urine Ketones Negative mg/dL (Negative) 11/07/18 18:08 Urine Blood Negative (Negative) 11/07/18 18:08 Urine Nitrite Negative (Negative) 11/07/18 18:08 Urine Bilirubin Negative (Negative) 11/07/18 18:08 Urine Urobilinogen 1.0 EU/dL (Up TO 0.2) H 11/07/18 18:08 Ur Leukocyte Esterase Negative (Negative) 11/07/18 18:08 Urine Glucose Negative mg/dL (Negative) 11/07/18 18:08 Pathology Consult Spec Cancelled 11/07/18 16:57 Patient ABO/Rh B Positive 11/07/18 13:05 Antibody Screen Negative 11/07/18 13:05 Crossmatch See Detail 11/07/18 13:05
[2018-11-09] MEDS: Bisacodyl 5 MG TABEC 10 MG PO ×2 (14:34→18:09)
--- NOTE | 2018-11-09 18:40 | CMPROGNOTE_ITS ---
- If Service Date Differs Date of service: 11/09/18 Time of Service: 18:40 Care Management Progress Note S/O: Josiah was sitting up in a chair when CM came to see him. He stated that he is feeling better and hopes to be discharged today. He still had not seen the doctor at the time of the visit. Hct and Hgb are slowly improving. A: Josiah is a 68 year old man admitted to [facility] on 11/07/18 with blood loss anemia P: Josiah will be discharged home with no additional services. He will follow up with his surgeon, PCP, and the discharge plan of care. He will transport via private vehicle with Malu when ready. CM will continue to support to patient, family and discharge planning needs.
[2018-11-09] MEDS: LORazepam 0.5 MG TAB PO (20:58)
[2018-11-09 21:00] VITALS: BP 121/77; PULSE 100; RESP 17; TEMP 36.5; O2SAT 98
[2018-11-09 23:06] LABS: LDH 556 U/L (85-227)
[2018-11-10 00:19] VITALS: BP 104/71; PULSE 103; RESP 16; TEMP 37; O2SAT 94
[2018-11-10] MEDS: Ciprofloxacin 250 MG TAB PO (07:45)
[2018-11-10 07:52] LABS: Iron 37 ug/dL (50-175); Total Iron Binding Capacity 217 ug/dL (250-450); Transferrin Sat 17 % (20-55)
[2018-11-10 08:24] VITALS: BP 101/68; PULSE 104; RESP 20; TEMP 36.7; O2SAT 94
[2018-11-10] MEDS: Lactated Ringers 1,000 ML 50 ML IV (13:20)
--- NOTE | 2018-11-10 13:35 | BOWEL_PTH ---
PATIENT: CHANDA PATEL LOC: U#:[id number] AGE/SX: 68/M ROOM: 212 RE11/07/[address]: Janeen Retana : 1950 BED: A DIS: 11/10/2018 SPEC #: [id number] RECD: 11/10/18 17:49 STATUS: [facility] REQ #: [id number] YELITZA: 11/10/18 13:[address]: Janeen Retana DEPT: Surgical Specimen RECD BY: Lucia Wilder ENTERED: 11/10/18 17:50 SP TYPE: Bowel OTHR DR: Nolberto Robert Tissues: 1 - BIOPSY BOWEL Procedures: GROSS AND MICRO LEVEL 4 Comments: [id number]
--- NOTE | 2018-11-10 13:40 | W.COLOREPORT ---
Date of service: 11/10/18 Time of Service: 13:40 Colonoscopy Report Date of procedure: 11/10/18 Pre-op diagnosis general: GI bleed/ hx of polyps Post-op diagnosis procedure note: same Procedure: could not pass scope beyond 30cc. Prob a combination of XRT and prostate cancer. Surgeon: Janeen Retana Anesthesia proc note operative: MAC Estimated blood loss (mL): 0 Pathology: other Complications: None Disposition: floor Prep: [facility] Procedure Description: After informed consent was obtained the patient was taken to the procedure room and placed in a left decubitous position. Monitors were applied and a time out was done. The patients name, date of , procedure, allergies to medications and metal in their body was reviewed. The patient was then sedated. Once sedated and comfortable a rectal exam was done. External exam was normal. Internal exam revealed a normal sphincter tone and no palpable masses. The prostate enlarged and irreg. pt is s/p XRT of prostate. The scope was then introduced and retrofelexed. no internal hemorrhoids were identified. The prep was good. I could get the scope at far as 30cc. further than this- I could not get the scope to pass. We tried repositioning- but the scope would not pass. The mucosa seen was pink and healthy and no signs of radiation enteritis in colon/rectum. The scope was removed and the patient was woken up and taken back to Same day surgery in stable condition. Bx was taken for sigmoid colon. The patient tolerated the procedure well and there were no immediate complications. Follow up: The patient does not require any further CE's.
--- NOTE | 2018-11-10 14:45 | W.PM.DS.N ---
Date of service: 11/10/18 Time of Service: 14:45 DS: Diagnosis Discharge Diagnosis (1) Bone metastases: Status: Acute (2) Metastasis to adrenal gland: Status: Acute (3) Iron deficiency anemia due to chronic blood loss: Status: Acute (4) Prostate cancer: Status: Chronic (5) Primary prostate cancer with metastasis from prostate to other site: Status: Acute (6) CAD (coronary artery disease): Status: Chronic (7) Hypotension: Status: Acute Discharge Plan Disposition Patient Disposition: HOME Condition: Stable Discharge Details Chief Complaint: GenMedical Clinical Impression: Anemia Reason For Visit: ANEMIA Admit Date/Time: 11/07/18 16:52 Admit Provider: Janeen Retana Attending Provider: Janeen Retana Primary Care Provider: Nolberto Robert ED Provider: Barak Felton Hospital Course Hospital Course: pt was admitted w/ hgb of 5.0 and hypotension. He was transfused 4 units PRBC. EGD was performed and was nl. flex sig ws done and shows no radiation proctitis. He BP continue to be low in the hosp even once he was fluid resuscitated and received blood products. He can cont ASA and diuretics at home. I am giving him an Rx for metoprolol 25mg. He should F/u w/ PCP this week for BP check. Home Meds and New Rx's Prescriptions: New metoprolol succinate 25 mg tablet extended release 24 hr 25 mg PO DAILY Qty: 30 RF: 12 Continued leuprolide 1 MG/0.2 ML kit 22.5 mg SQ every 3 mos RF: 0 cholecalciferol (vitamin D3) 1,000 UNITS tablet 2 tab PO DAILY RF: 0 calcium carbonate [Calcium 500] 500 mg calcium (1,250 mg) Tablet 500 mg PO DAILY RF: 0 atorvastatin [Lipitor] 40 MG tablet 40 mg PO HS RF: 0 torsemide 20 MG tablet 100 mg PO DAILY RF: 0 aspirin [Aspir-81] 81 MG tablet,delayed release (DR/EC) 81 mg PO DAILY RF: 0 Multi-Day with Iron 18-400 mg-mcg Tablet 1 tab PO DAILY RF: 0 Discontinued losartan 50 MG tablet 50 mg PO QPM RF: 0 metoprolol succinate [Toprol XL] 50 MG tablet extended release 24 hr 75 mg PO DAILY RF: 0 Discharge Instructions Instructions: Iron Deficiency Anemia (DC) Additional Instructions: -F/u this week w/ PCP for BP and hgb check. BP was very low while you were in the hospital. You were discharged home with a lower dose of B Bogdan and holding your losaarten. I want you to F/u w/ your PCP for BP check this week to re-evaluate your blood pressure. -Cont po daily Mult Vit w/ Iron. Iron Rich Foods Food has two types of iron ? heme and non-heme iron. Heme iron is found in meat, fish and poultry. It is the form of iron that is most readily absorbed by your body. You absorb up to 30 percent of the heme iron that you consume. Eating meat generally boosts your iron levels far more than eating non-heme iron. Non-heme iron is found in plant-based foods such as fruits, vegetables and nuts. Foods with non-heme iron are still an important part of a nutritious, well-balanced diet, but the iron contained in these foods won?t be absorbed as completely. You absorb between two and 10 percent of the non-heme iron that you consume. When you eat heme iron with foods higher in non-heme iron, the iron will be more completely absorbed by your body. Foods high in vitamin C ? like tomatoes, citrus fruits and red, yellow and orange peppers ? can also help with the absorption of non-heme iron. The amount and type of iron in your diet is important. Some iron-rich foods are: Meat and Eggs ?Beef ?Singer ?Ham ?Clayton ?Chicken ?Veal ?Pork ?Dried beef ?Liver ?Liverwurst ?Eggs (any style) Seafood ?Shrimp ?Clams ?Scallops ?Oysters ?Tuna ?Sardines ?Renetta ?Mackerel Vegetables ?Spinach ?Sweet potatoes ?Peas ?Broccoli ?String beans ?Beet greens ?Dandelion greens ?Collards ?Kale ?Chard Bread and Cereals ?Whole wheat bread ?Enriched pasta ?Wheat products ?Bran cereals ?[place] meal ?Oat cereal ?Cream of Wheat ?[place] bread ?Enriched rice Fruit ?Strawberries ?Watermelon ?Raisins ?Dates ?Figs ?Prunes ?Prune juice ?Dried apricots ?Dried peaches Beans and Other Foods ?Tofu ?Beans (kidney, garbanzo, or white, canned) ?Tomato products (e.g., paste) ?Dried peas ?Dried beans ?Lentils ?Instant breakfast ?[place] syrup ?Maple syrup ?Molasses Stand Alone Forms: Nursing Discharge Form Referrals: Haven Molina [NURSE PRACTITIONER] - 11/13/18 10:45 am Activity:: no strenuous activity and F/u w/ PCP Equipment/Supplies:: No Equipment Needed Diet:: Low Sodium Discharge Orders Discharge Orders: Discharge Order (Routine); Ordered 11/10/18 Ordered By: Janeen Retana Discharge Data Discharge Date/Time-TO BE ENTERED AT DEPARTURE: 11/10/18 16:43 DS: Summary Status at Discharge Functional status at discharge: independent ambulation Overall status at discharge: patient is back to baseline Mental Status: mental status grossly normal Speech and Movement: speech and movement normal Mood: congruent mood Affect: normal affect Exam Const General: cooperative, healthy appearing, comfortable, no acute distress, well developed and well groomed Nutritional Appearance: average body habitus and well nourished Orientation: alert, awake and oriented x3 HENMT Head: normal to inspection, normocephalic and atraumatic Ears: hearing grossly normal bilaterally and external ears normal General nose exam: external nose normal Face and sinus: normal facial exam and sinuses nontender Mouth: oral mucosae normal, lip normal, tongue normal and moist mucous membranes Teeth and gingiva: dentition normal Eyes General: appearance normal, both eyes and all related structures Conjunctivae: conjunctivae normal Sclera: sclerae normal Pupils: PERRL Neck Neck: normal visual inspection and full ROM Chest Chest: normal inspection of the chest Resp Effort & Inspection: normal respiratory effort, able to speak in complete sentences, no cough, no nasal flaring, not tachypneic and no use of accessory muscles Auscultation: clear to auscultation bilaterally, no rales, no rhonchi and no wheezes Cardio Jugular venous pressure: no JVD Rate: regular rate Rhythm: regular rhythm GI Inspection: normal to inspection, no edema and non-distended Palpation: soft, no masses, nontender and No ascites Auscultation: normal bowel sounds Skin General skin exam: no rashes or lesions noted Trauma: no lacerations or abrasions Neuro General: alert, oriented x3, oriented, gait normal, moves all extremities, no focal motor deficits and CN's II-XI intact bilaterally Cognition: normal cognition Speech: speech normal Gait: normal gait Motor: muscle tone normal throughout Extrem General: normal to inspection, full ROM and no clubbing, cyanosis or edema Psych Appearance: grossly normal and well kempt Mental Status: mental status grossly normal Speech and Movement: speech and movement normal Mood: congruent mood Affect: normal affect DS: Data Vitals/I&O Vitals and I&O: Vital Signs Temperature 36.7 C 11/10/18 08:24 Temperature Source Skin 11/10/18 08:24 Pulse 104 H 11/10/18 08:24 Pulse Rhythm Regular 11/10/18 00:25 Respiratory Rate 20 11/10/18 08:24 Respiratory Effort Non-Labored 11/10/18 00:25 Respiratory Depth Normal 11/10/18 00:25 Respiratory Pattern Normal 11/10/18 00:25 Blood Pressure 101/68 11/10/18 08:24 Blood Pressure Position Supine 11/07/18 12:57 Pulse Oximetry 94 L 11/10/18 08:24 Oxygen Delivery Method Room Air 11/10/18 08:24 Oxygen Flow Rate 0 11/10/18 08:24 Pain Level 0 11/10/18 08:24 Intake & Output 11/09/18 11/10/18 11/10/18 23:59 11:59 23:59 Intake Total 1202.5 / 2582.5 250 / 450 200 / 450 Output Total 2400 / 3500 1600 / 1600 Balance -1197.5 / -917.5 -1350 / -1150 200 / -1150 Intake: IV 632.5 / 1642.5 200 / 200 Oral 570 / 940 250 / 250 Output: Urine 2400 / 3500 Stool 1600 / 1600 Other: Urine Color Yellow Urine Appearance Clear Clear Urine Odor None Comment mixed with urine. Stool Size Small Moderate Stool Characteristics Liquid Liquid Brown Voiding Methods Urinal Bedside Commode Toilet Data Completed and Pending Labs on day of discharge: Labs from last 24 hours 11/10/18 11/09/18 11/09/18 07:00 11:11 11:11 Iron 37 L TIBC 217 L Transferrin % Sat 17 L Lactate Dehydrogenase 556 H Prostate Specific Ag Pending Pathology Consult Spec Crossmatch 11/07/18 11/07/18 13:05 13:05 Iron TIBC Transferrin % Sat Lactate Dehydrogenase Prostate Specific Ag Pathology Consult Spec Crossmatch See Detail [facility] Medical History Bone metastases (Acute) CAD (coronary artery disease) (Chronic) Cardiomyopathy (Chronic) Hypotension (Acute) Iron deficiency anemia due to chronic blood loss (Acute) Metastasis to adrenal gland (Acute) Primary prostate cancer with metastasis from prostate to other site (Acute) Prostate cancer (Chronic) Prostate cancer (Chronic) Surgical History S/P implantation of automatic cardioverter/defibrillator (AICD) (Inactive) S/P orchiectomy (Inactive) Social History Smoking/Tobacco Use Status: Never Alcohol Intake: never Drug use: Never Substance use type: does not use Do you feel safe at home: Yes Do you feel safe in your relationship?: Yes
[2018-11-10] MEDS: IRON SUCROSE COMPLEX 200 MG in Normal Saline 100 ML 110 MG IVPB (15:07)
--- NOTE | 2018-11-10 15:27 | CHAPLAIN ---
I visited with Josiah's , Malu (an [employer] nurse) while Josiah was getting his colonoscopy. Malu told me about what led to his hospitalization, and her concerns. Josiah was diagnosed with prostrate cancer 10 years ago. Malu has been worried about his anemia, but said Josiah was looking and feeling better since he was given some blood. We talked about what this experience of dealing with Josiah's cancer diagnosis and treatments have been like for Malu, and what she does when she needs to relax and gather strength. Both Malu and Josiah belong to the [facility] [employer] and their exchange specialist, Pastor Medina, was into visit Josiah on Saturday night.
--- NOTE | 2018-11-10 17:24 | PDOC.CMDIS ---
- If Service Date Differs Date of service: 11/10/18 Time of Service: 17:24 LACE Index Scoring Tool - Questions: Length of Stay (in days): 3 Acuity (Admit via E.D.?): Yes Comorbidities: Metastatic Solid Tumor E.D. Visits: 6 - Answers: Total Score: 15 Risk of Readmission: High Risk Care Management Discharge Reason for Hospitalization: iron deficiency anemia secondary to chronic blood loss Discharge Plan: Josiah will be discharged home with no new services. He will transport with his and follow up with his surgeon, PCP and discharge plan of care. Patient/Family Education Needs: Discharge plan, limitations, follow up plan and Ask Me Three.
[2018-11-11 12:34] LABS: PSA, Diagnostic 832.8 ng/ml (0-4.5)
== END 2018-11-10 16:43 | disposition home or self-care (01) | DRG 812 ==
LOC: ER 17:58 → MS 18:22
PROVIDERS: Admitting Provider Surgery; Emergency Provider Student in an Organized Health Care Education/Training Program; PCP Specialist/Technologist Athletic Trainer; Visit Provider Surgery
PROC: 0DJ68ZZ Inspection of Stomach, Via Natural or Artificial Opening Endoscopic (ICD-10-PCS; CPT 43235; principal; 2018-11-08 09:20)
PROC: 0DJD8ZZ Inspection of Lower Intestinal Tract, Via Natural or Artificial Opening Endoscopic (ICD-10-PCS; CPT 45378; principal; 2018-11-10 14:45)
DX: D50.0 Iron deficiency anemia secondary to blood loss (chronic) (principal); C79.11 Secondary malignant neoplasm of bladder; C79.51 Secondary malignant neoplasm of bone; C79.70 Secondary malignant neoplasm of unspecified adrenal gland; N02.9 Recurrent and persistent hematuria with unspecified morphologic changes; K92.2 Gastrointestinal hemorrhage, unspecified; I25.10 Atherosclerotic heart disease of native coronary artery without angina pectoris; C61 Malignant neoplasm of prostate; K44.9 Diaphragmatic hernia without obstruction or gangrene; K20.9 Esophagitis, unspecified; I95.9 Hypotension, unspecified; Z86.010 Personal history of colon polyps; Z92.3 Personal history of irradiation
CPT/HCPCS: 43235; 45380; 36415; 36430; 80053; 86850; 86900; 86901; 86920; 88305; 93005; 99222; 99232; 99239; 99285; J3490; 71046; 74177; 81003; 82728; 83540; 83550; 83615; 84153; 85014; 85018; 85025; 85610; 85730; 88361; 93010; J1756; P9016

== ENCOUNTER 2018-11-17 09:12 | Outpatient (CLI) | payer OTHER, SELFPAY ==
[2018-11-17 09:50] LABS: Absolute Basophil Count 0.01 k/cumm (0.0-0.2); Absolute Eosinophil Count 0.01 k/cumm (0.0-0.7); Absolute Lymphocyte Count 0.31 k/cumm (1.2-3.4); Absolute Monocyte Count 0.38 k/cumm (0.11-0.7); Absolute Neutrophil Count 4.94 k/cumm (1.2-6.7); Basophils % 0.2; Eosinophils % 0.2; HCT 26.6 % (40.0-50.0); HGB 8.5 g/dL (13.5-17.5); Immature Grans % 1.7; Lymphocytes % 5.4; Mean Corpuscular Hemoglobin 27.4 pg (27.0-33.0); Mean Corpuscular Volume 85.8 fL (80-95); Mean Platelet Volume 8.9 fL (8.0-11.0); Monocytes % 6.6; Neutrophils % 85.9; Platelet Count 139 x1000/uL (130-400); RBC Distribution Width 16.2 % (11.8-14.1); White Blood Cell Count 5.75 k/cumm (4.4-10.8)
[2018-11-17 10:14] LABS: ALT 108 U/L (16-63); AST 233 U/L (15-37); Albumin 1.9 g/dL (3.4-5.0); Alkaline Phosphatase 630 U/L (46-116); Anion Gap 13.7 mmol/L (3-11); BUN 35 mg/dL (7-18); CO2 23.3 mmol/L (21.0-32.0); CREATININE 1.39 mg/dL (0.70-1.30); Calcium 8.6 mg/dL (8.5-10.1); Chloride 93 mmol/L (98-107); Estimated GFR 50.67 (mL/min/1.73m2); Glucose 230 mg/dL (70-100); NT-proBNP 1872 pg/mL; Potassium 3.9 mmol/L (3.5-5.1); Sodium 130 mmol/L (136-145); Total Protein 7.2 g/dL (6.4-8.2)
[2018-11-18 14:27] LABS: PSA, Diagnostic 922.2 ng/ml (0-4.5)
[2018-11-19 11:33] LABS: Testosterone, Total <7.0 ng/dL (240-950)
== END 2018-11-17 09:32 ==
PROVIDERS: Internal Medicine; PCP Specialist/Technologist Athletic Trainer; Visit Provider Specialist/Technologist Athletic Trainer
DX: I50.22 Chronic systolic (congestive) heart failure (principal); I25.5 Ischemic cardiomyopathy; C61 Malignant neoplasm of prostate; D64.9 Anemia, unspecified
CPT/HCPCS: 36415; 80053; 84403; 83880; 84153; 85025

== ENCOUNTER 2018-12-11 12:27 | Outpatient (CLI) | payer OTHER, SELFPAY ==
[2018-12-11 13:34] LABS: HCT 27.5 % (40.0-50.0); HGB 8.8 g/dL (13.5-17.5); Mean Corpuscular Hemoglobin 27.4 pg (27.0-33.0); Mean Corpuscular Volume 85.7 fL (80-95); Mean Platelet Volume 10.4 fL (8.0-11.0); RBC 3.21 m/cumm (4.50-6.00); RBC Distribution Width 15.4 % (11.8-14.1); White Blood Cell Count 3.66 k/cumm (4.4-10.8)
[2018-12-11 13:55] LABS: ALT 86 U/L (16-63); AST 138 U/L (15-37); Albumin 2.1 g/dL (3.4-5.0); Alkaline Phosphatase 628 U/L (46-116); Anion Gap 14.8 mmol/L (3-11); BUN 25 mg/dL (7-18); Bilirubin, Total 0.8 mg/dL (0.2-1.0); CO2 23.2 mmol/L (21.0-32.0); CREATININE 1.15 mg/dL (0.70-1.30); Calcium 8.6 mg/dL (8.5-10.1); Chloride 96 mmol/L (98-107); Glucose 137 mg/dL (70-100); NT-proBNP 2310 pg/mL; Potassium 3.7 mmol/L (3.5-5.1); Sodium 134 mmol/L (136-145); Total Protein 7.2 g/dL (6.4-8.2)
[2018-12-11 14:16] LABS: Absolute Lymphocyte Count 0.62 k/cumm (1.2-3.4); Absolute Monocyte Count 0.11 k/cumm (0.11-0.7); Absolute Neutrophil Count 2.89 k/cumm (1.2-6.7); Atypical Lymphocytes % 3; Diff Comment Manual Differential; Other Cells 1; Platelet Count 75 x1000/uL (130-400)
[2018-12-11 14:17] LABS: RBC Morphology Normal
[2018-12-12 12:29] LABS: PSA, Diagnostic 1087.2 ng/ml (0-4.5)
[2018-12-15 12:52] LABS: Testosterone, Total <7.0 ng/dL (240-950)
== END 2018-12-11 12:47 ==
PROVIDERS: PCP Specialist/Technologist Athletic Trainer; Visit Provider Internal Medicine
DX: I25.5 Ischemic cardiomyopathy (principal); I50.22 Chronic systolic (congestive) heart failure; C61 Malignant neoplasm of prostate
CPT/HCPCS: 36415; 80053; 84403; 86850; 86900; 86901; 86920; 83880; 84153; 85025

== ENCOUNTER 2018-12-18 11:29 | Outpatient (CLI) | payer OTHER, SELFPAY | END 2018-12-18 11:49 | PROVIDERS: PCP Specialist/Technologist Athletic Trainer; Visit Provider Internal Medicine | DX: C61 Malignant neoplasm of prostate (principal); I25.5 Ischemic cardiomyopathy | CPT/HCPCS: 36415; 86850; 86900; 86901; 86920; 85025 ==

== ENCOUNTER 2018-12-24 03:35 | Outpatient (CLI) | payer OTHER, SELFPAY | END 2018-12-24 03:55 | PROVIDERS: PCP Specialist/Technologist Athletic Trainer; Visit Provider Internal Medicine | DX: C61 Malignant neoplasm of prostate (principal); I25.5 Ischemic cardiomyopathy; I50.22 Chronic systolic (congestive) heart failure | CPT/HCPCS: 36415; 80053; 84403; 86850; 86900; 86901; 86920; 83880; 84153; 85025 ==

== ENCOUNTER 2018-12-26 08:00 | Outpatient (RCR) | payer OTHER, SELFPAY ==
[2018-12-18 11:47] LABS: Abs Immature Grans 0.12 k/cumm (0.0-0.09); Mean Corpuscular Hemoglobin 27.4 pg (27.0-33.0); Mean Corpuscular Volume 85.8 fL (80-95); RBC 2.26 m/cumm (4.50-6.00); RBC Distribution Width 15.3 % (11.8-14.1); White Blood Cell Count 5.75 k/cumm (4.4-10.8)
[2018-12-18 12:18] LABS: HGB 6.2 g/dL (13.5-17.5)
[2018-12-18 12:19] LABS: HCT 19.4 % (40.0-50.0)
[2018-12-18 12:21] LABS: Absolute Lymphocyte Count 0.46 k/cumm (1.2-3.4); Absolute Neutrophil Count 4.83 k/cumm (1.2-6.7); Platelet Count 68 x1000/uL (130-400)
[2018-12-18 12:22] LABS: Absolute Monocyte Count 0.35 k/cumm (0.11-0.7)
[2018-12-18 12:23] LABS: Anisocytosis 1+; Diff Comment Manual Differential; Poikilocytes 1+
[2018-12-19] VITALS (16 sets, daily range): BP systolic 69–95; BP diastolic 46–59; PULSE 71–116; RESP 18–20; TEMP 36.5–37; O2SAT 96–100
--- NOTE | 2018-12-19 09:55 | NUR.NOTE ---
Nursing Note: [facility] CALLED REGARDING TYLENOL ORDER. PT STATES HE HAS LOWER BACK PAIN THAT COMES AND GOES AND USES TYLENOL WHEN NEEDED. PT STATES HE DID NOT TAKE ANY TYLENOL PRIOR TO COMING TODAY. [facility] RECEIVES ORDER FROM PROVIDER FOR TYLENOL AND WILL FAX IT. [facility] ANDEXTRA PILLOWS ALSO OFFERED TO PT FOR COMFORT.
[2018-12-19] MEDS: Acetaminophen 325 MG TAB 650 MG PO (10:28)
[2018-12-24 10:17] LABS: HCT 24.5 % (40.0-50.0); HGB 7.8 g/dL (13.5-17.5); Mean Corp. HGB Concentration 31.8 g/dL (32.0-36.0); Mean Corpuscular Volume 84.8 fL (80-95); Mean Platelet Volume 9.7 fL (8.0-11.0); RBC 2.89 m/cumm (4.50-6.00); RBC Distribution Width 15.1 % (11.8-14.1)
[2018-12-24 10:30] LABS: ALT 55 U/L (16-63); AST 95 U/L (15-37); Albumin 1.8 g/dL (3.4-5.0); Alkaline Phosphatase 502 U/L (46-116); Anion Gap 14.2 mmol/L (3-11); BUN 36 mg/dL (7-18); Bilirubin, Total 0.9 mg/dL (0.2-1.0); CO2 20.8 mmol/L (21.0-32.0); CREATININE 1.18 mg/dL (0.70-1.30); Calcium 8.5 mg/dL (8.5-10.1); Chloride 95 mmol/L (98-107); Glucose 221 mg/dL (70-100); NT-proBNP 3682 pg/mL; Potassium 3.7 mmol/L (3.5-5.1); Sodium 130 mmol/L (136-145); Total Protein 6.5 g/dL (6.4-8.2)
[2018-12-24 10:34] LABS: Absolute Lymphocyte Count 0.26 k/cumm (1.2-3.4); Absolute Monocyte Count 0.23 k/cumm (0.11-0.7); Absolute Neutrophil Count 2.71 k/cumm (1.2-6.7); Platelet Count 43 x1000/uL (130-400)
[2018-12-24 10:35] LABS: Diff Comment Manual Differential; Microcytosis 1+; Polychromasia Present
[2018-12-25 12:24] LABS: PSA, Diagnostic 1115.1 ng/ml (0-4.5)
[2018-12-26] VITALS (14 sets, daily range): BP systolic 82–112; BP diastolic 55–77; PULSE 62–99; RESP 17–20; TEMP 36.2–37.1; O2SAT 96–100
[2018-12-29 12:04] LABS: Testosterone, Total <7.0 ng/dL (240-950)
== END 2019-01-17 23:59 | disposition home or self-care (01) ==
LOC: INF 08:00
PROVIDERS: PCP Specialist/Technologist Athletic Trainer; Visit Provider Internal Medicine
DX: C61 Malignant neoplasm of prostate (principal)
CPT/HCPCS: 36415; 36430; 80053; 84403; 86850; 86900; 86901; 86920; 83880; 84153; 85025; P9016

== ENCOUNTER 2019-01-01 02:04 | Outpatient (CLI) | payer OTHER, SELFPAY ==
[2019-01-01 09:18] LABS: Abs Immature Grans 0.17 k/cumm (0.0-0.09); Absolute Lymphocyte Count 0.61 k/cumm (1.2-3.4); Absolute Monocyte Count 0.36 k/cumm (0.11-0.7); Absolute Neutrophil Count 3.23 k/cumm (1.2-6.7); HCT 31.1 % (40.0-50.0); HGB 10.1 g/dL (13.5-17.5); Immature Grans % 3.9; Mean Corp. HGB Concentration 32.5 g/dL (32.0-36.0); Mean Corpuscular Hemoglobin 26.4 pg (27.0-33.0); Mean Corpuscular Volume 81.2 fL (80-95); Mean Platelet Volume 9.5 fL (8.0-11.0); Monocytes % 8.2; Neutrophils % 73.9; RBC 3.83 m/cumm (4.50-6.00); RBC Distribution Width 16.5 % (11.8-14.1); White Blood Cell Count 4.37 k/cumm (4.4-10.8)
[2019-01-01 09:44] LABS: Anisocytosis 1+; Diff Comment RBC Morph Reviewed; Hypochromasia 1+; Platelet Count 44 x1000/uL (130-400); Polychromasia Present
== END 2019-01-01 02:24 ==
PROVIDERS: PCP Specialist/Technologist Athletic Trainer; Visit Provider Internal Medicine
DX: C61 Malignant neoplasm of prostate (principal); I25.5 Ischemic cardiomyopathy
CPT/HCPCS: 36415; 86900; 86901; 85025

== ENCOUNTER 2019-01-08 03:18 | Outpatient (CLI) | payer OTHER, SELFPAY ==
[2019-01-08 09:27] LABS: HCT 25.1 % (40.0-50.0); Mean Corp. HGB Concentration 31.9 g/dL (32.0-36.0); Mean Corpuscular Hemoglobin 26.4 pg (27.0-33.0); Mean Corpuscular Volume 82.8 fL (80-95); Mean Platelet Volume 9.6 fL (8.0-11.0); Platelet Count 65 x1000/uL (130-400); RBC 3.03 m/cumm (4.50-6.00); RBC Distribution Width 16.5 % (11.8-14.1); White Blood Cell Count 3.87 k/cumm (4.4-10.8)
[2019-01-08 10:06] LABS: Absolute Eosinophil Count 0.04 k/cumm (0.0-0.7); Absolute Lymphocyte Count 0.43 k/cumm (1.2-3.4); Absolute Monocyte Count 0.15 k/cumm (0.11-0.7); Absolute Neutrophil Count 3.13 k/cumm (1.2-6.7)
[2019-01-08 10:07] LABS: Anisocytosis 1+; Diff Comment Manual Differential
== END 2019-01-08 03:38 ==
PROVIDERS: PCP Specialist/Technologist Athletic Trainer; Visit Provider Internal Medicine
DX: C61 Malignant neoplasm of prostate (principal); I25.5 Ischemic cardiomyopathy
CPT/HCPCS: 36415; 86900; 86901; 85025